=== PATIENT | male | born 1935 | race Caucasian/White ===

== ENCOUNTER 2019-12-29 15:43 | Emergency (ER) | payer OTHER, SELFPAY ==
--- NOTE | ~2019-12-29 | CT_ITS ---
EXAMINATION: CT abdomen pelvis w con DATE: 12/29/2019 17:28 INDICATION: Abdominal pain TECHNIQUE: Computed tomography (CT) of the abdomen and pelvis was performed with 100 cc Omnipaque 350 intravenous contrast. The dose-length product was 553.11 mGy-cm. Automated exposure control and iterative reconstruction technique were employed. COMPARISON: None. FINDINGS: There are mild peripheral reticular infiltrates in the lower lobes, possibly chronic fibros is. Moderate size hiatal hernia. Heart size is normal. No significant pleural or pericardial effusion . Gallbladder is contracted. The liver, spleen, adrenal glands and left kidney are unremarkable. There is a dilated right renal pelvis with abrupt termination at the UPJ, consistent with UPJ obstruction. There is mild urothelial enhancement of the right ureter, suspicious for ascending urinary tract infe ction. The bladder is severely distended with multiple diverticula. Prostate gland is enlarged. Left kidney is unremarkable. There is a complex soft tissue and gas collection involving the expected location of the pancreatic h ead which is insinuated anterior to the pancreatic and bile ducts. This structure effaces the adjacen t duodenum. One consideration is a complicated duodenal diverticulum versus necrotic pancreatic head mass. Nonobstructive bowel gas pattern. Colonic diverticulosis there is extensive pelvic arterial calcifica tion. Mild lumbar spondylosis. There is mixed lytic/sclerotic lesion of T11 which also involves the p osterior elements. No definite fracture. IMPRESSION: 1. Probable right UPJ obstruction with mild right urothelial enhancement, suspicious for ascending ur inary tract infection. 2: Enlarged prostate gland with significant bladder distention. Multiple bladder diverticula are iden tified. Findings suspicious for chronic bladder outlet obstruction. 3: Complex soft tissue and gas collection involving the expected location of the pancreatic head whic h is insinuated anterior to the pancreatic and bile ducts. Considerations include complicated duodena l diverticulum and necrotic pancreatic head malignancy. 4: Complex appearing T11 vertebra with mixed osteal lysis and sclerosis extending to the posterior el ements. Considerations include atypical hemangioma, Paget's disease and metastatic disease. Reviewed, dictated and finalized at location A. IMPRESSION: 1. Probable right UPJ obstruction with mild right urothelial enhancement, suspi cious for ascending urinary tract infection. 2: Enlarged prostate gland with significant bladder distention. Multiple bladde r diverticula are identified. Findings suspicious for chronic bladder outlet ob struction. 3: Complex soft tissue and gas collection involving the expected location of th e pancreatic head which is insinuated anterior to the pancreatic and bile ducts . Considerations include complicated duodenal diverticulum and necrotic pancrea tic head malignancy. 4: Complex appearing T11 vertebra with mixed osteal lysis and sclerosis extendi ng to the posterior elements. Considerations include atypical hemangioma, Paget 's disease and metastatic disease.
[2019-12-29 15:48] VITALS: BP 121/87; PULSE 82; RESP 20; TEMP 36.4; O2SAT 98
--- NOTE | 2019-12-29 16:37 | ED.ABDPAIN ---
HPI - Abdominal Pain General Chief Complaint: Abdominal Pain <Hugo Arriola PA-C - Last Filed: 12/29/19 19:53> Stated Complaint: abdominal pain/distention <Hugo Arriola PA-C - Last Filed: 12/29/19 19:53> Time Seen by Provider: 12/29/19 16:28 <Hugo Arriola PA-C - Last Filed: 12/29/19 19:53> Source: patient <Hugo Arriola PA-C - Last Filed: 12/29/19 19:53> Mode of arrival: ambulatory <Hugo Arriola PA-C - Last Filed: 12/29/19 19:53> Limitations: no limitations <Hugo Arriola PA-C - Last Filed: 12/29/19 19:53> History of Present Illness HPI narrative: Patient is a 84-year-old male who presents to emergency department for evaluation of generalized abdominal pain that radiates to the right shoulder noting that it has been present now for the last week and gradually worsened throughout the week denies similar occurrence in the past <Hugo Arriola PA-C - Last Filed: 12/29/19 19:53> Related Data Home Medications: Home Medications Medication Instructions Recorded Confirmed fenofibrate micronized 130 mg 130 mg PO DAILY 07/11/19 capsule omeprazole 20 mg capsule,delayed 20 mg PO DAILY 07/11/19 release <Hugo Arriola PA-C - Last Filed: 12/29/19 19:53> Allergies/Adverse Reactions: Allergies Allergy/AdvReac Type Severity Reaction Status Date / Time No Known Allergies Allergy Verified 12/29/19 16:33 <Hugo Arriola PA-C - Last Filed: 12/29/19 19:53> Review of Systems Review of Systems: All systems reviewed & are unremarkable except as noted in HPI and below <Hugo Arriola PA-C - Last Filed: 12/29/19 19:53> PMFSH Past Medical History Medical History: Medical History Vitamin B12 deficiency <Hugo Arriola PA-C - Last Filed: 12/29/19 19:53> Family History Family History: Family History Father Malignant neoplasm of prostate Carcinoma of colon Patient's father is Mother Family history of malignant neoplasm of breast in first degree relative Family history of malignant neoplasm Patient's mother is Sibling Patient's sister is in good health Patient's brother is in good health <Hugo Arriola PA-C - Last Filed: 12/29/19 19:53> Social History Social History: Social History Smoking status: Former smoker Smoking end date: 08/23/1963 Alcohol intake: current Gender identity (if verbalized by the patient): Male <Hugo Arriola PA-C - Last Filed: 12/29/19 19:53> Exam Narrative: Exam Narrative: GENERAL: Well-appearing, well-nourished, and in no acute distress. HEAD: Normocephalic, atraumatic. EYES: PERRLA and EOMI. ENT: Nares clear, no rhinorrhea or epistaxis. Mucous membranes moist. CHEST: Clear to auscultation. No respiratory distress. No wheezes rales or rhonchi HEART: Regular rate and rhythm. No murmur heard. Normal peripheral pulses. ABDOMEN: Soft, generalized tenderness with voluntary guarding, distended, normal active bowel sounds. EXTREMITIES: Normal range of motion. No edema. SKIN: Warm, dry, no rash. NEURO: No focal deficits. Alert and oriented x3. PSYCH: Normal mood and affect. <Hugo Arriola PA-C - Last Filed: 12/29/19 19:53> Course ANAESTHETIC TECHNICIAN/PA Physician Supervision Assumed care of patient from physician assistant manager bilingual at 2000 shift end, awaiting consultation with specialist at [facility]. Arrangements made for outpatient evaluation and care of patient's likely pancreatic mass. Patient will be referred to on-call urologist for his urinary retention. Patient has a primary care appointment with Dr. Mohamud on 01/03/2020. Advised to follow-up at that time and his primary care physician can assist with his outpatient evaluation at [place] and urology follow-u
[2019-12-29 16:52] LABS: Basophils Percent Auto 0.4 % (0.2-1.2); Eosinophils Absolute Auto 0.2 K/mm3 (0-0.3); Hematocrit 46.1 % (42.0-52.0); Hemoglobin 15.7 g/dL (14.0-18.0); Immature Granulocyte Absolute 0.01 K/mm3 (0.00-0.031); Immature Granulocyte Percent A 0.1 % (0-0.5); Lymphocytes Absolute Auto 2.15 K/mm3 (0.9-3.2); Lymphocytes Percent Auto 30.9 % (18.3-44.2); Mean Corpuscular HGB Conc 34.1 g/dl (32-36); Mean Corpuscular Hemoglobin 31.7 pg (26-34); Mean Corpuscular Volume 92.9 fl (80-100); Mean Platelet Volume 9.3 fl (7.4-10.4); Monocytes Absolute Auto 0.6 K/mm3 (0.1-0.6); Monocytes Percent Auto 8.2 % (2.6-8.5); Neutrophils Percent Auto 57.4 % (45.5-73.1); Platelet Count Result 313 k/mm3 (150-375); Red Blood Count 4.96 M/mm3 (4.6-6.20)
[2019-12-29] MEDS: FAMOTIDINE 20 MG/2 ML VIAL IV PUSH (16:53)
[2019-12-29] MEDS: SODIUM CHLORIDE 0.9% IV 1,000 ML 999 ML IV CONT (16:53)
[2019-12-29 17:02] LABS: Prothrombin Time 13.3 Seconds (11.1-14.7)
[2019-12-29 17:03] LABS: Lactic Acid Reflex 1.2 mmol/L (0.7-2.1); Partial Thromboplastin Time 31.8 SECONDS (22.3-36.8)
[2019-12-29 17:04] LABS: Add Urine Microscopic? YES; Appearance Urine Clear (Clear); Bilirubin Urine Negative (Negative); Blood Urine Negative (Negative); Color Urine Yellow (Yellow); Glucose Urine UA Negative (Negative); Ketones Urine Negative (Negative); Leukocyte Esterase Ur Negative LEU/UL (Negative); Nitrate Urine Negative (Negative); Protein Urine Negative (Negative); Urobilinogen Urine Negative mg/dL (<2.0); WBC Urine 0-3 /hpf
[2019-12-29 17:05] LABS: Alanine Aminotransferase 17 U/L (4-50); Albumin Level 4.4 g/dL (3.5-5.1); Alkaline Phosphatase 60 U/L (38-126); Aspartate Amino Transferase 30 U/L (17-59); Bilirubin,Total 0.4 mg/dL (0.2-1.3); Blood Urea Nitrogen 17 mg/dL (9-20); Calcium 9.9 mg/dL (8.4-10.2); Carbon Dioxide 26 mmol/L (22-30); Chloride 104 mmol/L (98-107); Estimated CRCL calculation 38 ml/min; Estimated Glomerular Filt Rate 53; Glucose 111 mg/dL (75-110); Lipase 180 U/L (23-300); Potassium 4.1 mmol/L (3.4-5.0); Sodium 137 mmol/L (137-145)
[2019-12-29 17:38] VITALS: BP 148/81; PULSE 71; RESP 18; O2SAT 97
[2019-12-29 20:09] VITALS: BP 138/92; PULSE 73; RESP 18; O2SAT 97
[2019-12-29 22:41] VITALS: BP 155/89; PULSE 65; RESP 18; O2SAT 97
[2019-12-29 22:54] VITALS: BP 146/88; PULSE 67; RESP 18; O2SAT 96
== END 2019-12-29 22:54 | disposition home or self-care (01) ==
PROVIDERS: Emergency Medicine Emergency Medical Services; Emergency Provider Emergency Medicine; PCP Internal Medicine
DX: K86.9 Disease of pancreas, unspecified (principal); R33.9 Retention of urine, unspecified; Z87.891 Personal history of nicotine dependence; E53.8 Deficiency of other specified B group vitamins
CPT/HCPCS: 36415; 51702; 74177; 80053; 81001; 83605; 83690; 85025; 85610; 85730; 96361; 96365; 96375; 99284; J0131; J7030; Q9967

== ENCOUNTER 2020-01-10 09:45 | Outpatient (CLI) | payer OTHER, SELFPAY ==
--- NOTE | ~2020-01-10 | US_ITS ---
EXAMINATION: US retroperitoneal comp DATE: 01/10/2020 10:24 INDICATION: Hydronephrosis TECHNIQUE: Multiple ultrasound grayscale images of the kidneys were obtained. COMPARISON: CT dated 12/29/2019 FINDINGS: The right kidney measures 10.4 x 6.2 x 5.1 cm. The left kidney measures 11.4 x 4.9 x 6.1 cm. The kidn eys demonstrate normal echogenicity. There is no hydronephrosis in either kidney. No stones identifi ed. The bladder is decompressed around a Shpepard catheter which limits evaluation although diffuse wall thickening is suggested. Prostatomegaly measuring 4.6 x 5.2 cm. IMPRESSION: 1. Normal kidneys without hydronephrosis. 2. Suggestion of bladder wall thickening however assessment is limited by decompressed state. This co uld be related to chronic outlet obstruction given the enlarged prostate and the presence of multiple bladder diverticula on prior CT. Reviewed, dictated and finalized at location A. IMPRESSION: 1. Normal kidneys without hydronephrosis. 2. Suggestion of bladder wall thickening however assessment is limited by decom pressed state. This could be related to chronic outlet obstruction given the en larged prostate and the presence of multiple bladder diverticula on prior CT.
== END 2020-01-10 09:46 | disposition home or self-care (01) ==
PROVIDERS: PCP Internal Medicine; Visit Provider Urology
DX: N13.30 Unspecified hydronephrosis (principal)
CPT/HCPCS: 76770

== ENCOUNTER 2020-04-01 13:10 | Outpatient (CLI) | payer OTHER, SELFPAY ==
--- NOTE | 2020-04-01 13:12 | ECG_ITS ---
Measurements Intervals [place] Rate: 75 P: 59 DE: 159 QRS: 27 QRSD: 142 T: 38 QT: 418 QTc: 469 Interpretive Statements SINUS RHYTHM FREQUENT VENTRICULAR PREMATURE COMPLEXES RIGHT BUNDLE BRANCH BLOCK BASELINE ARTIFACT- I, II, AVR, AVL, AVF ABNORMAL ECG Electronically Signed On 04-01-2020 13:37:55 CDT by Andrey Hightower D.O.
== END 2020-04-01 13:11 | disposition home or self-care (01) ==
PROVIDERS: PCP Internal Medicine; Visit Provider Urology
DX: Z01.818 Encounter for other preprocedural examination (principal); E78.5 Hyperlipidemia, unspecified; N40.0 Benign prostatic hyperplasia without lower urinary tract symptoms; R94.31 Abnormal electrocardiogram [ECG] [EKG]
CPT/HCPCS: 87086; 87088; 93005

== ENCOUNTER 2020-04-08 00:11 | Outpatient (CLI) | payer OTHER, SELFPAY ==
[2020-04-08 20:23] LABS: SARS-CoV-2 RNA PCR Negative
== END 2020-04-08 00:12 | disposition home or self-care (01) ==
LOC: ANHCOVIDDT 00:11
PROVIDERS: PCP Internal Medicine; Visit Provider Urology
DX: Z01.812 Encounter for preprocedural laboratory examination (principal); Z20.828 Contact with and (suspected) exposure to other viral communicable diseases
CPT/HCPCS: 87635; C9803; U0003

== ENCOUNTER 2020-04-10 01:39 | Day surgery (SDC) | payer OTHER, SELFPAY ==
[2020-03-28 09:59] VITALS: BMI 23.6
--- NOTE | 2020-04-10 08:27 | WPDANESEPPF ---
Anes - Initial Pre Proc Eval Procedure: Operation Date: 04/10/20 13:00 Proposed Procedures p Urolift - Zhen Arciniega MD Date/Time: 04/10/20 08:27 Surgeon: Zhen Arciniega MD Pre Op Diagnosis: BPH Patient Data Age: 84 Gender: M Height: 1.75 m Weight: 72.6 kg Allergies Allergy/AdvReac Type Severity Reaction Status Date / Time No Known Allergies Allergy Verified 03/28/20 09:34 Home Medications Medication Instructions Recorded Confirmed Type dutasteride 0.5 mg capsule 0.5 mg PO DAILY #90 cap 08/22/19 04/10/20 Rx fenofibrate micronized 130 mg 130 mg PO DAILY #90 cap 02/26/20 04/10/20 Rx capsule omeprazole 20 mg capsule,delayed 20 mg PO DAILY #90 cap 02/26/20 04/10/20 Rx release simvastatin 40 mg tablet 40 mg PO DAILY #90 tablet 03/19/20 04/10/20 Rx cholecalciferol (vitamin D3) 50 mcg PO DAILY 03/28/20 04/10/20 History cyanocobalamin (vitamin B-12) 2,500 mcg PO DAILY 03/28/20 04/10/20 History multivitamin,ad-ewee-okkgfrse 1 tablet PO DAILY 03/28/20 04/10/20 History [Complete Multivitamin] niacin 500 mg PO DAILY 03/28/20 04/10/20 History omega 1-utr-rba-fish oil [Fish Oil] 1 cap PO DAILY 03/28/20 04/10/20 History tamsulosin [Flomax] 0.4 mg PO HS 03/28/20 04/10/20 History vitamin E 400 unit PO DAILY 03/28/20 04/10/20 History vitamins A,C,W-chyo-pkgbgm 1 cap PO DAILY 03/28/20 04/10/20 History [PreserVision AREDS] ECG: Date of Service: 04/01/20 Procedure(s): CA 12 lead EKG Accession Number(s): [id number] cc: ~ Measurements Intervals [place] Rate: 75 P: 59 VA: 159 QRS: 27 QRSD: 142 T: 38 QT: 418 QTc: 469 Interpretive Statements SINUS RHYTHM FREQUENT VENTRICULAR PREMATURE COMPLEXES RIGHT BUNDLE BRANCH BLOCK BASELINE ARTIFACT- I, II, AVR, AVL, AVF ABNORMAL ECG Electronically Signed On 810-2020 13:37:55 CDT by Andrey Hightower D.O. Dictated By: Andrey Hightower DO 04/01/20 1349 Patient hx anesthesia problems: none Family hx anesthesia problems: none PMFSH Past Medical History Medical History (Updated 04/10/20 @ 08:29 by Dar Ramirez MD) Anxiety Arthritis BPH without urinary obstruction Gastro-esophageal reflux disease without esophagitis Hyperlipidemia, unspecified Pancreatic mass Urinary retention Vitamin B12 deficiency Social History Social History Smoking packs per day: 3 Smoking cigarettes per day: 60.0 Years smoked: 11 Smoking pack-years: 33.00 Smoking status: Former smoker Tobacco type: cigarettes Smoking end date: 08/23/1963 Alcohol intake: current Drinks per week: 1 Alcohol use details: BEER Living arrangements: with family Gender identity (if verbalized by the patient): Male Spiritual care concerns: No Anes - Eval Final PreProcedure Day of Procedure 04/10/20 08:27 Patient weight: normal Heart: regular rate and rhythm Lungs: clear to auscultation and normal air movement Airway: Mallampati scale class II Neurological: alert and oriented Last oral intake: >/= 8 hours ASA classification: II Emergent: no Anesthetic plan: proceed Anesthesia type and monitoring: general GIVS and LMA Informed Consent: The patient's anesthetic plan and its attendant risks and benefits were discussed with the patient/family/POA. Questions were solicited and answers provided to the satisfaction of the patient/family/POA.
[2020-04-10] MEDS: ACETAMINOPHEN 500 MG TABLET 1000 MG PO (11:23)
[2020-04-10] MEDS: LACTATED RINGERS 1,000 ML 30 ML IV CONT (11:29)
[2020-04-10 11:46] VITALS: BP 149/88; PULSE 72; TEMP 36.6; O2SAT 100
--- NOTE | 2020-04-10 13:07 | WPDHPUPDATE1 ---
History and Physical Update Update Date/Time: 04/10/20 13:07 History and Physical has been reviewed, including an updated exam of the patient. There are NO changes in the patient's condition. Risks, benefits, and alternatives have been discussed and questions answered. Patient agrees to proceed with procedure.
[2020-04-10] MEDS: ceFAZolin 2 GM/D5W 50 ML 2 GM/50 ML BAG IVPB (13:12)
[2020-04-10] MEDS: LIDOCAINE HCL 2% GEL UROJET 10 ML PKG MUCOUS MEM (13:39)
--- NOTE | 2020-04-10 13:53 | PM.PROC ---
Procedure Note - Detailed Date of procedure: 04/10/20 Pre-op diagnosis: BPH Post-op diagnosis: same Procedure performed: Urolift Description of procedure: Description of procedure: Informed consent was obtained, the patient was taken to the operating room, was given preoperative IV antibiotics. He was given a MAC anesthetic. He was placed in the dorsal lithotomy position. He was prepped and draped in usual sterile fashion. We inserted a lidocaine Uro-Jet. A 20-Korean cystoscope was inserted via the urethra into the bladder. Inspection revealed bilobar prostatic hyperplasia with moderate bladder trabeculation. We then replaced the cystoscope bridge with urolift delivery-based system. First treatment site was left side 2 cm distal to the bladder neck. The device was angled laterally approximately 20 degrees to compress the lateral lobe. The trigger was pulled, pulling a needle containing the implant into the prostate. The needle was then retracted allowing one end of the implant to be delivered in the capsular side of the prostate. The implant was then tensioned to assure capsular seating and removal of the slack monofilament. The device was then angled back towards midline advancing proximally until cystoscopic verification of the monofilament delivery being delivered. The ureteral end piece was then affixed to the monofilament there by tailoring the size of the implant. Excess filament was then severed. The delivery device was then readvanced into the bladder. We then placed an identical procedure on the right side. We then inspected with a visual obturator. We inserted a flexible cystoscope, with retroflexion we did not note any of the urolift tabs to be in the bladder. We then placed 2 additional implants just proximal to the verumontanum in an identical fashion. Inspection at this point revealed a continuous anterior channel present throughout the prostatic urethra with irrigation fluid turned off. There was good hemostasis. The implants sat appropriately. A Sheppard catheter was inserted. The patient was then awakened, taken to the recovery room in stable condition Implants: 4 Anesthesia: MAC Surgeon: Zhen Arciniega MD Estimated blood loss (mL): 25 Drains: Yes Packing: No Pathology: none sent Complications: No immediate complications Condition: stable Disposition: PACU
[2020-04-10 14:00] VITALS: BP 120/71; PULSE 60
[2020-04-10 14:30] VITALS: BP 125/80; PULSE 58; RESP 14
[2020-04-10 15:00] VITALS: BP 131/81; PULSE 58; RESP 14
--- NOTE | 2020-04-10 15:34 | SUR.PHASEII ---
INSTALLED PT LEG BAG FOR HOME AND PT IS MORE THAN COMFORTABLE WITH PLAN HOME.
== END 2020-04-10 15:25 | disposition home or self-care (01) ==
PROVIDERS: PCP Internal Medicine; Visit Provider Urology
PROC: 0T7D8DZ Dilation of Urethra with Intraluminal Device, Via Natural or Artificial Opening Endoscopic (ICD-10-PCS; CPT 52441; principal; 2020-04-10 13:00)
DX: N40.1 Benign prostatic hyperplasia with lower urinary tract symptoms (principal); R33.8 Other retention of urine; E78.5 Hyperlipidemia, unspecified; K21.9 Gastro-esophageal reflux disease without esophagitis; F41.9 Anxiety disorder, unspecified; E53.8 Deficiency of other specified B group vitamins; Z87.891 Personal history of nicotine dependence
CPT/HCPCS: C9740; A9270; J0690; J2405; J2704; J3010; J7120; L8699

== ENCOUNTER 2020-07-02 08:57 | Outpatient (CLI) | payer OTHER, SELFPAY ==
--- NOTE | ~2020-07-02 | MR_ITS ---
EXAMINATION: MR abdomen wo/w con DATE: 07/02/2020 10:23 INDICATION: Pancreatic mass. TECHNIQUE: Magnetic resonance imaging (MRI) of the abdomen was performed without and with 14 mL Multi Tata intravenous contrast. Sequences included coronal T2-weighted FS FSE, coronal and axial FS FIEST A, axial T2-weighted FSE, coronal LAVA-flex, axial STIR FSE, axial DWI, axial dual-echo T1-weighted F SPGR, and axial LAVA. Postcontrast sequences included coronal LAVA-flex and a time course of axial LA VA. COMPARISON: CT abdomen and pelvis 12/29/2019 FINDINGS: There is a large sliding hiatal hernia. There is a 3 mm cyst in the liver. The gallbladder, spleen, p ancreas, and adrenal glands are normal. There is a diverticulum of the second portion of the duodenum . There are cysts in the kidneys measuring up to 7 mm on the left. There are no dilated loops of eusebio l. The bladder is markedly distended with trabeculated wall. There are no pathologically enlarged lym ph nodes. There is no free intraperitoneal fluid. 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 IMPRESSION: 1. Normal pancreas. 2. Diverticulum of the second portion of the duodenum correlating with the CT abnormality. 3. Large sliding hiatal hernia. 4. 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 5. Markedly distended bladder with trabeculated wall. Reviewed, dictated and finalized at location B. OYMENT LEGAL ASSISTANT IMPRESSION: 1. Normal pancreas. 2. Diverticulum of the second portion of the duodenum correlating with the CT a bnormality. 3. Large sliding hiatal hernia. 4. 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 5. Markedly distended bladder with trabeculated wall.
[2020-07-02 09:39] LABS: Estimated Glomerular Filt Rate > 60
== END 2020-07-02 08:58 | disposition home or self-care (01) ==
LOC: ANHIMG 09:03
PROVIDERS: PCP Internal Medicine
DX: K86.89 Other specified diseases of pancreas (principal); K44.9 Diaphragmatic hernia without obstruction or gangrene; K57.10 Diverticulosis of small intestine without perforation or abscess without bleeding
CPT/HCPCS: 74183; A9577

== ENCOUNTER 2020-09-25 14:55 | Emergency (ER) | payer OTHER, SELFPAY ==
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
[2020-09-25 15:05] VITALS: BP 149/91; PULSE 97; RESP 16; TEMP 36.1; O2SAT 99
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
--- NOTE | 2020-09-25 16:45 | PC.NURSE ---
To CT via w/c.
== END 2020-09-25 17:31 | disposition home or self-care (01) ==
PROVIDERS: Emergency Provider Emergency Medicine; PCP Internal Medicine
DX: S39.012A Strain of muscle, fascia and tendon of lower back, initial encounter (principal); F41.9 Anxiety disorder, unspecified; M19.90 Unspecified osteoarthritis, unspecified site; K21.9 Gastro-esophageal reflux disease without esophagitis; E78.5 Hyperlipidemia, unspecified; V43.52XA Car driver injured in collision with other type car in traffic accident, initial encounter
CPT/HCPCS: 70450; 72131; 99284

== ENCOUNTER 2021-02-13 08:03 | Observation (INO) | payer OTHER, SELFPAY ==
[2021-02-13] VITALS (9 sets, daily range): BP systolic 120–140; BP diastolic 55–95; PULSE 76–109; RESP 14–18; TEMP 36.9–37.6; O2SAT 96–100; BMI 24.7
--- NOTE | ~2021-02-13 | US_ITS ---
EXAMINATION: US scrotum doppler DATE: 02/13/2021 09:41 INDICATION: Nontraumatic right testicular pain. Possible hydrocele. TECHNIQUE: Testicular sonogram utilizing grayscale and Doppler COMPARISON: None. FINDINGS: The right testis measures 4.2 x 3.0 x 3.2 cm. The left testis measures 3.5 x 2.7 x 2.3 cm. Symmetric normal grayscale appearance to both testes. Vascular flow with arterial waveforms identified at both testes but with asymmetric increased flow to the right testis suspicious for orchitis. There are prom inent bilateral anechoic epididymal cysts, the largest measuring up to 1.7 cm maximal diameter on the right and 1.4 cm in maximal diameter on the left. There is mild increased vascular flow on color Dop pler in the right epididymis relative to the left. There is a moderate-sized mildly complex right hyd rocele containing a few thin linear internal septations. Mild left varicocele. IMPRESSION: 1. Likely right-sided epididymoorchitis with increased vascular flow on color Doppler and with moder ate-sized likely mildly complex right hydrocele. Reviewed, dictated and finalized at location A. IMPRESSION: 1. Likely right-sided epididymoorchitis with increased vascular flow on color Doppler and with moderate-sized likely mildly complex right hydrocele.
--- NOTE | 2021-02-13 08:29 | ED.MALEGU ---
HPI - Male Genitourinary General Chief complaint: Urogenital-Male Stated complaint: swollen testicle Time Seen by Provider: 02/13/21 08:21 Source: patient Mode of arrival: ambulatory Limitations: no limitations History of Present Illness HPI Narrative: 85 years old white male presents with pain and swelling of the right testicle started 5 days ago, nontraumatic, denies any fever, chills, nausea, vomiting, abdominal pain or having similar symptoms in the past. History of GERD, benign prostatic hypertrophy. Related Data Home Medications Medication Instructions Recorded Confirmed Complete Multivitamin 1 tablet PO DAILY 03/28/20 11/21/20 PreserVision AREDS 1 cap PO DAILY 03/28/20 11/21/20 cholecalciferol (vitamin D3) 50 mcg PO DAILY 03/28/20 11/21/20 niacin 500 mg PO DAILY 03/28/20 11/21/20 omega 0-dmd-qrk-fish oil [Fish Oil] 1 cap PO DAILY 03/28/20 11/21/20 tamsulosin [Flomax] 0.4 mg PO HS 03/28/20 11/21/20 cyanocobalamin (vitamin B-12) 2,500 mcg PO DAILY 11/21/20 11/21/20 2,500 mcg tablet Allergies Allergy/AdvReac Type Severity Reaction Status Date / Time No Known Allergies Allergy Verified 02/13/21 08:10 Review of Systems Review of Systems: Narrative: CONSTITUTIONAL: Denies fever, chills, or sweats. EYES: Denies visual changes, redness, or discharge. ENT: Denies rhinorrhea, congestion, sore throat, or otalgia. CARDIOVASCULAR: Denies chest pain, palpitations, or edema. RESPIRATORY: Denies cough or dyspnea. GASTROINTESTINAL: Denies abdominal pain, nausea, vomiting, or diarrhea. GENITOURINARY: Denies dysuria or hematuria. SKIN: Denies rash or itching. MUSCULOSKELETAL: Denies back pain, joint pain, or myalgia. NEUROLOGIC: Denies headache, numbness, or weakness. PSYCHIATRIC: Denies anxiety or depression. [facility] Past Medical History Medical History Anxiety Arthritis Bilateral impacted cerumen Blood in stool BPH without urinary obstruction Ear lesion Gastro-esophageal reflux disease without esophagitis Hyperlipidemia, unspecified Pancreatic mass Snoring Urinary retention Vitamin B12 deficiency Family History Family History Father Malignant neoplasm of prostate Carcinoma of colon Patient's father is Mother Family history of malignant neoplasm of breast in first degree relative Family history of malignant neoplasm Patient's mother is Sibling Patient's sister is in good health Patient's brother is in good health Social History Social History Smoking packs per day: 3 Smoking cigarettes per day: 60.0 Years smoked: 11 Smoking pack-years: 33.00 Smoking status: Former smoker Tobacco type: cigarettes Second hand tobacco smoke exposure: Yes Smoking end date: 08/23/1963 Alcohol intake: current Drinks per week: 2 Gender identity (if verbalized by the patient): Male Spiritual care concerns: No Exam Narrative: Exam Narrative: General appearance: Well-developed, well-nourished Skin: Normal color Head: Normocephalic, nontraumatic Eyes: Clear conjunctiva ENT: Oropharynx normal, ears normal, nose normal Neck: Supple, nontender Chest and respiratory: Airway patent, no respiratory distress, no accessory muscle use Heart: Regular rate/rhythm Abdomen: Soft, nontender, no organomegaly, quiet bowel sounds, testicular exam showed slightly red right side of the scrotum, large diffusely tender of the right testicle. No lymphadenopathy, no discharge, no warmth Vascular: Normal peripheral pulses, normal capillary refill. 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
[2021-02-13 08:46] LABS: Basophils Percent Auto 0.1 % (0.2-1.2); Eosinophils Percent Auto 0.2 % (0-4.4); Hematocrit 43.8 % (42.0-52.0); Hemoglobin 14.9 g/dL (14.0-18.0); Immature Granulocyte Absolute 0.08 K/mm3 (0.00-0.031); Immature Granulocyte Percent A 0.5 % (0-0.5); Lymphocytes Absolute Auto 1.15 K/mm3 (0.9-3.2); Lymphocytes Percent Auto 7.8 % (18.3-44.2); Mean Corpuscular Hemoglobin 31.7 pg (26-34); Mean Corpuscular Volume 93.2 fl (80-100); Mean Platelet Volume 9.2 fl (7.4-10.4); Monocytes Percent Auto 7.1 % (2.6-8.5); Neutrophils Absolute Auto 12.4 K/mm3 (1.3-6.7); Neutrophils Percent Auto 84.3 % (45.5-73.1); Platelet Count Result 267 k/mm3 (150-375); Red Cell Distribution Width 13.2 % (11.5-14.5); White Blood Count 14.7 K/mm3 (4.5-10.0)
[2021-02-13 08:54] LABS: Alanine Aminotransferase 20 U/L (4-50); Albumin Level 4.4 g/dL (3.5-5.1); Alkaline Phosphatase 56 U/L (38-126); Anion Gap 11 mmol/L (8-16); Aspartate Amino Transferase 34 U/L (17-59); Bilirubin,Total 1.1 mg/dL (0.2-1.3); Blood Urea Nitrogen 15 mg/dL (9-20); Calcium 9.9 mg/dL (8.4-10.2); Carbon Dioxide 23 mmol/L (22-30); Chloride 105 mmol/L (98-107); Estimated CRCL calculation 37 ml/min; Estimated Glomerular Filt Rate 52; Glucose 131 mg/dL (75-110); Potassium 3.9 mmol/L (3.4-5.0); Sodium 139 mmol/L (137-145)
[2021-02-13 11:27] LABS: Add Urine Microscopic? YES; Appearance Urine Cloudy (Clear); Bacteria Urine Trace /hpf; Bilirubin Urine Negative (Negative); Blood Urine Negative (Negative); Color Urine Amber (Yellow); Glucose Urine UA Negative (Negative); Ketones Urine Negative (Negative); Leukocyte Esterase Ur 2+ LEU/UL (Negative); Mucus Urine Heavy /lpf; Nitrate Urine Negative (Negative); Protein Urine 1+ mg/dL (Negative); Specific Grav Ur 1.018 (1.001-1.035); Squamous Epithelial Cell Urine Rare /hpf (Few); WBC Urine >75 /hpf
[2021-02-13] MEDS: CIPROFLOXACIN 400 MG/D5W 200ML 200 ML 200 MG IVPB ×2 (12:12→20:00)
--- NOTE | 2021-02-13 12:38 | PC.NURSE ---
Called dietary and spoke to Magaly, ordered lunch tray for pt at this time.
--- NOTE | 2021-02-13 13:45 | PM.IMHP ---
H&P: HPI History of Present Illness Date/Time: 02/13/21 13:45 Chief Complaint: Pain and swelling in the right testicle. Narrative: This is an 85-year-old male with benign prostatic hyperplasia status post UroLift in March 2020, dyslipidemia, anxiety, and GERD who presented to the emergency department earlier today via private vehicle from home for evaluation of pain and swelling in the right testicle that started between 5 and 7 days ago. He has a difficult time describing the pain but is not been severe enough for him to take analgesics. It does not radiate and it seems to be worse with movement and pressure in the area. He has not had a fever to his knowledge but has had some chills the past couple of nights. He has never had similar symptoms in the past and denies urinary symptoms, specifically denying hesitancy, urgency, dysuria, hematuria, and penile discharge. Review of Systems Review of Systems: Narrative: Twelve systems were reviewed with pertinent positives and negatives as per HPI. No known fever. He denies recent cold and flu symptoms. No nausea, vomiting, or diarrhea. Except as documented, all other systems were reviewed and are negative. [facility] Past Medical History Medical History Anxiety Arthritis Benign prostatic hyperplasia History of urinary retention. Status post year UroLift in March 2020. Dyslipidemia Gastroesophageal reflux disease Vitamin B12 deficiency Surgical History Surgical History (Updated 02/13/21 @ 17:53 by Dahlia Ahn PA-C) History of colonoscopy (04/2011) Internal hemorrhoids and diverticulosis. Per Dr. Flynn. History of prostate surgery (03/2020) Status post UroLift per Dr. Arciniega. Status post LASIK surgery of both eyes Family History Family History Father Malignant neoplasm of prostate Carcinoma of colon Patient's father is Mother Family history of malignant neoplasm of breast in first degree relative Family history of malignant neoplasm Patient's mother is Sibling Patient's sister is in good health Patient's brother is in good health Social History Social History (Updated 02/13/21 @ 17:54 by Dahlia Ahn PA-C) Social History: Surrogate decision maker: Shelby Holguin, . Code status: Do not resuscitate. Smoking packs per day: 1 Smoking cigarettes per day: 20.0 Years smoked: 11 Smoking pack-years: 11.00 Smoking status: Former smoker Tobacco type: cigarettes Second hand tobacco smoke exposure: No Smoking end date: 08/23/1963 Alcohol intake: current Drinks per week: 1 Substance use: never Additional living arrangements comments: The patient lives in [place] with his . Additional occupation/education comments: Retired but still very active. Gender identity (if verbalized by the patient): Male Spiritual care concerns: No Meds Home Medications and Allergies Home Medications Medication Instructions Recorded Confirmed Type dutasteride 0.5 mg capsule 0.5 mg PO DAILY #90 cap 08/22/19 02/13/21 Rx Complete Multivitamin 1 tablet PO DAILY 03/28/20 02/13/21 History cholecalciferol (vitamin D3) 50 mcg PO DAILY 03/28/20 02/13/21 History niacin 500 mg PO DAILY 03/28/20 02/13/21 History omega 0-ohk-bxo-fish oil [Fish Oil] 1 cap PO DAILY 03/28/20 02/13/21 History tamsulosin [Flomax] 0.4 mg PO HS 03/28/20 02/13/21 History simvastatin 40 mg tablet See Rx Instructions .ROUTE 09/11/20 02/13/21 Rx .COMPLEX #90 tablet omeprazole 20 mg capsule,delayed 20 mg PO DAILY #90 cap 09/12/20 02/13/21 Rx release cyanocobalamin (vitamin B-12) 2,500 mcg PO DAILY 11/21/20 02/13/21 History 2,500 mcg tablet fenofibrate micronized 130 mg DAILY 02/13/21 02/13/21 History Allergies Allergy/AdvReac Type Severity Reaction Status Date / Time No Known Allergies Ramakrishna
--- NOTE | 2021-02-13 16:05 | WPDURCON ---
Assessment and Plan Assessment and plan (1) Epididymitis: Code(s): N45.1 - Epididymitis Status: Acute Assessment and Plan: US of scrotum shows Likely right-sided epididymoorchitis with increased vascular flow on color Doppler and with moderate-sized likely mildly complex right hydrocele. Admit to medicine and treat with IV antibiotics. Will continue to follow. Urology Consult Note HPI Date Seen: 02/13/21 Requesting Physician: João Donnelly MD Primary Care Provider: Venancio Mohamud DO Consult Narrative Narrative: Bradley Holguin is a 85 year old male who presented to the ER with right testicle pain and swelling that started one week ago. He denies fever, chills, nausea or vomiting. He also denies urinary symptoms such as: dysuria, frequency, urgency, hematuria or flank pain. He has never had this happen before. His WBC is 14.7 and creatinine is 1.30. US of scrotum shows Likely right-sided epididymoorchitis with increased vascular flow on color Doppler and with moderate-sized likely mildly complex right hydrocele Review of Systems Cardiovascular: Cardiovascular: Denies chest pain Respiratory: Respiratory: Reports no additional respiratory complaints Gastrointestinal: Gastrointestinal: Denies abdominal pain, Denies nausea and Denies vomiting Genitourinary: Genitourinary: Denies hematuria, Reports genital pain, Denies dysuria, Denies flank pain, Denies testicular pain, Denies urinary frequency and Denies urinary hesitancy PMFSH Past Medical History Medical History Anxiety Arthritis Benign prostatic hyperplasia History of urinary retention. Status post year UroLift in March 2020. Dyslipidemia Gastroesophageal reflux disease Vitamin B12 deficiency Surgical History Surgical History History of colonoscopy (04/2011) Internal hemorrhoids and diverticulosis. Per Dr. Flynn. History of prostate surgery (03/2020) Status post UroLift per Dr. Arciniega. Family History Family History Father Malignant neoplasm of prostate Carcinoma of colon Patient's father is Mother Family history of malignant neoplasm of breast in first degree relative Family history of malignant neoplasm Patient's mother is Sibling Patient's sister is in good health Patient's brother is in good health Social History Social History Social History: Surrogate decision maker: Shelby Holguin, . Code status: Full code. Smoking packs per day: 1 Smoking cigarettes per day: 20.0 Years smoked: 11 Smoking pack-years: 11.00 Smoking status: Former smoker Tobacco type: cigarettes Second hand tobacco smoke exposure: No Smoking end date: 08/23/1963 Alcohol intake: current Drinks per week: 1 Substance use: never Additional living arrangements comments: The patient lives in [place] with his . Gender identity (if verbalized by the patient): Male Spiritual care concerns: No Meds Home Medications and Allergies Home Medications Medication Instructions Recorded Confirmed Type dutasteride 0.5 mg capsule 0.5 mg PO DAILY #90 cap 08/22/19 02/13/21 Rx Complete Multivitamin 1 tablet PO DAILY 03/28/20 02/13/21 History cholecalciferol (vitamin D3) 50 mcg PO DAILY 03/28/20 02/13/21 History niacin 500 mg PO DAILY 03/28/20 02/13/21 History omega 1-frz-smr-fish oil [Fish Oil] 1 cap PO DAILY 03/28/20 02/13/21 History tamsulosin [Flomax] 0.4 mg PO HS 03/28/20 02/13/21 History simvastatin 40 mg tablet See Rx Instructions .ROUTE 09/11/20 02/13/21 Rx .COMPLEX #90 tablet omeprazole 20 mg capsule,delayed 20 mg PO DAILY #90 cap 09/12/20 02/13/21 Rx release cyanocobalamin (vitamin B-12) 2,500 mcg PO DAILY 11/21/20 02/13/21 History 2,50
[2021-02-13] MEDS: TAMSULOSIN HCL 0.4 MG CAPSULE PO (20:00)
[2021-02-13] MEDS: ACETAMINOPHEN 325 MG TABLET 650 MG PO (22:15)
[2021-02-14 00:15] VITALS: TEMP 36.8
[2021-02-14 06:34] VITALS: BP 117/68; PULSE 63; RESP 18; TEMP 36.1; O2SAT 97
[2021-02-14 06:48] LABS: Basophils Percent Auto 0.4 % (0.2-1.2); Eosinophils Absolute Auto 0.1 K/mm3 (0-0.3); Eosinophils Percent Auto 1.2 % (0-4.4); Hematocrit 41.6 % (42.0-52.0); Hemoglobin 13.9 g/dL (14.0-18.0); Immature Granulocyte Absolute 0.03 K/mm3 (0.00-0.031); Immature Granulocyte Percent A 0.4 % (0-0.5); Lymphocytes Absolute Auto 1.97 K/mm3 (0.9-3.2); Lymphocytes Percent Auto 26.2 % (18.3-44.2); Mean Corpuscular HGB Conc 33.4 g/dl (32-36); Mean Corpuscular Hemoglobin 31.6 pg (26-34); Mean Corpuscular Volume 94.5 fl (80-100); Mean Platelet Volume 9.4 fl (7.4-10.4); Monocytes Absolute Auto 0.7 K/mm3 (0.1-0.6); Monocytes Percent Auto 8.8 % (2.6-8.5); Neutrophils Absolute Auto 4.7 K/mm3 (1.3-6.7); Platelet Count Result 255 k/mm3 (150-375); Red Cell Distribution Width 13.2 % (11.5-14.5); White Blood Count 7.5 K/mm3 (4.5-10.0)
[2021-02-14 07:35] LABS: Anion Gap 8 mmol/L (8-16); Blood Urea Nitrogen 16 mg/dL (9-20); Calcium 9.7 mg/dL (8.4-10.2); Carbon Dioxide 27 mmol/L (22-30); Chloride 106 mmol/L (98-107); Estimated CRCL calculation 37 ml/min; Estimated Glomerular Filt Rate 52; Glucose 113 mg/dL (75-110); Magnesium 1.7 mg/dL (1.6-2.3); Potassium 4.1 mmol/L (3.4-5.0); Sodium 141 mmol/L (137-145)
[2021-02-14] MEDS: CIPROFLOXACIN 400 MG/D5W 200ML 200 ML 200 MG IVPB ×2 (09:35→20:06)
[2021-02-14] MEDS: CHOLECALCIFEROL 1,000 UNITS TABLET 2000 UNITS PO (09:35)
[2021-02-14] MEDS: ENOXAPARIN 40 MG/0.4 ML SYRINGE SUB-Q (09:36)
[2021-02-14] MEDS: FENOFIBRATE NANOCRYSTALLIZED 145 MG TABLET BY MOUTH (09:36)
[2021-02-14] MEDS: CYANOCOBALAMIN 500 MCG TABLET PO (09:36)
[2021-02-14] MEDS: CYANOCOBALAMIN 1,000 MCG TABLET 2000 MCG PO (09:36)
[2021-02-14] MEDS: DUTASTERIDE 0.5 MG CAPSULE PO (09:36)
[2021-02-14] MEDS: OMEGA 3 POLYUNSAT FATTY ACIDS 1 GM CAP PO (09:37)
[2021-02-14] MEDS: NIACIN SA 500 MG TABLET PO (09:37)
[2021-02-14] MEDS: THERAPEUTIC MULTIVITAMINS/MINERALS TAB (*BKC) 1 TABLET PO (09:37)
[2021-02-14] MEDS: SIMVASTATIN 20 MG TABLET 40 MG BY MOUTH (09:37)
[2021-02-14] MEDS: PANTOPRAZOLE 40 MG TABLET PO (09:37)
--- NOTE | 2021-02-14 13:42 | WPDUROPN2 ---
Progress Note: A&P Assessment and Plan (1) Epididymitis: Code(s): N45.1 - Epididymitis Status: Acute Assessment and Plan: Continue antibiotics, ok to discharge home at any time on Ciprofloxacin 500mg BID x 14 days. Urine culture pending. (2) Benign prostatic hyperplasia: Code(s): N40.0 - Benign prostatic hyperplasia without lower urinary tract symptoms Status: Acute Assessment and Plan: 1400cc of urine removed via norwood when patient had it placed. He is s/p Urolift last year with Dr. Arciniega. Patient will need to go home with a norwood and be seen next week for a voiding trial. Continue Dutasteride and Tamsulosin. (3) Urinary retention: Code(s): R33.9 - Retention of urine, unspecified Status: Acute Assessment and Plan: Possibly d/t infection? Subjective Subjective Date/Time Seen: 02/14/21 13:42 Right Epididymitis is Improved. Patient states his pain is much improved today and edema is improved also. He denies any difficulty urinating and is hoping to go home today. His WBC is 7.5 down from 14.7 and his urine culture is still pending, he is afebrile. He does however have a norwood catheter in place d/t 1400cc of urine on return during placement in the ER. HE was unable to urinate. Review of Systems Cardiovascular: Cardiovascular: Denies chest pain Respiratory: Respiratory: Denies no additional respiratory complaints Gastrointestinal: Gastrointestinal: Denies abdominal pain, Denies nausea and Denies vomiting Genitourinary: Genitourinary: Denies hematuria, Reports genital pain, Reports scrotal swelling, Reports testicular pain, Denies urinary frequency, Denies urinary hesitancy and Denies urinary urgency Exam Resp: Effort & Inspection: normal respiratory effort Cardio: Rate: regular rate GI: GI Palp: Yes Soft to palpation and No Tenderness to palpation present (GI) : General: Yes no CVA tenderness Testes: testicular swelling on the right and testicular tenderness on the right Other: right testicle is still reddened but not warm to touch Urinary Catheter: Urinary Catheter: patent and draining and urine clear Extrem: General: no edema Objective Data Vital Signs Vital Signs: Vital Signs - 24 hr 02/13/21 14:07 02/13/21 14:50 02/13/21 16:32 Temperature 98.5 F Pulse Rate 91 86 76 Respiratory Rate 16 17 14 Blood Pressure 130/72 127/81 124/73 Pulse Oximetry 97 96 100 02/13/21 19:09 02/13/21 19:52 02/14/21 00:15 Temperature 99.7 F H 98.2 F Pulse Rate 84 Respiratory Rate 18 Blood Pressure 125/55 L Pulse Oximetry 97 98 02/14/21 06:34 Temperature 97 F L Pulse Rate 63 Respiratory Rate 18 Blood Pressure 117/68 Pulse Oximetry 97 Intake/Output Intake/Output: Intake & Output 02/11/21 02/12/21 02/13/21 02/14/21 23:59 23:59 23:59 23:59 Intake Total 640 2370 Output Total 1400 2625 Balance -760 -255 Meds/Results Medications: Active Medications Generic Name Dose Route Start Last Admin Trade Name Freq PRN Reason Stop Dose Admin Acetaminophen 650 mg 02/13/21 17:59 02/13/21 22:15 Acetaminophen 325 Mg Tablet PO 650 mg Q6H PRN Administration Mild Pain (1-3) or Fever Cyanocobalamin 500 mcg 02/14/21 09:00 02/14/21 09:36 Cyanocobalamin 500 Mcg Tablet PO 500 mcg DAILY JESSICA Administration Cyanocobalamin 2,000 mcg 02/14/21 09:00 02/14/21 09:36 Cyanocobalamin 1,000 Mcg Tablet PO 2,000 mcg QAM JESSICA Administration Dutasteride 0.5 mg 02/14/21 09:00 02/14/21 09:36 Dutasteride 0.5 Mg Capsule PO 0.5 mg DAILY JESSICA Administration Enoxaparin Sodium 40 mg 02/14/21 09:00 02/14/21 09:36 Enoxaparin 40 Mg/0.4 Ml Syringe SUB-Q 40 mg DAILY JESSICA Administration Fenofibrate 145 mg 02/14/21 09:00 02/14/21 09:36 Fenofibrate Nanocrystallized 145 Mg Tablet BY MOUTH 03/16/21 09:01 145 mg DAILY JESSICA Administration Fish Oil 1 gm 02/14/21 09:00 02/14/21 09:37 [place] 3 [place]
[2021-02-14 14:00] VITALS: BP 118/78; PULSE 76; RESP 16; TEMP 36.4; O2SAT 97
--- NOTE | 2021-02-14 15:25 | PM.IMPN ---
Progress Note: A&P Assessment and Plan (1) Acute epididymo-orchitis: Code(s): N45.3 - Epididymo-orchitis Status: Acute Assessment and Plan: Continue cipro -Await urine cx -u/s showing right sided epididymoorchitis with increased vascular flow on color Doppler and with moderate-sized likely mildly complex right hydrocele. -Urine catheter in place. Pt has a hx of retention -Urology as seen the pt and agrees with tx plan and will follow up in the office -likely d/c tomorrow once cx prelim is back and pts pain and infection has improved (2) Right hydrocele: Code(s): N43.3 - Hydrocele, unspecified Status: Acute Assessment and Plan: Moderate-sized likely mildly complex right hydrocele noted on ultrasound today -Hopefully this will improve with tx of above (3) Abnormal urinalysis: Code(s): R82.90 - Unspecified abnormal findings in urine Status: Acute Assessment and Plan: Continue ciprofloxacin pending urine culture. (4) Benign prostatic hyperplasia: Code(s): N40.0 - Benign prostatic hyperplasia without lower urinary tract symptoms Status: Acute Assessment and Plan: Now with catheter and plan to go home with a leg bag since she has had this in the past -Continue dutasteride and tamsulosin. (5) Gastroesophageal reflux disease: Code(s): K21.9 - Gastro-esophageal reflux disease without esophagitis Status: Acute Assessment and Plan: No acute issues -Continue omeprazole. (6) Dyslipidemia: Code(s): E78.5 - Hyperlipidemia, unspecified Status: Acute Assessment and Plan: Continue simvastatin, [place] 3, and fenofibrate. Time Spent With Patient Time with patient: 25 - 35 minutes Subjective Date/time seen: 02/14/21 15:25 Interval history: Pt is a 85-year-old male with a history of urinary retention who presented emergency room for scrotal swelling found to have epididymitis. Patient states the swelling is still there but the pain has improved immensely. He is not having any pain when urinating but he now has a catheter. Pt denies nausea, vomiting, fevers, chills, constipation, diarrhea, chest pain, sob, or abdominal pain. RN states he has been walking without issue and no signs of weakness Review of Systems Review of Systems: All systems reviewed & are unremarkable except as noted in HPI and below Exam Narrative: Exam Narrative: General: Well developed well nourished patient in NAD HEENT: normocephalic Neck: supple Neuro: Alert and oriented x4 CV:RRR Resp:CTA Abd: Soft, non distended. No pain to palpation. Positive bowel sounds Extremities: No swelling, erythema, or pain to palpation. : right testicle swelling with pain to palpation Objective Data Vital Signs Vital Signs: Vital Signs - 24 hr 02/13/21 16:32 02/13/21 19:09 02/13/21 19:52 Temperature 98.5 F 99.7 F H Pulse Rate 76 84 Respiratory Rate 14 18 Blood Pressure 124/73 125/55 L Pulse Oximetry 100 97 98 02/14/21 00:15 02/14/21 06:34 02/14/21 14:00 Temperature 98.2 F 97 F L 97.5 F L Pulse Rate 63 76 Respiratory Rate 18 16 Blood Pressure 117/68 118/78 Pulse Oximetry 97 97 Intake/Output Intake/Output: Intake & Output 02/11/21 02/12/21 02/13/21 02/14/21 23:59 23:59 23:59 23:59 Intake Total 640 2370 Output Total 1400 2625 Balance -760 -255 Meds/Results Medications: Active Medications Generic Name Dose Route Start Last Admin Trade Name Barq PRN Reason Stop Dose Admin Acetaminophen 650 mg 02/13/21 17:59 02/13/21 22:15 Acetaminophen 325 Mg Tablet PO 650 mg Q6H PRN Administration Mild Pain (1-3) or Fever Cyanocobalamin 500 mcg 02/14/21 09:00 02/14/21 09:36 Cyanocobalamin 500 Mcg Tablet PO 500 mcg DAILY JESSICA Administration Cyanocobalamin 2,000 mcg 02/14/21 09:00 02/14/21 09:36 Cyanocobalamin 1,000 Mcg Tablet PO 2,000 mcg QAM JESSICA
[2021-02-14] MEDS: TAMSULOSIN HCL 0.4 MG CAPSULE PO (20:06)
[2021-02-14 20:11] VITALS: BP 122/71; PULSE 78; RESP 16; TEMP 36.6; O2SAT 98
[2021-02-15 06:14] VITALS: BP 121/78; PULSE 80; RESP 14; TEMP 36.6; O2SAT 98
--- NOTE | 2021-02-15 08:53 | PM.DS ---
DS: Admitting Diagnosis Admitting Diagnosis Admitting Diagnosis: Acute epididymo-orchitis DS: Discharge Diagnosis Discharge Diagnosis (1) Acute epididymo-orchitis: Code(s): N45.3 - Epididymo-orchitis Status: Acute Assessment and Plan: Patient received Cipro while hospitalized and was transition to renally dosed Levaquin at discharge - urine culture positive for Klebsiella oxytocia a that is sensitive to Cipro and Levaquin -u/s showing right sided epididymoorchitis with increased vascular flow on color Doppler and with moderate-sized likely mildly complex right hydrocele. -Urine catheter in place. Pt has a hx of retention. plan for outpatient urine voiding trial -Urology as seen the pt and agrees with tx plan and will follow up in the office (2) Right hydrocele: Code(s): N43.3 - Hydrocele, unspecified Status: Acute Assessment and Plan: Moderate-sized likely mildly complex right hydrocele noted on ultrasound today - improving with treatment - follow-up with urology (3) Abnormal urinalysis: Code(s): R82.90 - Unspecified abnormal findings in urine Status: Acute Assessment and Plan: + UTI - see above (4) Benign prostatic hyperplasia: Code(s): N40.0 - Benign prostatic hyperplasia without lower urinary tract symptoms Status: Acute Assessment and Plan: Now with catheter and plan to go home with a leg bag since she has had this in the past -Continue dutasteride and tamsulosin. (5) Gastroesophageal reflux disease: Code(s): K21.9 - Gastro-esophageal reflux disease without esophagitis Status: Acute Assessment and Plan: No acute issues -Continue omeprazole. (6) Dyslipidemia: Code(s): E78.5 - Hyperlipidemia, unspecified Status: Acute Assessment and Plan: Continue simvastatin, [place] 3, and fenofibrate. (7) Urinary tract infection: Qualifiers: Hematuria presence: with hematuria Urinary tract infection type: site unspecified Qualified Code(s): N39.0 - Urinary tract infection, site not specified; R31.9 - Hematuria, unspecified Code(s): N39.0 - Urinary tract infection, site not specified Status: Acute Assessment and Plan: as above DS: Summary Hospital Course Hospital Course: patient is a 85-year-old male with a history of urinary retention without current catheter who presented emergency room for pain and swelling of the right testicle which started 5 days prior with no systemic symptoms. bowel in the ER were temperature 37.6? C, pulse 109, respiratory rate 16, blood pressure 140/95, pulse ox 96 on room air. initial white blood cell count 14.7.. Creatinine 1.3. patient had evidence of urinary retention and a catheter was placed. UA was suspicious for UTI. Scrotal ultrasound showed likely right-sided epididymoorchitis with mildly complex right hydrocele. patient was admitted to the hospitalist service was started on IV Cipro and was observed. patient saw urology who recommended continued treatment and follow-up for a voiding trial. His urine culture grew Klebsiella oxytocia. The day of discharge she was feeling well and ready to go. He was educated about the worrisome signs and symptoms to come back to emergency room for was discharged stable condition. Status at Discharge Overall status at discharge: patient is progressing back to baseline Time Spent with Patient Time attestation: Total time spent providing and/or coordinating discharge services:34 min Time spent: Greater than 30 minutes Exam Narrative: Exam Narrative: General: Well developed well nourished patient in NAD HEENT: normocephalic Neck: supple Neuro: Alert and oriented x4 CV:RRR Resp:CTA Abd: Soft, non distended. No pain to palpation. Positive bowel sounds Extremities: No swelling, erythema, or pain to palpation. : right testicle swelling with pain to palpation
[2021-02-15] MEDS: CHOLECALCIFEROL 1,000 UNITS TABLET 2000 UNITS PO (09:18)
[2021-02-15] MEDS: PANTOPRAZOLE 40 MG TABLET PO (09:18)
[2021-02-15] MEDS: THERAPEUTIC MULTIVITAMINS/MINERALS TAB (*BKC) 1 TABLET PO (09:18)
[2021-02-15] MEDS: CYANOCOBALAMIN 1,000 MCG TABLET 2000 MCG PO (09:18)
[2021-02-15] MEDS: CIPROFLOXACIN 400 MG/D5W 200ML 200 ML 200 MG IVPB (09:18)
[2021-02-15] MEDS: OMEGA 3 POLYUNSAT FATTY ACIDS 1 GM CAP PO (09:18)
[2021-02-15] MEDS: NIACIN SA 500 MG TABLET PO (09:19)
[2021-02-15] MEDS: SIMVASTATIN 20 MG TABLET 40 MG BY MOUTH (09:19)
[2021-02-15] MEDS: CYANOCOBALAMIN 500 MCG TABLET PO (09:19)
[2021-02-15] MEDS: DUTASTERIDE 0.5 MG CAPSULE PO (09:19)
[2021-02-15] MEDS: FENOFIBRATE NANOCRYSTALLIZED 145 MG TABLET BY MOUTH (09:19)
[2021-02-15] MEDS: ENOXAPARIN 40 MG/0.4 ML SYRINGE SUB-Q (09:19)
== END 2021-02-15 10:20 | disposition home or self-care (01) ==
LOC: ANHED 11:05 → ANH3MED 14:06
PROVIDERS: Physician Assistant; Admitting Provider Internal Medicine; Emergency Provider Emergency Medicine; PCP Internal Medicine; Visit Provider Emergency Medicine
DX: N45.3 Epididymo-orchitis (principal); N43.3 Hydrocele, unspecified; N39.0 Urinary tract infection, site not specified; B96.1 Klebsiella pneumoniae [K. pneumoniae] as the cause of diseases classified elsewhere; N40.0 Benign prostatic hyperplasia without lower urinary tract symptoms; K21.9 Gastro-esophageal reflux disease without esophagitis; E78.5 Hyperlipidemia, unspecified; R33.9 Retention of urine, unspecified; F41.9 Anxiety disorder, unspecified; M19.90 Unspecified osteoarthritis, unspecified site; K86.9 Disease of pancreas, unspecified; E53.8 Deficiency of other specified B group vitamins; Z80.42 Family history of malignant neoplasm of prostate; Z79.83 Long term (current) use of bisphosphonates; Z80.3 Family history of malignant neoplasm of breast; Z80.0 Family history of malignant neoplasm of digestive organs; Z87.891 Personal history of nicotine dependence; Z96.0 Presence of urogenital implants
CPT/HCPCS: 36415; 76870; 80048; 80053; 81001; 83735; 85025; 87077; 87086; 87186; 93976; 96365; 96366; 96372; 96376; 99285; A9270; G0378; J0744; J1650

== ENCOUNTER 2022-02-19 13:38 | Emergency (ER) | payer OTHER, SELFPAY ==
[2022-02-19 13:59] VITALS: BP 119/86; PULSE 46; RESP 22; TEMP 36.6; O2SAT 99
--- NOTE | 2022-02-19 14:24 | ED.ABDPAIN ---
HPI - Abdominal Pain General Chief Complaint: Chest Pain Stated Complaint: heart quispe Time Seen by Provider: 02/19/22 14:24 History of Present Illness HPI narrative: Bradley Holguin is an 86 yo male with a PMH of GERD, cholesterol, BPH, who goes to [facility] complaining of heartburn. Sensation in his chest started about 530 last night he has taken Rolaids with no improvement.pulse rate is 46; Prior 2 visits to his physician's office his heart rate has been in the 80s -ekg done Related Data Home Medications Medication Instructions Recorded Confirmed cholecalciferol (vitamin D3) 50 50 mcg PO DAILY 03/28/20 01/20/22 mcg (2,000 unit) tablet multivitamin,kc-qcyo-arvjsxsf 1 tablet PO DAILY 03/28/20 01/20/22 (Complete Multivitamin tablet) niacin 500 mg tablet 500 mg PO DAILY 03/28/20 01/20/22 omega 6-hex-dcm-fish oil 1,000 mg 1 cap PO DAILY 03/28/20 01/20/22 (120 mg-180 mg) capsule (Fish Oil) tamsulosin 0.4 mg capsule (Flomax) 0.4 mg PO HS 03/28/20 01/20/22 Allergies Allergy/AdvReac Type Severity Reaction Status Date / Time No Known Allergies Allergy Verified 02/19/22 14:57 Review of Systems Review of Systems: CONSTITUTIONAL: Denies fever, chills, sweats. EYES: Denies visual changes, redness, discharge. ENT: Denies rhinorrhea, congestion, sore throat, otalgia. CARDIOVASCULAR: Denies chest pain, palpitations, edema. RESPIRATORY: Denies dyspnea, wheezing, cough GASTROINTESTINAL: Denies abdominal pain, nausea, vomiting, diarrhea. GENITOURINARY: Denies dysuria, hematuria, abnormal discharge SKIN: Denies rash or itching. NEUROLOGIC: Denies numbness, or focal weakness. PSYCHIATRIC: Denies anxiety or depression. Heartburn that started at 530 last night-he took Rolaids PMFSH Past Medical History Medical History Anxiety Arthritis Benign prostatic hyperplasia History of urinary retention. Status post year UroLift in March 2020. Dyslipidemia Gastroesophageal reflux disease Vitamin B12 deficiency Surgical History Surgical History History of colonoscopy (04/2011) Internal hemorrhoids and diverticulosis. Per Dr. Flynn. History of prostate surgery (03/2020) Status post UroLift per Dr. Arciniega. Status post LASIK surgery of both eyes Family History Family History Father Malignant neoplasm of prostate Carcinoma of colon Patient's father is Mother Family history of malignant neoplasm of breast in first degree relative Family history of malignant neoplasm Patient's mother is Sibling Patient's sister is in good health Patient's brother is in good health Social History Social History Social History: Surrogate decision maker: Shelby Holguin, . Code status: Do not resuscitate. Smoking packs per day: 1 Smoking cigarettes per day: 20.0 Years smoked: 11 Smoking pack-years: 11.00 Smoking status: Former smoker Tobacco type: cigarettes Second hand tobacco smoke exposure: No Smoking end date: 08/23/1963 Alcohol intake: current Drinks per week: 1 Alcohol use details: BEER Substance use: never Substance use type: does not use Additional living arrangements comments: The patient lives in [place] with his . Additional occupation/education comments: Retired but still very active. Gender identity (if verbalized by the patient): Male Spiritual care concerns: No Comments At time of signature, I agree with nursing past medical, surgical, social and family history. There is no relevant family history pertinent to the presenting complaint. Exam Narrative: GENERAL: This is an elderly well-nourished, well-developed patient, in mild distress. Interactive and alert and oriented x4 HEAD: normocephalic, atraumatic
[2022-02-19 14:55] VITALS: PULSE 94; RESP 21; O2SAT 99
--- NOTE | 2022-02-19 15:13 | PC.NURSE ---
1441- Aspirin 324mg given to patient verified by Tracy Sheth
== END 2022-02-19 14:55 | disposition short-term general hospital (02) ==
PROVIDERS: Emergency Provider Nurse Practitioner; PCP Internal Medicine
DX: R94.31 Abnormal electrocardiogram [ECG] [EKG] (principal); Z87.891 Personal history of nicotine dependence; M19.90 Unspecified osteoarthritis, unspecified site; E78.5 Hyperlipidemia, unspecified; K21.9 Gastro-esophageal reflux disease without esophagitis
CPT/HCPCS: 93005; 99215; A9270; G0463

== ENCOUNTER 2022-02-19 15:21 | Inpatient (IN) | payer OTHER, SELFPAY ==
[2022-02-19] VITALS (15 sets, daily range): BP systolic 102–127; BP diastolic 70–83; PULSE 84–95; RESP 12–25; TEMP 36.6–37.3; O2SAT 94–99; BMI 22.6
--- NOTE | ~2022-02-19 | US_ITS ---
US abdomen limited INDICATION: Elevated liver function tests PROCEDURE: Realtime right upper abdominal ultrasound. COMPARISON: No prior studies for comparison. FINDINGS: The pancreas is normal without focal mass or pancreatic ductal dilation. Liver echotexture is normal without focal mass or intrahepatic biliary dilatation. There is normal directional flow i n the portal vein. The gallbladder is normal without stones, gallbladder wall thickening or pericholecystic fluid. Comm on bile duct measures 3.6 mm. No sonographic Bell's sign. IMPRESSION: 1: Normal limited abdominal ultrasound. Reviewed, dictated and finalized at location A.
--- NOTE | ~2022-02-19 | XR_ITS ---
EXAMINATION: XR chest 1V portable INDICATION: Chest pain, STEMI TECHNIQUE: Portable AP chest at 1738 hours COMPARISON: 12/07/2010 FINDINGS: The lungs are free of acute opacities. No pleural effusion or pneumothorax. The cardiomedia stinal silhouette is normal. IMPRESSION: 1. No acute cardiopulmonary abnormality. Reviewed, dictated and finalized at location F.
--- NOTE | 2022-02-19 15:42 | ED.CHESTPAIN ---
HPI - Chest Pain General Chief Complaint: Chest Pain Stated Complaint: CP Time Seen by Provider: 02/19/22 15:26 Source: patient History of Present Illness HPI narrative: Patient presents with chest pain and EKG changes. Patient jose he has had epigastric pain and chest pain since about 5:00 yesterday was seen at an urgent care this morning was found to have an abnormal EKG EMS was called and transported to the ER for further evaluation. EKG did show ST changes STEMI was called by EMS. [employer] was activated. Patient jose pain the left side of his chest achy, constant, no clear aggravating or alleviating factors associated with shortness of breath. Did improve with some aspirin. Related Data Home Medications Medication Instructions Recorded Confirmed cholecalciferol (vitamin D3) 50 50 mcg PO DAILY 03/28/20 02/19/22 mcg (2,000 unit) tablet multivitamin,ko-ercp-yauugxfp 1 tablet PO DAILY 03/28/20 02/19/22 (Complete Multivitamin tablet) niacin 500 mg tablet 500 mg PO DAILY 03/28/20 02/19/22 omega 9-jmd-sxq-fish oil 1,000 mg 1 cap PO DAILY 03/28/20 02/19/22 (120 mg-180 mg) capsule (Fish Oil) tamsulosin 0.4 mg capsule (Flomax) 0.4 mg PO HS 03/28/20 02/19/22 simvastatin 40 mg tablet 40 mg PO DAILY 02/19/22 02/19/22 Allergies Allergy/AdvReac Type Severity Reaction Status Date / Time No Known Allergies Allergy Verified 02/19/22 15:36 Review of Systems Review of Systems: CONSTITUTIONAL: Denies fever, chills, or sweats. EYES: Denies visual changes, redness, or discharge. ENT: Denies rhinorrhea, congestion, sore throat, or otalgia. CARDIOVASCULAR: Denies palpitations, or edema. RESPIRATORY: Reports shortness of breath GASTROINTESTINAL: Denies abdominal pain, nausea, vomiting, or diarrhea. GENITOURINARY: Denies dysuria or hematuria. SKIN: Denies rash or itching. MUSCULOSKELETAL: Denies back pain, joint pain, or myalgia. NEUROLOGIC: Denies headache, numbness, dizziness, or weakness. PSYCHIATRIC: Denies anxiety or depression. All systems reviewed & are unremarkable except as noted in HPI and below PMFSH Past Medical History Medical History Anxiety Arthritis Benign prostatic hyperplasia History of urinary retention. Status post year UroLift in March 2020. Dyslipidemia Gastroesophageal reflux disease Vitamin B12 deficiency Surgical History Surgical History History of colonoscopy (04/2011) Internal hemorrhoids and diverticulosis. Per Dr. Flynn. History of prostate surgery (03/2020) Status post UroLift per Dr. Arcniiega. Status post LASIK surgery of both eyes Family History Family History Father Malignant neoplasm of prostate Carcinoma of colon Patient's father is Mother Family history of malignant neoplasm of breast in first degree relative Family history of malignant neoplasm Patient's mother is Sibling Patient's sister is in good health Patient's brother is in good health Social History Social History Social History: Surrogate decision maker: Shelby Holguin, . Code status: Do not resuscitate. Smoking packs per day: 1 Smoking cigarettes per day: 20.0 Years smoked: 11 Smoking pack-years: 11.00 Smoking status: Former smoker Tobacco type: cigarettes Second hand tobacco smoke exposure: No Smoking end date: 08/23/1963 Alcohol intake: unknown Drinks per week: 1 Alcohol use details: BEER Substance use: never Substance use type: does not use Additional living arrangements comments: The patient lives in [place] with his . Additional occupation/education comments: Retired but still very active. Gender identity (if verbalized by the patient): Male Spiritual care concerns: No Exam Narrative: Harjinder
[2022-02-19 15:51] LABS: Basophils Percent Auto 0.2 % (0.2-1.2); Eosinophils Percent Auto 0.1 % (0-4.4); Hematocrit 42.6 % (42.0-52.0); Hemoglobin 14.6 g/dL (14.0-18.0); Immature Granulocyte Absolute 0.08 K/mm3 (0.00-0.031); Immature Granulocyte Percent A 0.4 % (0-0.5); Lymphocytes Absolute Auto 1.49 K/mm3 (0.9-3.2); Lymphocytes Percent Auto 7.8 % (18.3-44.2); Mean Corpuscular HGB Conc 34.3 g/dl (32-36); Mean Corpuscular Hemoglobin 31.7 pg (26-34); Mean Corpuscular Volume 92.6 fl (80-100); Mean Platelet Volume 9.3 fl (7.4-10.4); Monocytes Absolute Auto 1.1 K/mm3 (0.1-0.6); Monocytes Percent Auto 5.8 % (2.6-8.5); Neutrophils Absolute Auto 16.3 K/mm3 (1.3-6.7); Neutrophils Percent Auto 85.7 % (45.5-73.1); Platelet Count Result 407 k/mm3 (150-375)
[2022-02-19 16:00] LABS: Alanine Aminotransferase 103 U/L (6-50); Albumin Level 4.4 g/dL (3.5-5.1); Alkaline Phosphatase 69 U/L (38-126); Anion Gap 9 mmol/L (8-16); Aspartate Amino Transferase 740 U/L (17-59); Bilirubin,Total 0.9 mg/dL (0.2-1.3); Blood Urea Nitrogen 17 mg/dL (9-20); Calcium 10.2 mg/dL (8.4-10.2); Carbon Dioxide 24 mmol/L (22-30); Chloride 104 mmol/L (98-107); Cholesterol 185 mg/dL (0-200); Estimated CRCL calculation 50 ml/min; Estimated Glomerular Filt Rate > 60; Glucose 129 mg/dL (65-110); HDL Direct 38 mg/dL; Potassium 3.8 mmol/L (3.4-5.0); Sodium 137 mmol/L (137-145); Triglycerides 150 mg/dL (<150)
[2022-02-19 16:01] LABS: INR 1.2; Prothrombin Time 14.6 Seconds (11.1-14.7)
[2022-02-19 16:02] LABS: Partial Thromboplastin Time 33.3 SECONDS (22.3-36.8)
[2022-02-19 16:11] LABS: LDL Cholesterol Direct 108 mg/dL
[2022-02-19 16:27] LABS: Troponin I > 80.000 ng/mL (0.000-0.034)
--- NOTE | 2022-02-19 16:52 | ECG_ITS ---
Measurements Intervals [place] Rate: 87 P: 70 WA: 156 QRS: 266 QRSD: 141 T: 59 QT: 397 QTc: 479 Interpretive Statements SINUS RHYTHM WITH OCCASIONAL SUPRAVENTRICULAR PREMATURE COMPLEXES RIGHT AXIS DEVIATION [QRS AXIS > 100] RIGHT BUNDLE BRANCH BLOCK [120+ ms QRS DURATION, UPRIGHT V1, 40+ ms S IN I/aVL/V4/V5/V6] ANTEROLATERAL MYOCARDIAL INFARCTION ACUTE OR RECENT Electronically Signed On 02-19-2022 18:12:34 CDT by La Wolfe M.D. COMPARED TO ECG 02/19/2022 14:30:35 NO SIGNIFICANT CHANGES MTDD
--- NOTE | 2022-02-19 16:57 | WPDCARDPROC ---
Cardiac Cath Procedure Note Date of procedure:: 02/19/22 Performing physician:: Virgil Dumont MD Indication:: anterior wall HI /late presentation Brief clinical history:: this is an 86-year-old man with a history of dyslipidemia and no previous history of coronary disease he presented to an urgent care center earlier this afternoon with symptoms of chest pain. ECG was felt to show evidence of anterior infarction he was transported emergently to the ER. The patient's chest pain unfortunately began at about 530 yesterday evening. Been having pain for about 20-22 hours prior to arrival here. Electrocardiogram shows sinus rhythm with right bundle branch block which is chronic but also anterior wall infarction which is new with lateral ST segment elevation and deep Q-waves across the precordium already. Despite this late presentation emergency angiography and PCI have been recommended. Procedure Procedure performed:: Emergency coronary angiogram emergency PCI(GARETH) to the proximal LAD Sedation/Medication given:: no additional sedation given case start time 3:52 p.m. case end time 4:45 p.m. Access site:: right femoral artery Estimated blood loss:: 25 cc Procedure note:: patient was brought to the cardiac catheterization lab in the emergency setting described above the right femoral triangle was prepared and draped in the normal fashion. Anesthesia was given in the right groin with 1% lidocaine. Using the modified Seldinger technique the common femoral artery was punctured and a 6 Vincentian vascular sheath was placed. Following this I used a 5 Vincentian JR4 catheter to engage and inject the right coronary artery in orthogonal projections. After this I used a 6 Vincentian CLS 3.5 guiding catheter to engage and inject the left coronary artery in multiple projections. The cineangiograms were reviewed and PCI of the LAD was recommended and carried out as detailed below. Prior to PCI patient received 180 mg of oral Brilinta. He had received 325 mg of aspirin in the emergency room. He was systemically anticoagulated with a bolus and infusion of Angiomax for this PCI. Following conclusion of the intervention the sheath was sutured into position he was taken back to the ICU for post HI PCI recovery. The procedure was uncomplicated and uneventful. 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 Findings:: Hemodynamics: central aortic pressure is 138/78. Left ventricle was not entered during this procedure the left main coronary artery is relatively short but nicely patent the left anterior descending is a medium caliber artery which is 100% occluded about 15 mm after its ostium. There is no antegrade flow in the LAD the occlusion is typical in appearance of abrupt thrombotic occlusion. Circumflex is a moderate caliber artery giving rise to 2 marginal branches the circumflex system has modest diffuse luminal irregularities with atherosclerosis but no angiographically significant disease. The right coronary artery is moderate to large caliber and dominant to the posterior circulation the right coronary artery also has mild diffuse luminal irregularities but no angiographically significant lesions are seen. Intervention: The LAD was initially wired using a 0.014 BMW guidewire. I was not able to track the BMW into the LAD lumen the wire was tracking into the position of a more proximal diagonal. I left this wire in position and then used a 0.014 regional airline pilot 150 wire which did track into the left anterior descending down to the apex. I then withdrew the BMW wire. We made serial balloon inflations from the proximal occlusion more distal to that with a 3.0 x 20 mm balloon. Following this there was re-establishment of sluggish flow down to the apex the distal portion of the LAD was very small and diffusely disease. I gave 200 mcg of intracoronary nitroglycerin which did improve the antegrade filling down to the apex. Following t
--- NOTE | 2022-02-19 17:06 | PM.IMHP ---
H&P: HPI History of Present Illness Date/Time: 02/19/22 17:06 Chief Complaint: chest pain Narrative: this is a 86-year-old man I am seeing at the request of the ED staff because anterior wall STEMI was declared in the emergency room. The patient is unknown to me prior to this presentation. Apparently this gentleman presented to an urgent care center a short time ago reporting burning retrosternal chest pain he described as indigestion. His electrocardiogram was diagnostic of anterior infarction therefore taken to the emergency for further evaluation and treatment. STEMI was declared on route. Unfortunately the patient states that this retrosternal burning pain began at about 5:30 p.m. yesterday. He chose not present for medical attention until this afternoon. Pain was severe all last night kept him up all night it is much less severe as he is being prepped for angiography. Electrocardiogram shows sinus rhythm with chronic right bundle branch block and anterior infarction which was not seen on previous ECG with Q-waves across the precordium. Upon arrival in the labor specialist presenting laboratory data is not yet available. The patient has a history of dyslipidemia denies any history of hypertension or diabetes. He does not smoke. Review of Systems Review of Systems: ROS unobtainable: Yes unobtainable due to medical condition PMFSH Past Medical History Medical History Anxiety Arthritis Benign prostatic hyperplasia History of urinary retention. Status post year UroLift in March 2020. Dyslipidemia Gastroesophageal reflux disease Vitamin B12 deficiency Surgical History Surgical History History of colonoscopy (04/2011) Internal hemorrhoids and diverticulosis. Per Dr. Flynn. History of prostate surgery (03/2020) Status post UroLift per Dr. Arciniega. Status post LASIK surgery of both eyes Family History Family History Father Malignant neoplasm of prostate Carcinoma of colon Patient's father is Mother Family history of malignant neoplasm of breast in first degree relative Family history of malignant neoplasm Patient's mother is Sibling Patient's sister is in good health Patient's brother is in good health Social History Social History Social History: Surrogate decision maker: Shelby Holguin, . Code status: Do not resuscitate. Smoking packs per day: 1 Smoking cigarettes per day: 20.0 Years smoked: 11 Smoking pack-years: 11.00 Smoking status: Former smoker Tobacco type: cigarettes Second hand tobacco smoke exposure: No Smoking end date: 08/23/1963 Alcohol intake: current Drinks per week: 1 Alcohol use details: BEER Substance use: never Substance use type: does not use Additional living arrangements comments: The patient lives in [place] with his . Additional occupation/education comments: Retired but still very active. Gender identity (if verbalized by the patient): Male Spiritual care concerns: No Meds Home Medications and Allergies Home Medications Medication Instructions Recorded Confirmed Type dutasteride 0.5 mg capsule 0.5 mg PO DAILY #90 caps 08/22/19 01/20/22 Rx (Avodart) cholecalciferol (vitamin D3) 50 50 mcg PO DAILY 03/28/20 01/20/22 History mcg (2,000 unit) tablet multivitamin,sk-wxyv-zxqdjpmi 1 tablet PO DAILY 03/28/20 01/20/22 History (Complete Multivitamin tablet) niacin 500 mg tablet 500 mg PO DAILY 03/28/20 01/20/22 History omega 9-wip-ugb-fish oil 1,000 mg 1 cap PO DAILY 03/28/20 01/20/22 History (120 mg-180 mg) capsule (Fish Oil) tamsulosin 0.4 mg capsule (Flomax) 0.4 mg PO HS 03/28/20 01/20/22 History Saccharomyces boulardii 250 mg 250 mg PO BID 10 days #20 caps
--- NOTE | 2022-02-19 18:01 | PC.NURSE ---
1701 This patient, Bradley Holguin, was admitted to Intensive Care Unit-3. Patient/family oriented to hospital policies and general routines including ID bracelet, bed and alarms, visiting hours, pain management, procedures, bathroom and other care routines, personal items, smoking policy, room service/diet, and visiting hours. Information on how to activate the Rapid Response Team has been discussed. Patient/Family are encouraged to report perceived risks to care and to ask questions if they do not understand what they are told or what they should do.
[2022-02-19] MEDS: SODIUM CHLORIDE 0.9% IV 1,000 ML 125 ML IV CONT (18:16)
[2022-02-19 18:29] LABS: Cholesterol 171 mg/dL (0-200); HDL Direct 34 mg/dL; Triglycerides 142 mg/dL (<150)
[2022-02-19 18:39] LABS: LDL Cholesterol Direct 97 mg/dL
[2022-02-19 18:47] LABS: Troponin I > 80.000 ng/mL (0.000-0.034)
[2022-02-19 21:49] LABS: Troponin I > 80.000 ng/mL (0.000-0.034)
[2022-02-19] MEDS: carvediloL 3.125 MG TABLET PO (22:28)
[2022-02-19] MEDS: SACUBITRIL/VALSARTAN 24-26 MG TABLET 1 TAB PO (22:32)
[2022-02-20] VITALS (22 sets, daily range): BP systolic 88–116; BP diastolic 54–79; PULSE 82–143; RESP 14–28; TEMP 36.6–37.2; O2SAT 93–100
--- NOTE | 2022-02-20 | ECHO_ITS ---
Patient Info Name: Bradley Holguin Age: 86 years : 1935 Gender: Male Ht: 69 in Wt: 161 lbs BSA: 1.89 m2 HR: 85 bpm BP: 98 / 62 mmHg Heart Rhythm: Sinus Rhythm Exam Date: 02/20/2022 9:25 AM Exam Location: [facility] Patient Status: Inpatient Admit Date: 02/19/2022 Staff Ordering Physician: Virgil Dumont MD Protective Signal Superintendent: Brett Bell, JIGNA, RT Attending Provider: Virgil Dumont MD Exam Type: CA echo doppler color flow Study Info Complete two-dimensional, color flow and Doppler transthoracic echocardiogram is performed. Strain analysis performed. Summary 1. Complete two-dimensional, color flow and Doppler transthoracic echocardiogram is performed. 2. The apex is dyskinetic. 3. The anteroseptal segment is akinetic. 4. The base of the anterior wall contracts the remainder of the anterior wall is akinetic. 5. Left ventricular systolic function is severely reduced, estimated at 30-35%. 6. Left ventricular chamber dimension is moderately enlarged. 7. Left atrial chamber dimension is moderately enlarged. 8. There is mild aortic valve sclerosis. 9. There is trace mitral valve regurgitation. Left Ventricle Left ventricular chamber dimension is moderately enlarged. Left ventricular systolic function is severely reduced, estimated at 30-35%. The left ventricular diastolic function is grade I diastolic dysfunction. The base of the anterior wall contracts the remainder of the anterior wall is akinetic. The apex is dyskinetic. The anteroseptal segment is akinetic. Right Ventricle Right ventricular chamber dimension is normal. Left Atria Left atrial chamber dimension is moderately enlarged. Right Atria Right atrial chamber dimension is normal. Aortic Valve The aortic valve is trileaflet. There is mild aortic valve sclerosis. Pulmonic Valve The pulmonic valve is not well visualized. Mitral Valve The mitral valve has normal leaflets. There is trace mitral valve regurgitation. The mitral valve annulus is moderately calcified. Tricuspid Valve The tricuspid valve leaflets are normal. There is mild tricuspid valve regurgitation. Pericardium/Pleural The pericardium appears normal. Aorta The aortic root size at the sinus of Valsalva is normal. Left Ventricular Outflow Tract Name Value Normal LVOT 2D LVOT Diameter 2.0 cm LVOT Doppler LVOT Peak Gradient 3 mmHg LVOT Mean Gradient 2 mmHg LVOT VTI 16 cm LVOT VTI/AV VTI Ratio 0.6 LVOT Stroke Volume 49 ml LVOT CO 5.9 l/min LVOT CI 3.1 l/min/m2 Mitral Valve Name Value Normal MV Doppler MV Decel Daniels 399 cm/s2 MV PHT
[2022-02-20 04:59] LABS: Basophils Percent Auto 0.1 % (0.2-1.2); Hematocrit 40.4 % (42.0-52.0); Hemoglobin 13.5 g/dL (14.0-18.0); Immature Granulocyte Percent A 0.6 % (0-0.5); Lymphocytes Absolute Auto 0.71 K/mm3 (0.9-3.2); Lymphocytes Percent Auto 4.4 % (18.3-44.2); Mean Corpuscular HGB Conc 33.4 g/dl (32-36); Mean Corpuscular Hemoglobin 31.6 pg (26-34); Mean Corpuscular Volume 94.6 fl (80-100); Mean Platelet Volume 9.3 fl (7.4-10.4); Monocytes Absolute Auto 1.2 K/mm3 (0.1-0.6); Monocytes Percent Auto 7.3 % (2.6-8.5); Neutrophils Absolute Auto 14.2 K/mm3 (1.3-6.7); Neutrophils Percent Auto 87.6 % (45.5-73.1); Platelet Count Result 318 k/mm3 (150-375); Red Blood Count 4.27 M/mm3 (4.6-6.20); Red Cell Distribution Width 14.2 % (11.5-14.5); White Blood Count 16.2 K/mm3 (4.5-10.0)
[2022-02-20 05:08] LABS: Alanine Aminotransferase 88 U/L (6-50); Albumin Level 3.5 g/dL (3.5-5.1); Alkaline Phosphatase 58 U/L (38-126); Anion Gap 6 mmol/L (8-16); Aspartate Amino Transferase 581 U/L (17-59); Bilirubin,Total 1.2 mg/dL (0.2-1.3); Blood Urea Nitrogen 18 mg/dL (9-20); Calcium 9.1 mg/dL (8.4-10.2); Carbon Dioxide 22 mmol/L (22-30); Chloride 107 mmol/L (98-107); Estimated CRCL calculation 46 ml/min; Estimated Glomerular Filt Rate > 60; Glucose 137 mg/dL (65-110); Magnesium 1.6 mg/dL (1.6-2.3); Potassium 3.7 mmol/L (3.4-5.0); Sodium 135 mmol/L (137-145)
--- NOTE | 2022-02-20 05:11 | ECG_ITS ---
Measurements Intervals [place] Rate: 138 P: [place]: 0 QRS: -88 QRSD: 149 T: 89 QT: 285 QTc: 433 Interpretive Statements ATRIAL FLUTTER/TACHYCARDIA WITH RAPID VENTRICULAR RESPONSE RIGHT BUNDLE BRANCH BLOCK LEFT ANTERIOR FASCICULAR BLOCK LOW VOLTAGE- LIMB LEADS ANTEROSEPTAL INFARCT, AGE INDETERMINATE ANTEROLATERAL INFARCT, PROBABLY RECENT ABNORMAL ECG Electronically Signed On 02-20-2022 11:58:47 CDT by Andrey Hightower D.O.
[2022-02-20 08:12] LABS: Hepatitis B Surface Antigen Negative (Negative)
[2022-02-20 08:18] LABS: HAV RESULT Negative (Negative); Hepatitis B Core IgM Result Negative (Negative)
[2022-02-20] MEDS: ASPIRIN 81 MG CHEWABLE TABLET PO (08:22)
[2022-02-20] MEDS: carvediloL 3.125 MG TABLET PO ×2 (08:24→20:19)
[2022-02-20] MEDS: ROSUVASTATIN 10 MG TABLET 20 MG PO (08:24)
[2022-02-20] MEDS: TICAGRELOR 90 MG TABLET PO ×2 (08:25→20:18)
[2022-02-20] MEDS: SACUBITRIL/VALSARTAN 24-26 MG TABLET 1 TAB PO ×2 (08:25→20:19)
[2022-02-20 08:30] LABS: Hepatitis C Virus Antibody Negative (Negative)
--- NOTE | 2022-02-20 08:56 | PM.PNCARD ---
Progress Note: A&P Assessment and Plan (1) ST elevation (STEMI) myocardial infarction: Qualifiers: Involved coronary artery: unspecified coronary artery Qualified Code(s): I21.3 - ST elevation (STEMI) myocardial infarction of unspecified site Code(s): I21.3 - ST elevation (STEMI) myocardial infarction of unspecified site Status: Acute Plan 86-year-old man with coronary artery disease presenting for the 1st time yesterday with acute anterior wall infarction. Unfortunately very late presentation and I relatively certain the patient will not have any myocardial salvage since the presentation was very late and by ECG and troponin criteria this was a completed event at the time of presentation. Hemodynamically he is relatively stable he still has occasional ventricular ectopic activity which of course is not surprising no complex arrhythmias. He does have a pericardial rub this morning compatible with this transmural infarction. Given his advanced age and the extensive nature of this infarction his prognosis is guarded at this time. Systolic blood pressure is in the high 90s which is ideal for this situation. Virgil Dumont MD [facility] Subjective Date/time seen: date of service:02/20/22 08:56 Interval history: 86-year-old gentleman with: Acute anterior wall myocardial infarction admitted yesterday and brought to the director of cath lab where proximal occlusion of the LAD was identified and treated successfully using 2 drug-eluting stents. Unfortunately the patient presented about 22 hours after symptom onset and had a completed event at the time of presentation. Troponin was greater than 80 and has remained such and ECG suggests completed event. Echocardiogram will be ordered for today. Patient is asymptomatic this morning feels well he is hoping to be discharged by Wednesday because he has a important family event to attend. Exam Const: General: comfortable and no acute distress Other: Elderly white male comfortable flat in bed no distress HENMT: Mouth: Yes moist mucous membranes Eyes: Sclera: sclerae normal Pupils: Equal, round and reactive pupils present Neck: Neck: supple and no JVD Resp: Effort & Inspection: normal respiratory effort Other: breath sounds are clear this morning Cardio: Rate: regular rate Rhythm: regular rhythm Other: 2 component pericardial rub is audible this morning GI: GI Palp: Yes Soft to palpation Auscultation: normal bowel sounds Skin: General skin exam: normal color Neuro: Other: normal cognition Extrem: Other: no edema, adequate distal perfusion Objective Data Vital Signs Vital Signs: Vital Signs - 24 hr 02/19/22 15:24 02/19/22 15:35 02/19/22 17:39 Temperature 36.6 C Pulse Rate 95 87 86 Respiratory Rate 13 Blood Pressure 111/76 Pulse Oximetry 97 Oxygen Delivery Room Air 02/19/22 17:39 02/19/22 18:00 02/19/22 18:00 Temperature 37.3 C Pulse Rate 86 88 88 Respiratory Rate 15 25 H Blood Pressure 127/83 120/83 Pulse Oximetry 98 99 Oxygen Delivery 02/19/22 20:00 02/19/22 23:30 02/20/22 00:00 Temperature 36.9 C 36.9 C 37.2 C Pulse Rate 84 89 86 Respiratory Rate 22 H 16 18 Blood Pressure 106/74 102/72 103/75 Pulse Oximetry 96 94 95 Oxygen Delivery 02/19/22 22:28 02/19/22 20:55 02/19/22 21:00 Temperature 36.8 C 36.8 C Pulse Rate 87 86 86 Respiratory Rate 16 18 Blood Pressure 117/74 115/76 Pulse Oximetry 95 97 Oxygen Delivery 02/19/22 21:15 02/19/22 21:30 02/19/22 21:45 Temperature 36.8 C 36.9 C 36.8 C Pulse Rate 87 84 85 Respiratory Rate 21 H 12 19 Blood Pressure 112/79 113/70 109/74 Pulse Oximetry 96 97 97 Oxygen Delivery 02/19/22 22:00 02/19/22 22:30 02/19/22 23:00 Temperature 36.8 C 36.8 C 36.8 C Pulse Rate 87 87 90 Respiratory Rate 14 19 19 Blood Pressure 113/80 107/81 114/81 Pulse Oximetry 97 96 96 Oxygen Delivery 02/20/22 01:00 02/20/22 02:00 02/20/22 03:
--- NOTE | 2022-02-20 09:15 | WPDCNINT ---
Assessment and Plan Assessment and plan (1) ST elevation (STEMI) myocardial infarction: Qualifiers: Involved coronary artery: unspecified coronary artery Qualified Code(s): I21.3 - ST elevation (STEMI) myocardial infarction of unspecified site Code(s): I21.3 - ST elevation (STEMI) myocardial infarction of unspecified site Status: Acute Assessment and Plan: Patient presented with substernal chest pain with burning sensation, found to have anterior acute ST-elevation myocardial infarction on EKG -patient was taken to the catheterization the catheterization lab status post GARETH x2 to proximal LAD -cardiology following the patient -continue aspirin, carvedilol, rosuvastatin, ticagrelor, Entresto (2) Elevated LFTs: Code(s): R79.89 - Other specified abnormal findings of blood chemistry Status: Acute Assessment and Plan: Elevated LFTs could be related to myocardial infarction -will check hepatitis panel and right upper quadrant ultrasound Additional Plan Nutrition: Heart healthy diet Code status: Full code Critical care time spent: 42 minutes This dictation may have been done utilizing a voice recognition system. Attempts have been made to correct errors. However, there may be uncorrected grammatical, spelling, and recognition errors present. Due to a high probability of clinically significant, life threatening deterioration, the patient required my highest level of preparedness to intervene emergently and I personally spent this critical care time directly and personally managing the patient. This critical care time included obtaining a history; examining the patient; pulse oximetry; ordering and review of studies; arranging urgent treatment with development of a management plan; evaluation of patient's response to treatment; frequent reassessment; and discussions with other providers. It was exclusive of separately billable procedures and treating other patients and teaching time. Please see Assessment and Plan section and the rest of the note for further information on patient assessment and treatment Dietetic Intern Consult Note Consult date: 02/20/22 Reason for consult: STEMI s/p PTCA/PCI with GARETH x2 to proximal LAD HPI: Bradley Holguin is a 86 year old male with significant past medical history of anxiety, arthritis, BPH, dyslipidemia, GERD, vitamin B12 deficiency presented the ED on 02/19/2022 with complains of chest pain and EKG changes for acute anterior ST-elevation RI. patient has been complaining of chest pain that started on 02/18/2022, described as burning retrosternal pain which he thought was related to indigestion. Chest pain continued to be more severe and kept him awake all night patient finally presented the ED on 02/19/2022. Patient was taken to the mill laborer he has a emergent PTCA/PCI with GARETH x2 to the proximal LAD. Patient was transferred to the ICU for further management. Patient seen and examined this morning, continues to complain of some heartburn but no chest pain, denies any shortness of breath, nausea, vomiting, abdominal pain. States he feels better. Severe no arrhythmias noted overnight on the monitor. Patient is hemodynamically stable, on room air with good O2 sats, adequate urine output, afebrile Review of Systems Review of Systems: All systems reviewed & are unremarkable except as noted in HPI and below PMFSH Past Medical History Medical History Anxiety Arthritis Benign prostatic hyperplasia History of urinary retention. Status post year UroLift in March 2020. Dyslipidemia Gastroesophageal reflux disease Vitamin B12 deficiency Surgical History Surgical History History of colonoscopy (04/2011) Internal hemorrhoids and diverticulosis. Per Dr. Flynn. History of prostate surgery (03/2020) Status post UroLift per Dr. Arciniega. Status post DAVID
--- NOTE | 2022-02-20 14:44 | PC.NURSE ---
[facility] flyer was given to patient.
[2022-02-20] MEDS: AMIODARONE HCL 200 MG TABLET PO ×2 (15:21→20:18)
--- NOTE | 2022-02-20 17:06 | PC.NURSE ---
This patient, Bradley Holguin, was transferred to [facility] on 02/20/22 at 1706. Personal belongings sent with patient. Report given to Jere. Appropriate documentation sent with patient.
[2022-02-20] MEDS: AMIODARONE 150 MG/D5W 100 ML 150 MG/100 ML BAG 600 MG IV CONT (23:17)
[2022-02-20] MEDS: AMIODARONE 360 MG/D5W 200 ML 360 MG/200 ML BAG 33.33 MG IV CONT (23:26)
[2022-02-21] VITALS (16 sets, daily range): BP systolic 90–109; BP diastolic 64–76; PULSE 92–135; RESP 16–20; TEMP 36.6–37.4; O2SAT 96–99
[2022-02-21] MEDS: ACETAMINOPHEN 325 MG TABLET 650 MG PO (04:45)
[2022-02-21] MEDS: AMIODARONE 360 MG/D5W 200 ML 360 MG/200 ML BAG 16.67 MG IV CONT ×2 (05:01→17:01)
[2022-02-21] MEDS: SACUBITRIL/VALSARTAN 24-26 MG TABLET 1 TAB PO ×2 (08:59→20:28)
[2022-02-21] MEDS: ASPIRIN 81 MG CHEWABLE TABLET PO (08:59)
[2022-02-21] MEDS: ROSUVASTATIN 10 MG TABLET 20 MG PO (08:59)
[2022-02-21] MEDS: TICAGRELOR 90 MG TABLET PO (08:59)
--- NOTE | 2022-02-21 11:39 | PM.PNCARD ---
Progress Note: A&P Assessment and Plan (1) ST elevation (STEMI) myocardial infarction: Qualifiers: Involved coronary artery: unspecified coronary artery Qualified Code(s): I21.3 - ST elevation (STEMI) myocardial infarction of unspecified site Code(s): I21.3 - ST elevation (STEMI) myocardial infarction of unspecified site Status: Acute Plan Assessment: Late pattern ant wall OR, S/p PCI to LAD with GARETH AF with RVR started on amiodarone infusion last night LV systolic dysfunction EF 30% Plan: D/C amiodarone infusion tonight and styart amiodarone 400 m daily in AM DAPT with ASA and Ticagrelor Statin Simvastatin 40 mg daily Entresto 24-26 mg BID Increase Coreg to 6.25 mg BID Start Apixaban 5 mg BID Change Ticagrelor to plavix 75 mg daily (load with 300 mg in AM) Subjective Date/time seen: 02/21/22 11:39 AF with RVR overnight No chest pain or SOB Tele: Af 110 to 120 bpm Wanted to go home Review of Systems Review of Systems: all negative except for stated in subjective findings Exam Narrative: General: Elderly patient in no acute distress HEENT: Pupils equal and reactive, sclerae is clear Neck: Supple, Respiratory: Clear to auscultation bilaterally Cardiac: S1-S2 is normal, regular rate and rhythm Abdomen: Soft, nontender, nondistended, normoactive bowel sounds Extremities: Right groin site with no evidence of ecchymosis or hematoma, palpable pedal pulses Neuro: Patient is awake, alert, oriented, nonfocal Skin: Warm and dry Psych: Normal affect Objective Data Vital Signs Vital Signs: Vital Signs - 24 hr 02/20/22 12:00 02/20/22 12:00 02/20/22 12:00 Temperature 36.9 C Pulse Rate 110 H 89 89 Respiratory Rate 21 H 23 H Blood Pressure 99/58 L Pulse Oximetry 93 95 Oxygen Delivery Room Air 02/20/22 14:00 02/20/22 14:00 02/20/22 15:21 Temperature Pulse Rate 95 95 137 H Respiratory Rate 23 H Blood Pressure 115/65 Pulse Oximetry 96 Oxygen Delivery 02/20/22 16:00 02/20/22 16:00 02/20/22 16:00 Temperature 36.6 C Pulse Rate 98 101 H 101 H Respiratory Rate 18 15 Blood Pressure 106/78 Pulse Oximetry 93 96 Oxygen Delivery Room Air 02/20/22 17:59 02/20/22 18:00 02/20/22 19:16 Temperature 36.6 C 36.6 C Pulse Rate 141 H 133 H 129 H Respiratory Rate 28 H 16 Blood Pressure 91/64 L 108/60 Pulse Oximetry 98 97 Oxygen Delivery 02/20/22 20:18 02/20/22 20:19 02/20/22 23:17 Temperature Pulse Rate 143 H 140 H 139 H Respiratory Rate Blood Pressure 90/56 L Pulse Oximetry Oxygen Delivery 02/20/22 23:26 02/21/22 00:00 02/20/22 20:00 Temperature 37.4 C Pulse Rate 128 H 97 131 H Respiratory Rate 18 Blood Pressure 88/54 L 90/64 L Pulse Oximetry 97 Oxygen Delivery 02/20/22 20:00 02/20/22 22:00 02/21/22 00:00 Temperature Pulse Rate 136 H 128 H 123 H Respiratory Rate 20 Blood Pressure Pulse Oximetry 97 Oxygen Delivery Room Air 02/21/22 00:00 02/21/22 02:00 02/21/22 04:00 Temperature Pulse Rate 123 H 116 H 135 H Respiratory Rate 20 Blood Pressure Pulse Oximetry 96 Oxygen Delivery Room Air 02/21/22 04:00 02/21/22 04:00 02/21/22 05:01 Temperature 36.6 C Pulse Rate 118 H 131 H 122 H Respiratory Rate 18 20 Blood Pressure 99/69 L 99/69 L Pulse Oximetry 97 97 Oxygen Delivery Room Air 02/21/22 06:00 02/21/22 08:00 02/21/22 08:00 Temperature 36.6 C Pulse Rate 118 H 132 H Respiratory Rate 20 Blood Pressure 109/76 Pulse Oximetry 98 Oxygen Delivery Room Air 02/21/22 08:00 02/21/22 10:00 Temperature Pulse Rate 105 H 111 H Respiratory Rate Blood Pressure Pulse Oximetry Oxygen Delivery Intake/Output Intake/Output: Intake & Output 02/18/22 02/19/22 02/20/22 02/21/22 23:59 23:59 23:59 23:59 Intake Total 2150 0 Output Total 975 400 Balance 1175 -400 Meds/Results Medications: Active Medications
[2022-02-21] MEDS: carvediloL 3.125 MG TABLET PO (20:28)
[2022-02-21] MEDS: APIXABAN 5 MG TABLET PO (20:29)
[2022-02-22] VITALS (19 sets, daily range): BP systolic 89–111; BP diastolic 45–84; PULSE 69–126; RESP 16–22; TEMP 36.6–37.6; O2SAT 94–98
[2022-02-22] MEDS: carvediloL 3.125 MG TABLET PO ×2 (08:48→21:23)
[2022-02-22] MEDS: SACUBITRIL/VALSARTAN 24-26 MG TABLET 1 TAB PO (08:48)
[2022-02-22] MEDS: ROSUVASTATIN 10 MG TABLET 20 MG PO (08:48)
[2022-02-22] MEDS: APIXABAN 5 MG TABLET PO ×2 (08:48→21:23)
[2022-02-22] MEDS: ASPIRIN 81 MG CHEWABLE TABLET PO (08:53)
[2022-02-22] MEDS: AMIODARONE HCL 200 MG TABLET PO ×2 (09:04→21:23)
--- NOTE | 2022-02-22 12:22 | PM.PNCARD ---
Progress Note: A&P Assessment and Plan (1) ST elevation (STEMI) myocardial infarction: Qualifiers: Involved coronary artery: unspecified coronary artery Qualified Code(s): I21.3 - ST elevation (STEMI) myocardial infarction of unspecified site Code(s): I21.3 - ST elevation (STEMI) myocardial infarction of unspecified site Status: Acute Plan Assessment: Late pattern ant wall [place], S/p PCI to LAD with GARETH AF with RVR started on amiodarone infusion last night LV systolic dysfunction EF 30% Plan: Start amiodarone 400 m daily DAPT with ASA and plavix Statin Entresto 24-26 mg BID Coreg to 3.125 mg BID Apixaban 5 mg BID Plavix 300 mg today then 75 mfg daily Patient can be discharged from cardiac standpoint Subjective Date/time seen: 02/22/22 12:22 no acute events wants to go home tele AF rate 100 bpm Review of Systems Review of Systems: All systems reviewed & are unremarkable except as noted in HPI and below Exam Narrative: General: Elderly patient in no acute distress HEENT: Pupils equal and reactive, sclerae is clear Neck: Supple, Respiratory: Clear to auscultation bilaterally Cardiac: S1-S2 is normal, regular rate and rhythm Abdomen: Soft, nontender, nondistended, normoactive bowel sounds Extremities: Right groin site with no evidence of ecchymosis or hematoma, palpable pedal pulses Neuro: Patient is awake, alert, oriented, nonfocal Skin: Warm and dry Psych: Normal affect Objective Data Vital Signs Vital Signs: Vital Signs - 24 hr 02/21/22 14:00 02/21/22 16:00 02/21/22 17:01 Temperature 36.8 C Pulse Rate 112 H 115 H 115 H Respiratory Rate 20 Blood Pressure 94/65 L Pulse Oximetry 99 Oxygen Delivery 02/21/22 17:01 02/21/22 16:00 02/21/22 16:00 Temperature Pulse Rate 115 H 114 H Respiratory Rate Blood Pressure Pulse Oximetry Oxygen Delivery Room Air 02/21/22 18:00 02/21/22 20:28 02/21/22 20:00 Temperature 37.0 C Pulse Rate 92 116 H 108 H Respiratory Rate 16 Blood Pressure 96/68 L Pulse Oximetry 99 Oxygen Delivery 02/21/22 20:00 02/21/22 22:00 02/21/22 20:00 Temperature Pulse Rate 125 H 116 H Respiratory Rate Blood Pressure Pulse Oximetry Oxygen Delivery Room Air 02/21/22 23:28 02/22/22 00:00 02/22/22 00:00 Temperature 36.8 C Pulse Rate 102 H 102 H 122 H Respiratory Rate 18 Blood Pressure 91/69 L 91/69 L Pulse Oximetry 98 Oxygen Delivery 02/22/22 00:00 02/22/22 02:00 02/22/22 04:00 Temperature 37.6 C Pulse Rate 116 H 93 Respiratory Rate 20 Blood Pressure 103/56 L Pulse Oximetry 96 Oxygen Delivery Room Air 02/22/22 04:00 02/22/22 04:00 02/22/22 06:00 Temperature Pulse Rate 126 H 100 Respiratory Rate Blood Pressure Pulse Oximetry Oxygen Delivery Room Air 02/22/22 08:00 02/22/22 08:48 02/22/22 08:49 Temperature 37.3 C Pulse Rate 69 115 H Respiratory Rate 16 Blood Pressure 93/68 L 111/84 Pulse Oximetry 97 Oxygen Delivery 02/22/22 09:04 02/22/22 08:00 02/22/22 10:00 Temperature Pulse Rate 115 H 108 H 96 Respiratory Rate Blood Pressure Pulse Oximetry Oxygen Delivery Intake/Output Intake/Output: Intake & Output 02/19/22 02/20/22 02/21/22 02/22/22 23:59 23:59 23:59 23:59 Intake Total 2150 670 Output Total 975 1000 850 Balance 9290 -515 -805 Meds/Results Medications: Active Medications Generic Name Dose Route Start Last Admin Trade Name Freq PRN Reason Stop Dose Admin Acetaminophen 650 mg 02/21/22 01:19 02/21/22 04:45 Acetaminophen 325 Mg Tablet PO 650 mg Q4H PRN Administration Fever Amiodarone HCl 200 mg 02/20/22 21:00 02/22/22 09:04 Amiodarone Hcl 200 Mg Tablet PO 200 mg Q12HR JESSICA Administration Apixaban 5 mg 02/21/22 21:00 02/22/22 08:48 Apixaban 5 Mg Tablet PO 5 mg Q12HR JESSICA Administration Aspirin 81 mg
[2022-02-22] MEDS: CLOPIDOGREL BISULFATE 300 MG TABLET PO (14:29)
--- NOTE | 2022-02-22 19:56 | ECG_ITS ---
Measurements Intervals [place] Rate: 77 P: 57 MO: 162 QRS: 260 QRSD: 143 T: 120 QT: 434 QTc: 492 Interpretive Statements SINUS RHYTHM ATRIAL AND VENTRICULAR PREMATURE COMPLEXES RIGHT AXIS DEVIATION RIGHT BUNDLE BRANCH BLOCK ANTEROSEPTAL INFARCT, AGE INDETERMINATE ANTEROLATERAL ST ELEVATION INFARCTION- ACUTE OR RECENT ABNORMAL ECG Electronically Signed On 02-22-2022 21:15:30 CDT by Andrey Hightower D.O.
[2022-02-23] VITALS (13 sets, daily range): BP systolic 75–100; BP diastolic 44–65; PULSE 74–83; RESP 16–24; TEMP 36.4–37; O2SAT 93–98
[2022-02-23] MEDS: ROSUVASTATIN 10 MG TABLET 20 MG PO (08:50)
[2022-02-23] MEDS: CLOPIDOGREL BISULFATE 75 MG TABLET PO (08:50)
[2022-02-23] MEDS: SACUBITRIL/VALSARTAN 24-26 MG TABLET 1 TAB PO ×2 (08:50→21:10)
[2022-02-23] MEDS: APIXABAN 5 MG TABLET PO ×2 (08:50→21:10)
[2022-02-23] MEDS: carvediloL 3.125 MG TABLET PO (08:50)
[2022-02-23] MEDS: AMIODARONE HCL 200 MG TABLET PO ×2 (10:36→21:10)
[2022-02-23] MEDS: ASPIRIN 81 MG CHEWABLE TABLET PO (10:36)
--- NOTE | 2022-02-23 15:47 | PC.NURSE ---
Notified Dr. Roe that patient's blood pressure was 75/44, patient is asymptomatic. Doctor is okay with blood pressure running low, do not call unless the blood pressure is less than 70 systolic or if the patient is asymptomatic with a low pressure.
--- NOTE | 2022-02-23 16:04 | PM.PNCARD ---
Progress Note: A&P Assessment and Plan (1) ST elevation (STEMI) myocardial infarction: Qualifiers: Involved coronary artery: unspecified coronary artery Qualified Code(s): I21.3 - ST elevation (STEMI) myocardial infarction of unspecified site Code(s): I21.3 - ST elevation (STEMI) myocardial infarction of unspecified site Status: Acute Plan Assessment: Late pattern ant wall [place], S/p PCI to LAD with GARETH Paroxysmal AF with RVR now in SR LV systolic dysfunction EF 30% Plan: Start amiodarone 400 m daily DAPT with ASA and Plavix Statin Entresto 24-26 mg BID Coreg to 3.125 mg BID Apixaban 5 mg BID Plavix 75 mg daily Subjective Date/time seen: 02/23/22 16:04 no acute events BP is lower but asymptomatic Review of Systems Review of Systems: All systems reviewed & are unremarkable except as noted in HPI and below Exam Narrative: General: Elderly patient in no acute distress HEENT: Pupils equal and reactive, sclerae is clear Neck: Supple, Respiratory: Clear to auscultation bilaterally Cardiac: S1-S2 is normal, regular rate and rhythm Abdomen: Soft, nontender, nondistended, normoactive bowel sounds Extremities: Right groin site with no evidence of ecchymosis or hematoma, palpable pedal pulses Neuro: Patient is awake, alert, oriented, nonfocal Skin: Warm and dry Psych: Normal affect Objective Data Vital Signs Vital Signs: Vital Signs - 24 hr 02/22/22 18:00 02/22/22 19:52 02/22/22 20:00 Temperature 36.6 C Pulse Rate 91 89 Respiratory Rate 22 H Blood Pressure 100/45 L Pulse Oximetry 94 Oxygen Delivery Room Air 02/22/22 21:14 02/22/22 21:23 02/22/22 21:23 Temperature Pulse Rate 82 82 Respiratory Rate Blood Pressure 99/64 L Pulse Oximetry Oxygen Delivery 02/22/22 20:00 02/22/22 21:58 02/22/22 23:45 Temperature 36.6 C Pulse Rate 88 89 82 Respiratory Rate 20 Blood Pressure 89/57 L Pulse Oximetry 97 Oxygen Delivery 02/22/22 23:50 02/23/22 00:00 02/23/22 02:00 Temperature Pulse Rate 76 83 Respiratory Rate Blood Pressure Pulse Oximetry Oxygen Delivery Room Air 02/23/22 03:31 02/23/22 04:00 02/23/22 04:00 Temperature 36.4 C Pulse Rate 78 81 Respiratory Rate 18 Blood Pressure 92/54 L Pulse Oximetry 95 Oxygen Delivery Room Air 02/23/22 06:00 02/23/22 08:00 02/23/22 08:00 Temperature 36.9 C Pulse Rate 79 76 Respiratory Rate 24 H Blood Pressure 97/65 L Pulse Oximetry 96 Oxygen Delivery Room Air 02/23/22 08:00 02/23/22 10:00 02/23/22 11:57 Temperature 36.4 C Pulse Rate 78 81 76 Respiratory Rate 16 Blood Pressure 75/44 L Pulse Oximetry 95 Oxygen Delivery 02/23/22 12:00 02/23/22 12:00 Temperature Pulse Rate 74 Respiratory Rate Blood Pressure Pulse Oximetry Oxygen Delivery Room Air Intake/Output Intake/Output: Intake & Output 02/20/22 02/21/22 02/22/22 02/23/22 23:59 23:59 23:59 23:59 Intake Total 2150 569 369 6256 Output Total 975 1000 850 900 Balance 0020 -723 -052 [facility] Meds/Results Medications: Active Medications Generic Name Dose Route Start Last Admin Trade Name Freq PRN Reason Stop Dose Admin Acetaminophen 650 mg 02/21/22 01:19 02/21/22 04:45 Acetaminophen 325 Mg Tablet PO 650 mg Q4H PRN Administration Fever Amiodarone HCl 200 mg 02/20/22 21:00 02/23/22 10:36 Amiodarone Hcl 200 Mg Tablet PO 200 mg Q12HR JESSICA Administration Apixaban 5 mg 02/21/22 21:00 02/23/22 08:50 Apixaban 5 Mg Tablet PO 5 mg Q12HR JESSICA Administration Aspirin 81 mg 02/20/22 08:00 02/23/22 10:36 Aspirin 81 Mg Chewable Tablet PO 81 mg DAILY@0800 JESSICA Administration Carvedilol 6.25 mg 02/21/22 21:00 Carvedilol 6.25 Mg Tablet PO Q12HR JESSICA Carvedilol 3.125 mg 02/21/22 21:00 02/23/22 08:50 Carvedilol 3.125 Mg Tablet PO 3.125 mg Q12HR JESSICA Administration Cl
[2022-02-24] VITALS (8 sets, daily range): BP systolic 96–112; BP diastolic 57–61; PULSE 68–88; RESP 16–17; TEMP 36.5–36.6; O2SAT 92–94
[2022-02-24] MEDS: SACUBITRIL/VALSARTAN 24-26 MG TABLET 1 TAB PO (09:30)
[2022-02-24] MEDS: ROSUVASTATIN 10 MG TABLET 20 MG PO (09:30)
[2022-02-24] MEDS: carvediloL 3.125 MG TABLET PO (09:31)
[2022-02-24] MEDS: CLOPIDOGREL BISULFATE 75 MG TABLET PO (09:31)
[2022-02-24] MEDS: AMIODARONE HCL 200 MG TABLET PO (09:32)
[2022-02-24] MEDS: APIXABAN 5 MG TABLET PO (09:32)
[2022-02-24 10:54] LABS: Hematocrit 35.4 % (42.0-52.0); Hemoglobin 11.9 g/dL (14.0-18.0); Mean Corpuscular HGB Conc 33.6 g/dl (32-36); Mean Corpuscular Hemoglobin 31.2 pg (26-34); Mean Corpuscular Volume 92.9 fl (80-100); Mean Platelet Volume 8.9 fl (7.4-10.4); Platelet Count Result 379 k/mm3 (150-375); Red Blood Count 3.81 M/mm3 (4.6-6.20); Red Cell Distribution Width 13.4 % (11.5-14.5)
--- NOTE | 2022-02-24 10:54 | PM.DS ---
DS: Admitting Diagnosis Discharge Date 02/24/2022 Admitting Diagnosis chest pain DS: Discharge Diagnosis Discharge Diagnosis (1) ST elevation (STEMI) myocardial infarction: Qualifiers: Involved coronary artery: unspecified coronary artery Qualified Code(s): I21.3 - ST elevation (STEMI) myocardial infarction of unspecified site Code(s): I21.3 - ST elevation (STEMI) myocardial infarction of unspecified site Status: Acute Assessment and Plan: S/p PCI on 02/19/2022. Stable in this regard. No recurrence of chest pain. Continue DAPT with ASA, Plavix Continue statin Cardiac rehab referral (2) Cardiomyopathy: Code(s): I42.9 - Cardiomyopathy, unspecified Status: Acute Assessment and Plan: Late presentation STEMI, ischemic cardiomyopathy EF 30-35% Medical therapy with Entresto, coreg. Further optimization of GDMT as outpatient LifeVest recommended and ordered No evidence of CHF (3) Atrial fibrillation: Code(s): I48.91 - Unspecified atrial fibrillation Status: Acute Assessment and Plan: AF RVR post PCI. Placed on amiodarone and apixaban. Continue p.o. amiodarone Continue apixaban Will be on triple therapy with ASA, plavix, and apixaban for 1 month then will d/c ASA Consider outpatient vehicle monitor technician to assess AF recurrence/burden and need for ongoing a/c and antiarrhythmic therapy. DS: Summary Hospital Course Reason for hospitalization: chest pain, STEMI Hospital Course: Presented to the ED from urgent care with complaint of epigastric and chest pain that had been persisting for ~18 hours at the time of presentation. His EKG was compatible with an anterior wall IA. therefore, he was taken to the cardiac label printing machinist for coronary angiogram. He was found to have 100% occlusion of the proximal LAD. This was treated with placement of 2 drug-eluting stents in the LAD. Echocardiogram obtained post intervention revealed severely reduced left ventricular systolic function with an EF of 30-35%. He was placed on dual anti-platelet therapy, statin, as well as guideline recommended medical treatment for his cardiomyopathy. Time Spent with Patient Time attestation: Total time spent providing and/or coordinating discharge services: 63 minutes Exam Const: General: comfortable, no acute distress, alert and awake Orientation/consciousness: patient oriented x3 HENMT: Head: normal to inspection Eyes: General: appearance normal, both eyes and all related structures Pupils: Equal, round and reactive pupils present Neck: Neck: normal visual inspection, supple and no JVD Carotids: normal carotid upstroke Resp: Effort & Inspection: normal respiratory effort Auscultation: clear to auscultation bilaterally Cardio: Rate: regular rate Rhythm: regular rhythm Heart sounds: S1 normal heart sound present, S2 normal heart sound present and no murmurs GI: Auscultation: normal bowel sounds Skin: General skin exam: normal color Other: Right groin arterial insertion site free from bleeding, hematoma, or bruit. Neuro: General: patient oriented x3 Cranial nerves: Yes Equal, round and reactive pupils present Extrem: General: normal to inspection Psych: Appearance: grossly normal Mental Status: mental status grossly normal DS: Data Data Completed and Pending Labs on day of discharge: Labs from last 24 hours 02/24/22 02/24/22 10:48 10:48 WBC Pending RBC Pending Hgb Pending Hct Pending MCV Pending MCH Pending MCHC Pending RDW Pending Plt Count Pending MPV Pending Sodium Pending Potassium Pending Chloride Pending Carbon Dioxide Pending Anion Gap Pending BUN Pending Creatinine Pending Estim Creat Clear Calc Pending Estimated GFR Pending Glucose Pending Calcium Pending Discharge Plan Discharge Attending physician on discharge: Virgil Dumont Discharging Clinician: Noy Cooper
[2022-02-24 11:04] LABS: Anion Gap 1 mmol/L (8-16); Blood Urea Nitrogen 28 mg/dL (9-20); Calcium 8.4 mg/dL (8.4-10.2); Carbon Dioxide 30 mmol/L (22-30); Chloride 101 mmol/L (98-107); Estimated CRCL calculation 42 ml/min; Estimated Glomerular Filt Rate > 60; Glucose 120 mg/dL (65-110); Potassium 4.1 mmol/L (3.4-5.0); Sodium 132 mmol/L (137-145)
[2022-02-24] MEDS: ASPIRIN 81 MG CHEWABLE TABLET PO (11:39)
--- NOTE | 2022-02-24 17:44 | PC.NURSE ---
discharge note states patient on amiodarone and different dose of coreg. unable to reach Noy Cooper. Dr. Odell transportation clerk. Reviewed medications and discharge summary with Dr. Odell and orders received for amiodarone 200 mg q12h and coreg 3.125 q 12 hr. Attempted to notify patient's Tami at [phone] to let patient know of changes but unable to reach at this time and patient mailbox is not set up to take messages. Will try to call again soon.
--- NOTE | 2022-02-24 19:18 | PC.NURSE ---
notified of medication changes. She verbalizes understanding of 1/2 dose of coreg bid and to get amiodarone and take twice a day.
== END 2022-02-24 16:55 | disposition home or self-care (01) | DRG 247 ==
LOC: ANHED 15:41 → ANHSURGERY 15:42 → ANHICU 21:44 → ANH3MEDSUR 02-24 07:36 → ANHED 02-25 11:14 → ANHSURGERY 02-25 11:14 → ANH3MEDSUR 02-25 11:15 → ANHICU 02-25 11:15 → ANHIMU 02-25 11:15
PROVIDERS: Internal Medicine; Admitting Provider Specialist; Emergency Provider Emergency Medicine; PCP Internal Medicine; Visit Provider Nurse Practitioner
PROC: 027035Z Dilation of Coronary Artery, One Artery with Two Drug-eluting Intraluminal Devices, Percutaneous Approach (ICD-10-PCS; CPT 93454; principal; 2022-02-19 15:30)
PROC: 027035Z Dilation of Coronary Artery, One Artery with Two Drug-eluting Intraluminal Devices, Percutaneous Approach (ICD-10-PCS; 2022-02-19 15:30)
DX: I21.02 ST elevation (STEMI) myocardial infarction involving left anterior descending coronary artery (principal); I48.0 Paroxysmal atrial fibrillation; I25.5 Ischemic cardiomyopathy; I45.10 Unspecified right bundle-branch block; I48.91 Unspecified atrial fibrillation; E78.5 Hyperlipidemia, unspecified; M19.90 Unspecified osteoarthritis, unspecified site; F41.9 Anxiety disorder, unspecified; N40.0 Benign prostatic hyperplasia without lower urinary tract symptoms; K21.9 Gastro-esophageal reflux disease without esophagitis; E53.8 Deficiency of other specified B group vitamins; Z87.891 Personal history of nicotine dependence
CPT/HCPCS: 36415; 71045; 76705; 80048; 80053; 80061; 80074; 83735; 84484; 85025; 85027; 85610; 85730; 86850; 86900; 86901; 93005; 93306; 93454; 99215; 99291; A9270; C1725; C1769; C1874; C1887; C1894; C9606; G0463; J0282; J7030

== ENCOUNTER 2022-06-01 08:30 | Outpatient (RCR) | payer OTHER, SELFPAY | END 2022-06-01 11:30 | disposition home or self-care (01) | LOC: ANHCPREHAB 08:30 | PROVIDERS: PCP Internal Medicine; Visit Provider Nurse Practitioner Adult Health | DX: Z95.5 Presence of coronary angioplasty implant and graft (principal) | CPT/HCPCS: 93798 ==

== ENCOUNTER 2022-07-23 08:36 | Outpatient (CLI) | payer OTHER, SELFPAY ==
[2022-07-23 09:11] LABS: Alanine Aminotransferase 39 U/L (6-50); Albumin Level 4.4 g/dL (3.5-5.1); Alkaline Phosphatase 63 U/L (38-126); Anion Gap 9 mmol/L (8-16); Aspartate Amino Transferase 54 U/L (17-59); Blood Urea Nitrogen 15 mg/dL (9-20); Calcium 9.5 mg/dL (8.4-10.2); Carbon Dioxide 25 mmol/L (22-30); Chloride 104 mmol/L (98-107); Cholesterol 198 mg/dL (0-200); Estimated Glomerular Filt Rate 52; Glucose 111 mg/dL (65-110); HDL Direct 35 mg/dL; Potassium 3.8 mmol/L (3.4-5.0); Sodium 138 mmol/L (137-145); Triglycerides 171 mg/dL (<150)
[2022-07-23 09:22] LABS: LDL Cholesterol Direct 118 mg/dL
[2022-07-23 09:37] LABS: Vitamin D 25 Hydroxy 70.9 ng/mL
== END 2022-07-23 08:37 | disposition home or self-care (01) ==
LOC: ANHLAB 08:39
PROVIDERS: PCP Internal Medicine; Visit Provider Internal Medicine
DX: E55.9 Vitamin D deficiency, unspecified (principal); E53.8 Deficiency of other specified B group vitamins; E78.5 Hyperlipidemia, unspecified
CPT/HCPCS: 36415; 80053; 80061; 82306; 82607

== ENCOUNTER 2022-10-04 12:58 | Observation (INO) | payer OTHER, SELFPAY ==
[2022-10-04] VITALS (13 sets, daily range): BP systolic 82–124; BP diastolic 55–73; PULSE 58–74; RESP 14–20; TEMP 36.1–36.6; O2SAT 96–99; BMI 23.4
--- NOTE | ~2022-10-04 | XR_ITS ---
XR chest 1V portable DATE: 10/04/2022 13:22 INDICATION: Chest pain TECHNIQUE: Portable upright AP chest on October 04, 2022 at 1319 hours COMPARISON: 02/19/2022 portable AP chest FINDINGS: Bilateral hyperinflation. No pulmonary infiltrate or consolidation, pleural effusion or pul monary vascular congestion or pneumothorax is detected. Heart size is within normal limits. No hilar or mediastinal enlargement. Moderately prominent hiatal hernia. Osteopenia. IMPRESSION: No active pulmonary disease Reviewed, dictated and finalized at location A. ALTERATIONS TAILOR IMPRESSION: No active pulmonary disease
--- NOTE | 2022-10-04 13:01 | ECG_ITS ---
Measurements Intervals [place] Rate: 72 P: 72 [place]: 176 QRS: 260 QRSD: 143 T: 101 QT: 447 QTc: 491 Interpretive Statements SINUS RHYTHM MARKED RIGHT AXIS DEVIATION [QRS AXIS > 100] RIGHT BUNDLE BRANCH BLOCK [120+ ms QRS DURATION, UPRIGHT V1, 40+ ms S IN I/aVL/V4/V5/V6] ANTEROSEPTAL MYOCARDIAL INFARCTION , OF INDETERMINATE AGE [40+ ms Q WAVE IN V1-V4] NONSPECIFIC T-WAVE COMPARED TO ECG 02/22/2022 19:05:38 CHANGES CONSISTENT WITH AN ACUTE ANTERIOR MYOCARDIAL INFARCTION HAVE RESOLVED. Electronically Signed On 10-04-2022 18:41:23 [employer]GETABLE SCULLION by La Wolef M.D.
[2022-10-04] MEDS: ASPIRIN 81 MG CHEWABLE TABLET 324 MG PO (13:09)
--- NOTE | 2022-10-04 13:10 | ED.CHESTPAIN ---
HPI - Chest Pain General Chief Complaint: Chest Pain Stated Complaint: CHEST PAIN Time Seen by Provider: 10/04/22 13:00 History of Present Illness HPI narrative: This is an 87-year-old male with past medical history of STEMI 7 months ago, who returned to the emergency department complaining of sharp, left-sided, non-radiating chest pain rated 7/10. He states this is similar to the pain felt with his previous IN. It is aggravated by physical exertion and alleviated with rest. He denies recent trauma, nausea, vomiting, diaphoresis or difficulty breathing. Related Data Home Medications Medication Instructions Recorded Confirmed cholecalciferol (vitamin D3) 50 50 mcg PO DAILY 03/28/20 09/07/22 mcg (2,000 unit) tablet multivitamin,[id number]-[id number]-[id number] 1 tablet PO DAILY 03/28/20 09/07/22 (Complete Multivitamin tablet) tamsulosin 0.4 mg capsule (Flomax) 0.4 mg PO HS 03/28/20 09/07/22 amiodarone 200 mg tablet 200 mg PO DAILY 05/21/22 09/07/22 Allergies Allergy/AdvReac Type Severity Reaction Status Date / Time No Known Allergies Allergy Verified 09/07/22 10:47 Review of Systems Review of Systems: CONSTITUTIONAL: Denies fever, chills, or sweats. EYES: Denies visual changes, redness, or discharge. CARDIOVASCULAR: Left-sided chest pain denies palpitations, or edema. RESPIRATORY: Denies cough or dyspnea. GASTROINTESTINAL: Denies abdominal pain, nausea, vomiting, or diarrhea. GENITOURINARY: Denies dysuria or hematuria. SKIN: Denies rash or itching. MUSCULOSKELETAL: Denies back pain, joint pain, or myalgia. NEUROLOGIC: Denies headache, numbness, dizziness, or weakness. PSYCHIATRIC: Denies anxiety or depression. [facility] Past Medical History Medical History Anxiety Arthritis Atrial fibrillation Benign prostatic hyperplasia History of urinary retention. Status post year UroLift in March 2020. Cardiomyopathy Dyslipidemia Gastroesophageal reflux disease ST elevation (STEMI) myocardial infarction Vitamin B12 deficiency Vitamin D deficiency, unspecified Surgical History Surgical History History of colonoscopy (04/2011) Internal hemorrhoids and diverticulosis. Per Dr. Flynn. History of prostate surgery (03/2020) Status post UroLift per Dr. Arciniega. Status post LASIK surgery of both eyes Family History Family History Father Malignant neoplasm of prostate Carcinoma of colon Patient's father is Mother Family history of malignant neoplasm of breast in first degree relative Family history of malignant neoplasm Patient's mother is Sibling Patient's sister is in good health Patient's brother is in good health Social History Social History Social History: Surrogate decision maker: Shelby Holguin, . Code status: Do not resuscitate. Smoking packs per day: 3 Smoking cigarettes per day: 60.0 Years smoked: 11 Smoking pack-years: 33.00 Smoking status: Former smoker Tobacco type: cigarettes Second hand tobacco smoke exposure: No Smoking end date: 08/23/1963 Alcohol intake: current Drinks per week: 1 Alcohol use details: BEER Substance use: never Substance use type: does not use Lack of Transportation: No Lack of Food: Never True Current Housing: I Have Housing Concerned About Future Housing: No Difficulty Paying Gas/Electric Bills: No Difficulty Paying for Meds: No Currently Unemployed: No Education: High School Diploma/GED Difficulty w/ Childcare or Family Care: No Living arrangements: with family Additional living arrangements comments: The patient lives in [place] with his . Additional occupation/education comments: Retired but still very active. Gender identity (if verbalized by the patient
[2022-10-04 13:19] LABS: Basophils Percent Auto 0.2 % (0.2-1.2); Eosinophils Absolute Auto 0.1 K/mm3 (0-0.3); Eosinophils Percent Auto 0.7 % (0-4.4); Hematocrit 39.7 % (42.0-52.0); Hemoglobin 13.5 g/dL (14.0-18.0); Immature Granulocyte Absolute 0.03 K/mm3 (0.00-0.031); Immature Granulocyte Percent A 0.3 % (0-0.5); Lymphocytes Absolute Auto 1.94 K/mm3 (0.9-3.2); Lymphocytes Percent Auto 22.3 % (18.3-44.2); Mean Corpuscular Hemoglobin 32.9 pg (26-34); Mean Corpuscular Volume 96.8 fl (80-100); Mean Platelet Volume 8.9 fl (7.4-10.4); Monocytes Absolute Auto 0.6 K/mm3 (0.1-0.6); Monocytes Percent Auto 6.7 % (2.6-8.5); Neutrophils Absolute Auto 6.1 K/mm3 (1.3-6.7); Neutrophils Percent Auto 69.8 % (45.5-73.1); Platelet Count Result 292 k/mm3 (150-375); Red Cell Distribution Width 13.2 % (11.5-14.5); White Blood Count 8.7 K/mm3 (4.5-10.0)
[2022-10-04 13:21] LABS: Alanine Aminotransferase 25 U/L (6-50); Albumin Level 4.1 g/dL (3.5-5.1); Alkaline Phosphatase 56 U/L (38-126); Anion Gap 8 mmol/L (8-16); Aspartate Amino Transferase 42 U/L (17-59); Bilirubin,Total 0.7 mg/dL (0.2-1.3); Blood Urea Nitrogen 15 mg/dL (9-20); Calcium 9.1 mg/dL (8.4-10.2); Carbon Dioxide 24 mmol/L (22-30); Chloride 106 mmol/L (98-107); Estimated CRCL calculation 39 ml/min; Estimated Glomerular Filt Rate 57; Glucose 131 mg/dL (65-110); Lipase 76 U/L (23-300); Potassium 3.7 mmol/L (3.4-5.0); Sodium 138 mmol/L (137-145)
[2022-10-04 13:29] LABS: INR 1.7; Prothrombin Time 19.4 Seconds (11.1-14.7)
[2022-10-04 13:30] LABS: Partial Thromboplastin Time 38.5 SECONDS (22.3-36.8)
[2022-10-04 13:35] LABS: Troponin I 0.025 ng/mL (0.000-0.034)
--- NOTE | 2022-10-04 14:19 | ECG_ITS ---
Measurements Intervals [place] Rate: 63 P: 40 [place]: 175 QRS: 210 QRSD: 164 T: 118 QT: 493 QTc: 507 Interpretive Statements SINUS RHYTHM MARKED RIGHT AXIS DEVIATION [QRS AXIS > 100] RIGHT BUNDLE BRANCH BLOCK [120+ ms QRS DURATION, UPRIGHT V1, 40+ ms S IN I/aVL/V4/V5/V6] PREVIOUS ANTERIOR WALL GA ABNORMAL ECG COMPARED TO ECG 10/04/2022 13:05:06 NO SIGNIFICANT CHANGES Electronically Signed On 10-05-2022 12:02:17 SANDBLAST OR SHOTBLAST EQUIPMENT TENDER by Virgil Dumont M.D.
[2022-10-04] MEDS: SODIUM CHLORIDE 0.9% IV 1,000 ML 999 ML IV CONT (14:26)
--- NOTE | 2022-10-04 14:45 | PM.IMHP ---
H&P: HPI History of Present Illness Date/Time: 10/04/22 14:45 Chief Complaint: Chest pain. Narrative: This is an 87-year-old male with coronary artery disease, ischemic cardiomyopathy, paroxysmal atrial fibrillation, and benign prostatic hyperplasia who presented to the emergency department from home for evaluation of chest pain. He had a late presentation anterior wall STEMI in January 2022 which was treated with PCI/stent x2 to a 100% occluded proximal LAD. He was started on dual antiplatelet therapy, statin, and guideline recommended medical treatment for ischemic cardiomyopathy (EF was 30 to 35%). He developed post PCI atrial fibrillation and he has been maintained on amiodarone and apixaban since that time. According to the patient he has not had any issues with chest pain or exertional shortness of breath since that time. Today he was busy doing chores around the house (installing new smoke detectors and replacing the flush valve in a toilet) when he developed sudden onset of nonradiating, sharp, left-sided chest pain which he rates 7/10. It is worse with physical exertion and was alleviated with rest. The pain is somewhat similar to that he had prior to his TN last year but not as severe. He denies shortness of breath, nausea, vomiting, sweats, syncope, near syncope, sensations of racing heart, palpitations, pleuritic pain, lower extremity edema, and calf pain. EKG on arrival today showed a sinus rhythm with right axis deviation right bundle-branch block with Q-waves in the anterior septal leads. His initial troponin was 0.025 and the remainder of his labs are stable upon review of his EMR. Given his cardiac history he is being admitted overnight to rule out acute coronary syndrome. Currently he has no chest pain or concerns aside from the fact that he wants to be discharged as soon as possible in the morning because he has plans tomorrow afternoon. Review of Systems Review of Systems: Twelve systems were reviewed and are negative except for as per HPI. [facility] Past Medical History Medical History (Updated 10/04/22 @ 19:11 by Dahlia Ahn PA-C) Anxiety Arthritis Benign prostatic hyperplasia History of urinary retention. Status post year UroLift in March 2020. Chronic anticoagulation Dyslipidemia Gastroesophageal reflux disease Ischemic cardiomyopathy EF 30 to 35% in January 2022. Paroxysmal atrial fibrillation ST elevation myocardial infarction (STEMI) of anterior wall (01/2022) Vitamin B12 deficiency Vitamin D deficiency, unspecified Surgical History Surgical History (Updated 10/04/22 @ 19:11 by Dahlia Ahn PA-C) History of cardiac catheterization (01/2022) History of colonoscopy (04/2011) Internal hemorrhoids and diverticulosis. Per Dr. Flynn. History of coronary artery stent placement (01/2022) History of prostate surgery (03/2020) Status post UroLift per Dr. Arciniega. Status post LASIK surgery of both eyes Family History Family History Father Malignant neoplasm of prostate Carcinoma of colon Patient's father is Mother Family history of malignant neoplasm of breast in first degree relative Family history of malignant neoplasm Patient's mother is Sibling Patient's sister is in good health Patient's brother is in good health Social History Social History (Updated 10/04/22 @ 19:12 by Dahlia Ahn PA-C) Social History: Surrogate decision maker: Shelby Holguin, . Code status: Do not resuscitate. Smoking packs per day: 3 Smoking cigarettes per day: 60.0 Years smoked: 11 Smoking pack-years: 33.00 Smoking status: Former smoker Tobacco type: cigarettes Second hand tobacco smoke exposure: No Smoking end date: 08/23/1963 Alcohol intake: current Drinks per week: 1 Substance use: never Substance use type: does not use Lack of Transportation: No Lack of Food: Never
[2022-10-04 15:01] LABS: SARS-CoV-2 RNA PCR Negative
[2022-10-04 17:12] LABS: Troponin I 0.025 ng/mL (0.000-0.034)
--- NOTE | 2022-10-04 18:08 | PC.NURSE ---
This patient, Bradley Holguin, was admitted to IMU Room 205-02. Patient/family oriented to hospital policies and general routines including ID bracelet, bed and alarms, visiting hours, pain management, procedures, bathroom and other care routines, personal items, smoking policy, room service/diet, and visiting hours. Information on how to activate the Rapid Response Team has been discussed. Patient/Family are encouraged to report perceived risks to care and to ask questions if they do not understand what they are told or what they should do.
[2022-10-04 19:32] LABS: Troponin I 0.025 ng/mL (0.000-0.034)
[2022-10-04] MEDS: carvediloL 6.25 MG TABLET PO (20:23)
[2022-10-04] MEDS: SACUBITRIL/VALSARTAN 24-26 MG TABLET 1 TAB PO (20:23)
[2022-10-04] MEDS: APIXABAN 5 MG TABLET PO (20:23)
[2022-10-04] MEDS: TAMSULOSIN HCL 0.4 MG CAPSULE PO (20:23)
[2022-10-05] VITALS (10 sets, daily range): BP systolic 93–109; BP diastolic 51–64; PULSE 58–79; RESP 16–20; TEMP 36.4–36.7; O2SAT 96–98
[2022-10-05 04:10] LABS: Basophils Percent Auto 0.3 % (0.2-1.2); Eosinophils Absolute Auto 0.1 K/mm3 (0-0.3); Eosinophils Percent Auto 1.7 % (0-4.4); Immature Granulocyte Absolute 0.02 K/mm3 (0.00-0.031); Immature Granulocyte Percent A 0.3 % (0-0.5); Lymphocytes Absolute Auto 1.68 K/mm3 (0.9-3.2); Mean Corpuscular HGB Conc 34.3 g/dl (32-36); Mean Corpuscular Hemoglobin 33.5 pg (26-34); Mean Corpuscular Volume 97.8 fl (80-100); Mean Platelet Volume 9.2 fl (7.4-10.4); Monocytes Absolute Auto 0.4 K/mm3 (0.1-0.6); Monocytes Percent Auto 7.2 % (2.6-8.5); Neutrophils Absolute Auto 3.8 K/mm3 (1.3-6.7); Neutrophils Percent Auto 62.5 % (45.5-73.1); Platelet Count Result 208 k/mm3 (150-375); Red Blood Count 3.58 M/mm3 (4.6-6.20); Red Cell Distribution Width 13.3 % (11.5-14.5)
[2022-10-05 04:33] LABS: Anion Gap 5 mmol/L (8-16); Blood Urea Nitrogen 12 mg/dL (9-20); Calcium 8.3 mg/dL (8.4-10.2); Carbon Dioxide 24 mmol/L (22-30); Chloride 109 mmol/L (98-107); Estimated CRCL calculation 46 ml/min; Estimated Glomerular Filt Rate > 60; Glucose 88 mg/dL (65-110); Magnesium 1.5 mg/dL (1.6-2.3); Potassium 3.2 mmol/L (3.4-5.0); Sodium 138 mmol/L (137-145)
--- NOTE | 2022-10-05 09:02 | PM.CNCAR ---
Assessment and Plan Assessment and plan (1) Ischemic cardiomyopathy: Code(s): I25.5 - Ischemic cardiomyopathy Status: Acute (2) Chest pain: Code(s): R07.9 - Chest pain, unspecified Status: Acute Plan This is an 87-year-old man as described in my note above well known to have ischemic heart disease he has an ischemic cardiomyopathy following anterior wall infarction in 2021 because of late presentation. He is doing very well clinically he is well compensated. He was admitted to the hospital yesterday with chest pain that appears to be noncardiac chest pain there is no evidence of acute coronary syndrome. He is on a very good medical regimen as described in the notes and in my opinion he should be allowed to be discharged today I do not expect to conduct any ischemia evaluation given the noncardiac nature of the symptoms and he has appropriate follow-up scheduled with me in the office. Because of his advanced age she has selected DNR status which is appropriate. He is unfortunately also grieving the of 2 of his children within the last 6 months with certainly could be playing a role in the current symptoms. Virgli Dumont MD [facility] History of Present Illness History of Present Illness Consult date/time: 10/05/22 09:02 Reason For Visit: Chest Pain Narrative: This is an 87-year-old man I am seeing at the request of the hospitalist this morning because of chest pain. This gentleman is known to me with a history of coronary artery disease having presented in the summer of 2021 with acute anterior wall myocardial infarction. He presented to [facility] at that time with some chest pain and was brought to the cardiac catheterization lab where he underwent angiographically successful revascularization of his occluded LAD using 2 drug-eluting stents with a good result. He had no other coronary disease angiographically at that time and he clinically has done well although he did require significant medication for LV dysfunction as his presentation was late any is known to have a lower ejection fraction following the event he sees me in the office periodically and has had no ischemic symptoms nor any symptoms of decompensated heart failure. 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 He 1st he thought he had some gas in his stomach but when it persisted he decided to come in and be evaluated. He was seen in the emergency room and admitted to the IMU where he has not had any recurrence of the symptoms. His troponin levels following admission were negative x3 sets his laboratory data otherwise is unconcerning and he is feeling well this morning and denies any complaints. He did been become rather emotional and tearful when he shared with me that earlier this month his son of a malignancy and his daughter of a malignancy in the raul of last year. The patient is on guideline directed medical therapy for his ischemic cardiomyopathy he is also being maintained on a low dose of amiodarone and systemic anticoagulation because of atrial fibrillation which complicated his original presentation. Review of Systems Constitutional: Constitutional: Reports no additional constitutional complaints Eyes: Eyes: Reports no additional eye complaints ENT: Reports system reviewed and no additional complaints, except as documented Cardiovascular: Cardiovascular: Reports as per HPI Respiratory: Respiratory: Reports no additional respiratory complaints Gastrointestinal: Gastrointestinal: Reports no additional gastrointestinal complaints Musculoskeletal: Musculoskeletal: Reports back pain Integumentary/Breasts: Skin/Breast: Reports system reviewed and no additional complaints, except as docu Neurologic: Reports system reviewed and no additional complaints, except as documented Endocrine: Endocrine:
[2022-10-05] MEDS: POTASSIUM CHLORIDE 20 MEQ PACKET (FOR LIQUID) 40 MEQ PO (09:32)
[2022-10-05] MEDS: CHOLECALCIFEROL 1,000 UNITS TABLET 2000 UNITS PO (09:32)
[2022-10-05] MEDS: AMIODARONE HCL 200 MG TABLET PO (09:32)
[2022-10-05] MEDS: ASPIRIN 81 MG CHEWABLE TABLET PO (09:32)
[2022-10-05] MEDS: PANTOPRAZOLE 40 MG TABLET PO (09:33)
[2022-10-05] MEDS: THERAPEUTIC MULTIVITAMINS/MINERALS TAB (*BKC) 1 TABLET PO (09:33)
[2022-10-05] MEDS: SACUBITRIL/VALSARTAN 24-26 MG TABLET 1 TAB PO (09:33)
[2022-10-05] MEDS: APIXABAN 5 MG TABLET PO (09:33)
[2022-10-05] MEDS: DUTASTERIDE 0.5 MG CAPSULE PO (09:33)
[2022-10-05] MEDS: carvediloL 6.25 MG TABLET PO (09:33)
[2022-10-05] MEDS: CLOPIDOGREL BISULFATE 75 MG TABLET PO (09:33)
[2022-10-05] MEDS: MAGNESIUM SULF 2 GM/WATER 50ML 2 GM/50 ML BAG IVPB (09:34)
[2022-10-05] MEDS: ROSUVASTATIN 10 MG TABLET PO (09:34)
[2022-10-05] MEDS: SACCHAROMYCES BOULARDII 250 MG CAPSULE PO (09:34)
[2022-10-05] MEDS: FENOFIBRATE NANOCRYSTALLIZED 145 MG TABLET PO (09:39)
--- NOTE | 2022-10-05 11:34 | PM.DS ---
DS: Admitting Diagnosis Discharge Date 10/05/22 Admitting Diagnosis chest pain DS: Discharge Diagnosis Discharge Diagnosis (1) Chest pain: Code(s): R07.9 - Chest pain, unspecified Status: Acute (2) Coronary artery disease: Code(s): I25.10 - Atherosclerotic heart disease of [place] coronary artery without angina pectoris Status: Acute (3) Ischemic cardiomyopathy: Code(s): I25.5 - Ischemic cardiomyopathy Status: Acute (4) Paroxysmal atrial fibrillation: Code(s): I48.0 - Paroxysmal atrial fibrillation Status: Acute (5) Chronic anticoagulation: Code(s): Z79.01 - jail (current) use of anticoagulants Status: Acute Plan The patient presented to the emergency department for evaluation of sudden onset of sharp, nonradiating pain in the left anterior chest, worse with exertion and improved with rest. Labs, imaging, EKG, and all reports were personally reviewed. EKG does not show any acute ST segment changes in his initial troponin was detectable but still well within normal limits. He is without chest pain at this time. Given his history he is being admitted overnight to rule out acute coronary syndrome. He has no reproducible tenderness to palpation of the chest wall or in his abdomen making musculoskeletal in GI etiologies less likely. Pulmonary embolism is also less likely as he is not tachycardic or short of breath and he is on apixaban of which he states compliance. Trend troponins. Continue statin, beta-[place], and antiplatelet therapy. Cardiology has been consulted and their input is greatly appreciated. His blood pressure is at the lower end of normal but that looks chronic and is likely related to the medications he is taking for his ischemic cardiomyopathy. He appears euvolemic on exam and has no symptoms of low blood pressure. He is currently in a sinus rhythm. Continue apixaban for stroke prophylaxis. The rest of his home medications will be reviewed and resumed as appropriate. 10/05/22 Cardiology consulted and troponin trended. Cardiology discharge patient from services I did not believe the patient's chest pain was cardiac related. Troponin within normal limits. Patient's potassium and magnesium found to be slightly low and these were replenish . Labs are rechecked and were within normal ranges. Patient cleared to discharge to follow-up with primary care. DS: Summary Hospital Course Reason for hospitalization: Chest pain Hospital Course: A 87-year-old male with history of coronary artery disease, ischemic cardiomyopathy, paroxysmal atrial fibrillation and BPH presents to the ED for evaluation of chest pain. Patient has a history of anterior wall STEMI in January of 2022 and at this time he had PCI/stent x2. patient started on dual anti-platelet therapy and statin. Patient has not had any cardiac issues since his [place] until he developed chest pain on 10/04/2022. Patient did not experience any lower extremity edema, calf pain, heart palpitations, feeling of a racing heart, near-syncope, syncope, nausea, vomiting sweating, and shortness of breath. patient was admitted to rule out acute coronary syndrome. Cardiology consulted. Patient's troponin were trended and all within normal limits. Cardiology saw patient and did not believe patient's chest pain was cardiac related and he was released from their services. Patient found to have some electrolyte abnormalities and a replenished as needed. Labs were checked and were within normal limits. Patient being discharged home. See above for more detailed information about patient's hospital stay. Time Spent with Patient Time attestation: Total time spent providing and/or coordinating discharge services: Exam Narrative: GENERAL: Comfortable, no acute distress HENMT: moist mucous membranes EYES: EOM intact b/l NECK: no lymphadenopathy RESPIRATORY: clear to auscultation CARDIO: RRR GI: soft, nontender, bowel sound
[2022-10-05 14:03] LABS: Magnesium 1.9 mg/dL (1.6-2.3); Potassium 3.7 mmol/L (3.4-5.0)
== END 2022-10-05 15:05 | disposition home or self-care (01) ==
LOC: ANHED 15:44 → ANHIMU 16:59
PROVIDERS: Internal Medicine Critical Care Medicine; Admitting Provider Student in an Organized Health Care Education/Training Program; Emergency Provider Preventive Medicine Aerospace Medicine; PCP Internal Medicine; Visit Provider Chiropractor
DX: R07.9 Chest pain, unspecified (principal); I25.10 Atherosclerotic heart disease of native coronary artery without angina pectoris; Z95.5 Presence of coronary angioplasty implant and graft; I25.5 Ischemic cardiomyopathy; I48.0 Paroxysmal atrial fibrillation; I25.2 Old myocardial infarction; F41.9 Anxiety disorder, unspecified; M19.90 Unspecified osteoarthritis, unspecified site; Z20.822 Contact with and (suspected) exposure to COVID-19; R73.9 Hyperglycemia, unspecified; N40.0 Benign prostatic hyperplasia without lower urinary tract symptoms; E78.5 Hyperlipidemia, unspecified; R94.31 Abnormal electrocardiogram [ECG] [EKG]; Z66 Do not resuscitate; K21.9 Gastro-esophageal reflux disease without esophagitis; E53.8 Deficiency of other specified B group vitamins; E55.9 Vitamin D deficiency, unspecified; Z79.01 Long term (current) use of anticoagulants; Z79.02 Long term (current) use of antithrombotics/antiplatelets; Z87.891 Personal history of nicotine dependence; Z79.899 Other long term (current) drug therapy
CPT/HCPCS: 36415; 71045; 80048; 80053; 83690; 83735; 84132; 84484; 85025; 85610; 85730; 93005; 96361; 96374; 99285; A9270; G0378; J3475; J7030; U0003; U0005

== ENCOUNTER 2023-02-03 08:00 | Outpatient (CLI) | payer OTHER, SELFPAY ==
[2023-02-04 09:41] LABS: Alanine Aminotransferase 28 U/L (6-50); Albumin Level 3.9 g/dL (3.5-5.1); Alkaline Phosphatase 44 U/L (38-126); Anion Gap 3 mmol/L (8-16); Aspartate Amino Transferase 40 U/L (17-59); Bilirubin,Total 0.6 mg/dL (0.2-1.3); Blood Urea Nitrogen 20 mg/dL (9-20); Calcium 8.9 mg/dL (8.4-10.2); Carbon Dioxide 30 mmol/L (22-30); Chloride 105 mmol/L (98-107); Cholesterol 125 mg/dL (0-200); Estimated Glomerular Filt Rate 44; Glucose 107 mg/dL (65-110); HDL Direct 30 mg/dL; LDL Cholesterol Direct 75 mg/dL; Potassium 4.2 mmol/L (3.4-5.0); Sodium 138 mmol/L (137-145); Triglycerides 139 mg/dL (<150); Vitamin D 25 Hydroxy 70.3 ng/mL
== END 2023-02-03 08:01 | disposition home or self-care (01) ==
LOC: ANHLAB 19:07
PROVIDERS: PCP Family Medicine; Visit Provider Nurse Practitioner Family
DX: E78.5 Hyperlipidemia, unspecified (principal); E55.9 Vitamin D deficiency, unspecified
CPT/HCPCS: 36415; 80053; 80061; 82306

== ENCOUNTER 2023-04-17 09:47 | Emergency (ER) | payer OTHER, SELFPAY ==
--- NOTE | ~2023-04-17 | CT_ITS ---
EXAMINATION: CT brain wo con DATE: 04/17/2023 11:51 INDICATION: Anticoagulated patient post fall . Radiculopathy. TECHNIQUE: Computed tomography (CT) of the head was performed without intravenous contrast. Sagittal and coronal reconstructions were performed. The mA was adjusted according to patient size. Iterative reconstruction technique was employed. The dose-length product was 605.33 mGy-cm. COMPARISON: head CT dated 09/25/20 FINDINGS: No acute intracranial hemorrhage, acute infarction or abnormal extra axial fluid collection. Small ol d lacunar infarct at the left lentiform nucleus. There is mild scattered white matter hypoattenuation consistent with chronic small vessel ischemic disease. Symmetric prominence of the sulci and ventric les consistent with mild to moderate age-appropriate diffuse cerebral volume loss. Ventricles are nor mal and symmetric. No mass/mass effect. Intracranial calcified cerebral atherosclerosis is noted. Christina nges of bilateral intraocular lens replacement. The orbits, paranasal sinuses and mastoid air cells a re normal. IMPRESSION: 1. Small old lacunar infarct at the left lentiform nucleus. No acute intracranial process. 2. Age-related changes including mild to moderate diffuse volume loss and mild scattered white matter hypoattenuation consistent with chronic small vessel ischemic disease. Reviewed, dictated and finalized at location A. IMPRESSION: 1. Small old lacunar infarct at the left lentiform nucleus. No acute intracrani al process. 2. Age-related changes including mild to moderate diffuse volume loss and mild scattered white matter hypoattenuation consistent with chronic small vessel isc hemic disease.
--- NOTE | ~2023-04-17 | XR_ITS ---
EXAMINATION: XR shoulder RT min 2V DATE: 04/17/2023 11:44 INDICATION: Anterior right shoulder pain TECHNIQUE: AP internally and externally rotated, AP oblique externally rotated and transscapular Y vi ews of the right shoulder were obtained. COMPARISON: None FINDINGS: Normal alignment. No fracture.Mild glenohumeral and moderate acromioclavicular osteoarthritis. Visua lized portions of the lungs are clear. Soft tissues are unremarkable. IMPRESSION: Mild right glenohumeral and moderate acromioclavicular osteoarthritis. Reviewed, dictated and finalized at location A.
--- NOTE | ~2023-04-17 | CT_ITS ---
EXAMINATION: CT cervical spine wo con DATE: 04/17/2023 11:51 INDICATION: Neck pain and radiculopathy post fall TECHNIQUE: Computed tomography (CT) of the cervical spine was performed without intravenous contrast. Automated exposure control and iterative reconstruction technique were employed. The dose-length pro duct was 284.13 mGy-cm. COMPARISON: None FINDINGS: 2 mm retrolisthesis C3 on C4. Alignment is otherwise normal. Vertebral body heights are normal. No fr acture. Moderate atlantoaxial osteoarthritis with some calcified pannus surrounding the dens. Severe disc height loss with sclerotic endplate changes at C3-C4. Moderate disc height loss at C4-C5 but wit h fusion across the bilateral uncovertebral joints and across portions of the disc space. Additional moderate osteoarthritis at C5-C6. Mild disc height loss at C2-C3 and C7-T1. Atherosclerotic and calci fications at the bilateral carotid bulbs. Cervical soft tissues are otherwise unremarkable. 405 mm ri ght apical nodule. The following disc levels are specifically discussed: C2-C3: Disc is mildly bulging. There is mild bilateral uncovertebral joint osteoarthritis. There is m ild to moderate right and severe left facet joint osteoarthritis. There is mild left neural foraminal stenosis. There is mild central canal stenosis. C3-C4: Posterior disc osteophyte complex. There is severe bilateral, right greater than left uncovert ebral joint osteoarthritis. There is mild bilateral facet joint osteoarthritis. There is moderate rig ht and mild to moderate left neural foraminal stenosis. There is mild to moderate right-sided predomi nant central canal stenosis. C4-C5: Small posterior disc osteophyte complex. There is fusion across the bilateral uncovertebral karan ints. There is mild left facet joint osteoarthritis. There is mild left and moderate right neural for aminal stenosis. There is mild central canal stenosis. C5-C6: Posterior disc osteophyte complex is present. There is moderate to severe left and severe righ t uncovertebral joint osteoarthritis. There is altered left and moderate right facet joint osteoarthr itis. There is mild left and moderate right neural foraminal stenosis. There is mild to moderate cent ral canal stenosis. C6-C7: Disc is bulging. There is mild bilateral uncovertebral joint osteoarthritis. There is moderate bilateral facet joint osteoarthritis. There is moderate bilateral neural foraminal stenosis. There i s mild central canal stenosis. C7-T1: Disc is mildly bulging. There is minimal bilateral uncovertebral joint osteoarthritis. There i s mild to moderate bilateral facet joint osteoarthritis. There is mild left neural foraminal stenosis . There is no central canal stenosis. IMPRESSION: 1. Severe cervical spondylosis. No acute osseous abnormality. Reviewed, dictated and finalized at location A.
[2023-04-17 09:53] VITALS: BP 101/66; PULSE 60; RESP 16; TEMP 36.6; O2SAT 100
[2023-04-17 10:52] VITALS: BP 99/61; PULSE 58; RESP 18; O2SAT 100
--- NOTE | 2023-04-17 11:27 | ECG_ITS ---
Measurements Intervals [place] Rate: 56 P: 38 SD: 174 QRS: -79 QRSD: 145 T: 89 QT: 496 QTc: 483 Interpretive Statements SINUS BRADYCARDIA RIGHT BUNDLE BRANCH BLOCK [120+ ms QRS DURATION, UPRIGHT V1, 40+ ms S IN I/aVL/V4/V5/V6] LEFT ANTERIOR FASCICULAR BLOCK [QRS AXIS <= -45, QR IN I, RS IN II] SEPTAL MYOCARDIAL INFARCTION , OF INDETERMINATE AGE [40+ ms Q WAVE IN V1/V2] MODERATE T-WAVE ABNORMALITY, CONSIDER LATERAL ISCHEMIA [-0.1+ mV T WAVE IN I/aVL/V5/V6] COMPARED TO ECG 10/04/2022 14:19:41 SINUS BRADYCARDIA NOW PRESENT Electronically Signed On 04-18-2023 11:11:09 CDT by Gaye Martinez MD
--- NOTE | 2023-04-17 11:27 | ED.EXTPRO ---
HPI - Extremity Problem General Chief complaint: Extremity Problem,Nontraumatic Stated complaint: shoulder pain, stiff neck Time Seen by Provider: 04/17/23 10:28 History of Present Illness HPI Narrative: 87-year-old male with history of ischemic cardiomyopathy, paroxysmal atrial fibrillation, CAD, s/p stent placement reports for evaluation for neck pain and right shoulder pain x4 days. Patient states he woke up 4 days ago with neck pain and right shoulder pain with numbness and tingling down his right arm to his elbow. He does report a couple of recent falls including one 1 to 2 weeks ago where he was carrying a heavy box of [employer] down the stairs backwards, thought he was at the last step but still had 1 more step to go, began walking and fell off the last step. States he landed on his back and when asked if he hit his head he states probably . He denies LOC. He also reports a fall couple weeks ago where he was working on a [employer], tripped and fell on the ground on his back. Again, he states he probably hit his head but denies LOC. He denies any other pain to his extremities, back pain, chest pain or shortness of breath, headache, difficulty walking or talking, abdominal pain, nausea or vomiting, fevers. He normally ambulates without assistance from a walker or cane. Related Data Home Medications Medication Instructions Recorded Confirmed cholecalciferol (vitamin D3) 50 50 mcg PO DAILY 03/28/20 02/02/23 mcg (2,000 unit) tablet multivitamin,nw-wgjr-kgmamanl 1 tablet PO DAILY 03/28/20 02/02/23 (Complete Multivitamin tablet) tamsulosin 0.4 mg capsule (Flomax) 0.4 mg PO HS 03/28/20 02/02/23 amiodarone 200 mg tablet 200 mg PO DAILY 05/21/22 02/02/23 Allergies Allergy/AdvReac Type Severity Reaction Status Date / Time No Known Allergies Allergy Verified 04/17/23 09:59 Review of Systems Review of Systems: CONSTITUTIONAL: Denies fever, chills EYES: Denies visual changes, redness, or discharge. ENT: Denies rhinorrhea, congestion, sore throat, or otalgia. CARDIOVASCULAR: Denies chest pain, palpitations, or edema. RESPIRATORY: Denies cough or dyspnea. GASTROINTESTINAL: Denies abdominal pain, nausea, vomiting, or diarrhea. GENITOURINARY: Denies dysuria or hematuria. SKIN: Denies rash or itching. MUSCULOSKELETAL: See HPI NEUROLOGIC: Denies headache, numbness, dizziness, or weakness. PSYCHIATRIC: Denies anxiety or depression. [facility] Past Medical History Medical History Anxiety Arthritis Benign prostatic hyperplasia History of urinary retention. Status post year UroLift in March 2020. Chronic anticoagulation Dyslipidemia Gastroesophageal reflux disease Ischemic cardiomyopathy EF 30 to 35% in January 2022. Paroxysmal atrial fibrillation ST elevation myocardial infarction (STEMI) of anterior wall (01/2022) Vitamin B12 deficiency Vitamin D deficiency, unspecified Surgical History Surgical History History of cardiac catheterization (01/2022) History of colonoscopy (04/2011) Internal hemorrhoids and diverticulosis. Per Dr. Flynn. History of coronary artery stent placement (01/2022) History of prostate surgery (03/2020) Status post UroLift per Dr. Arciniega. Status post LASIK surgery of both eyes Family History Family History Father Malignant neoplasm of prostate Carcinoma of colon Patient's father is Mother Family history of malignant neoplasm of breast in first degree relative Family history of malignant neoplasm Patient's mother is Sibling Patient's sister is in good health Patient's brother is in good health Social History Social History Social History: Surrogate decision maker: Shelby Holguin, . Code status: Do not resuscitate.
[2023-04-17] MEDS: ACETAMINOPHEN 500 MG TABLET 1000 MG PO (11:55)
[2023-04-17] MEDS: LIDOCAINE 5% PATCH 1 PATCH TRANSDERM (11:56)
[2023-04-17 12:01] VITALS: BP 116/70; PULSE 50; O2SAT 100
[2023-04-17 12:45] VITALS: O2SAT 99
[2023-04-17 12:46] VITALS: BP 102/66; O2SAT 100
[2023-04-17 13:21] VITALS: BP 106/62; PULSE 52; RESP 14; O2SAT 99
== END 2023-04-17 13:22 | disposition home or self-care (01) ==
PROVIDERS: Emergency Provider Physician Assistant; PCP Family Medicine
DX: M54.12 Radiculopathy, cervical region (principal); M25.511 Pain in right shoulder; I48.0 Paroxysmal atrial fibrillation; I25.10 Atherosclerotic heart disease of native coronary artery without angina pectoris; E78.5 Hyperlipidemia, unspecified; I25.2 Old myocardial infarction; Z87.891 Personal history of nicotine dependence
CPT/HCPCS: 70450; 72125; 73030; 93005; 99284; A9270

== ENCOUNTER 2023-07-30 23:42 | Emergency (ER) | payer OTHER, SELFPAY ==
--- NOTE | ~2023-07-30 | XR_ITS ---
EXAMINATION: XR chest 2V DATE: 07/31/2023 00:28 INDICATION: Chest pain TECHNIQUE: PA and lateral views of the chest are obtained. COMPARISON: 10/04/2022 FINDINGS: The lungs are free of acute opacities. No pleural effusion or pneumothorax. The cardiomedia stinal silhouette is normal. There is moderate thoracic spondylosis. A moderate-sized sliding hiatal hernia is noted. IMPRESSION: 1. No acute cardiopulmonary abnormality. Reviewed, dictated and finalized at location F. MASTERS MANAGER
--- NOTE | 2023-07-30 23:46 | ECG_ITS ---
Measurements Intervals [place] Rate: 60 P: 60 OR: 172 QRS: 269 QRSD: 145 T: 76 QT: 468 QTc: 469 Interpretive Statements SINUS RHYTHM RIGHT BUNDLE BRANCH BLOCK ANTEROSEPTAL MYOCARDIAL INFARCTION , OF INDETERMINATE AGE Electronically Signed On 08-01-2023 10:17:39 [employer] MORTISING MACHINE OPERATOR by Tacos Hedrick M.D.
[2023-07-30 23:52] VITALS: BP 129/73; PULSE 58; RESP 20; TEMP 36.3; O2SAT 99
[2023-07-31] VITALS (21 sets, daily range): BP systolic 97–112; BP diastolic 58–76; PULSE 51–70; RESP 11–21; TEMP 36.7; O2SAT 97–100
[2023-07-31 00:09] LABS: Basophils Percent Auto 0.4 % (0.2-1.2); Eosinophils Absolute Auto 0.1 K/mm3 (0-0.3); Hematocrit 43.8 % (42.0-52.0); Hemoglobin 14.3 g/dL (14.0-18.0); Immature Granulocyte Absolute 0.01 K/mm3 (0.00-0.031); Immature Granulocyte Percent A 0.2 % (0-0.5); Lymphocytes Percent Auto 26.1 % (18.3-44.2); Mean Corpuscular HGB Conc 32.6 g/dl (32-36); Mean Corpuscular Hemoglobin 31.2 pg (26-34); Mean Corpuscular Volume 95.4 fl (80-100); Mean Platelet Volume 8.9 fl (7.4-10.4); Monocytes Absolute Auto 0.4 K/mm3 (0.1-0.6); Monocytes Percent Auto 8.5 % (2.6-8.5); Neutrophils Absolute Auto 2.9 K/mm3 (1.3-6.7); Neutrophils Percent Auto 62.8 % (45.5-73.1); Platelet Count Result 262 k/mm3 (150-375); Red Blood Count 4.59 M/mm3 (4.6-6.20); Red Cell Distribution Width 15.6 % (11.5-14.5); White Blood Count 4.6 K/mm3 (4.5-10.0)
[2023-07-31 00:21] LABS: INR 1.8; Prothrombin Time 22.2 Seconds (11.1-14.7)
[2023-07-31 00:22] LABS: Partial Thromboplastin Time 41.9 SECONDS (22.3-36.8)
[2023-07-31 00:56] LABS: Alanine Aminotransferase 29 U/L (6-50); Albumin Level 4.2 g/dL (3.5-5.1); Alkaline Phosphatase 65 U/L (38-126); Anion Gap 9 mmol/L (8-16); Aspartate Amino Transferase 45 U/L (17-59); Bilirubin,Total 0.7 mg/dL (0.2-1.3); Blood Urea Nitrogen 23 mg/dL (9-20); Calcium 9.5 mg/dL (8.4-10.2); Carbon Dioxide 24 mmol/L (22-30); Chloride 110 mmol/L (98-107); Estimated CRCL calculation 35 ml/min; Estimated Glomerular Filt Rate 52; Glucose 99 mg/dL (65-110); Lipase 123 U/L (23-300); Potassium 3.7 mmol/L (3.4-5.0); Sodium 143 mmol/L (137-145)
[2023-07-31 01:07] LABS: Troponin I 0.019 ng/mL (0.000-0.034)
--- NOTE | 2023-07-31 02:38 | ECG_ITS ---
Measurements Intervals [place] Rate: 51 P: 18 DC: 177 QRS: -72 QRSD: 165 T: 78 QT: 534 QTc: 496 Interpretive Statements SINUS BRADYCARDIA LEFTWARD ACCESS RIGHT BUNDLE BRANCH BLOCK SEPTAL MYOCARDIAL INFARCTION , OF INDETERMINATE AGE Electronically Signed On 08-01-2023 10:18:07 BOARD MEMBER by Tacos Hedrick M.D.
[2023-07-31 03:36] LABS: Troponin I 0.013 ng/mL (0.000-0.034)
--- NOTE | 2023-07-31 05:49 | ED.GENADULT ---
HPI - General Adult General Chief complaint: Chest Pain Stated complaint: chest pain Time Seen by Provider: 07/31/23 04:08 History of Present Illness HPI narrative: This is an 88-year-old male presenting ED with chief complaint of chest pain. The patient was moving a mini Fridge by himself when he started developing sharp pain across his chest. It is nonradiating, 2/10 in intensity and improving. It is worse with movement and palpation. Patient denies fever chills shortness of breath nausea vomiting diaphoresis or lower extremity edema. Related Data Home Medications Medication Instructions Recorded Confirmed cholecalciferol (vitamin D3) 50 50 mcg PO DAILY 03/28/20 04/21/23 mcg (2,000 unit) tablet multivitamin,[id number] 1 tablet PO DAILY 03/28/20 04/21/23 (Complete Multivitamin tablet) tamsulosin 0.4 mg capsule (Flomax) 0.4 mg PO HS 03/28/20 04/21/23 amiodarone 200 mg tablet 200 mg PO DAILY 05/21/22 04/21/23 Allergies Allergy/AdvReac Type Severity Reaction Status Date / Time No Known Allergies Allergy Verified 04/21/23 12:43 [facility] Past Medical History Medical History Anxiety Arthritis Benign prostatic hyperplasia History of urinary retention. Status post year UroLift in March 2020. Chronic anticoagulation Dyslipidemia Gastroesophageal reflux disease Ischemic cardiomyopathy EF 30 to 35% in January 2022. Paroxysmal atrial fibrillation ST elevation myocardial infarction (STEMI) of anterior wall (01/2022) Vitamin B12 deficiency Vitamin D deficiency, unspecified Surgical History Surgical History History of cardiac catheterization (01/2022) History of colonoscopy (04/2011) Internal hemorrhoids and diverticulosis. Per Dr. Flynn. History of coronary artery stent placement (01/2022) History of prostate surgery (03/2020) Status post UroLift per Dr. Arciniega. Status post LASIK surgery of both eyes Family History Family History Father Malignant neoplasm of prostate Carcinoma of colon Patient's father is Mother Family history of malignant neoplasm of breast in first degree relative Family history of malignant neoplasm Patient's mother is Sibling Patient's sister is in good health Patient's brother is in good health Social History Social History Social History: Surrogate decision maker: Shelby Holguin, . Code status: Do not resuscitate. Smoking packs per day: 3 Smoking cigarettes per day: 60.0 Years smoked: 11 Smoking pack-years: 33.00 Smoking status: Former smoker Tobacco type: cigarettes Second hand tobacco smoke exposure: No Smoking end date: 08/23/1963 Alcohol intake: former Drinks per week: 1 Alcohol use details: wine Substance use: never Substance use type: does not use Lack of Transportation: No Lack of Food: Never True Current Housing: I Have Housing Concerned About Future Housing: No Difficulty Paying Gas/Electric Bills: No Difficulty Paying for Meds: YES Currently Unemployed: No Education: Trade/Vocational Certificate Difficulty w/ Childcare or Family Care: No Living arrangements: with family Additional living arrangements comments: The patient lives in [place] with his . They have 3 children, one daughter last year of cancer and son at the beginning of September 2022 of cancer. Additional occupation/education comments: Retired but still very active. Spiritual care concerns: No Exam Narrative: APPEARANCE: No apparent distress. Patient is pleasant and joking during the interview Head: atraumatic. EYES: EOMI, NOSE: Atraumatic NECK: Trachea midline RESPIRATORY: No increased rate of breathing, clear to auscultation CARDIOVASCULAR: R
== END 2023-07-31 06:27 | disposition home or self-care (01) ==
PROVIDERS: Emergency Provider Emergency Medicine; PCP Nurse Practitioner Family
DX: R07.89 Other chest pain (principal); I48.0 Paroxysmal atrial fibrillation; I25.2 Old myocardial infarction; N40.0 Benign prostatic hyperplasia without lower urinary tract symptoms; E78.5 Hyperlipidemia, unspecified; E53.8 Deficiency of other specified B group vitamins; E55.9 Vitamin D deficiency, unspecified; M19.90 Unspecified osteoarthritis, unspecified site; K21.9 Gastro-esophageal reflux disease without esophagitis; Z66 Do not resuscitate; Z95.5 Presence of coronary angioplasty implant and graft; Z87.891 Personal history of nicotine dependence; I45.10 Unspecified right bundle-branch block; R00.1 Bradycardia, unspecified; X50.0XXA Overexertion from strenuous movement or load, initial encounter; Z79.01 Long term (current) use of anticoagulants
CPT/HCPCS: 36415; 71046; 80053; 83690; 84484; 85025; 85610; 85730; 93005; 99284

== ENCOUNTER 2024-02-04 08:53 | Outpatient (CLI) | payer OTHER, SELFPAY ==
--- NOTE | ~2024-02-04 | XR_ITS ---
[id number] 02/04/2024 09:17 Indication: Right knee pain Procedure: 2 views right knee Comparison: No prior studies for comparison. Findings: There is moderate osteoarthritis of the right knee. There is chondrocalcinosis. Osteopenia. No acute fracture or traumatic malalignment. No joint effusion. There is atherosclerosis. 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 Reviewed, dictated and finalized at location B. 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
--- NOTE | ~2024-02-04 | XR_ITS ---
EXAMINATION: XR femur RT min 2V DATE: 02/04/2024 09:17 INDICATION: Right knee pain post fall one week prior TECHNIQUE: AP and lateral views of the right femur were obtained on overlapping proximal and distal i mages COMPARISON: None. FINDINGS: Bone alignment is normal. Chondrocalcinosis at the right knee with tricompartmental osteoarthritis in cluding moderate joint space narrowing the medial compartment and mild joint space narrowing in the l ateral and patellofemoral compartment which could be underestimated on nonweightbearing imaging. No r ight knee joint effusion. Mild osteoarthritis at the right hip. Small amount of enthesopathic ossific ation along the greater trochanter. Phleboliths and surgical clips in the visualized pelvis. Extensiv e vascular calcifications throughout the right thigh and about the right knee. IMPRESSION: 1. No acute osseous abnormalities. 2. 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 Reviewed, dictated and finalized at location A. IMPRESSION: 1. No acute osseous abnormalities. 2. 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
== END 2024-02-04 08:54 | disposition home or self-care (01) ==
LOC: ANHIMG 08:57
PROVIDERS: PCP Nurse Practitioner Family; Visit Provider Nurse Practitioner Family
DX: M16.11 Unilateral primary osteoarthritis, right hip (principal); M17.11 Unilateral primary osteoarthritis, right knee; M11.261 Other chondrocalcinosis, right knee; Z91.81 History of falling; W19.XXXA Unspecified fall, initial encounter
CPT/HCPCS: 73552; 73560

== ENCOUNTER 2024-02-05 08:14 | Outpatient (CLI) | payer OTHER, SELFPAY ==
[2024-02-05 09:41] LABS: Basophils Percent Auto 0.4 % (0.2-1.2); Eosinophils Absolute Auto 0.1 K/mm3 (0-0.3); Eosinophils Percent Auto 2.1 % (0-4.4); Hematocrit 40.9 % (42.0-52.0); Hemoglobin 13.3 g/dL (14.0-18.0); Immature Granulocyte Absolute 0.02 K/mm3 (0.00-0.031); Immature Granulocyte Percent A 0.4 % (0-0.5); Lymphocytes Absolute Auto 1.18 K/mm3 (0.9-3.2); Lymphocytes Percent Auto 22.5 % (18.3-44.2); Mean Corpuscular HGB Conc 32.5 g/dl (32-36); Mean Corpuscular Hemoglobin 31.4 pg (26-34); Mean Corpuscular Volume 96.5 fl (80-100); Mean Platelet Volume 9.4 fl (7.4-10.4); Monocytes Absolute Auto 0.4 K/mm3 (0.1-0.6); Monocytes Percent Auto 7.4 % (2.6-8.5); Neutrophils Absolute Auto 3.5 K/mm3 (1.3-6.7); Neutrophils Percent Auto 67.2 % (45.5-73.1); Platelet Count Result 289 k/mm3 (150-375); Red Blood Count 4.24 M/mm3 (4.6-6.20); White Blood Count 5.2 K/mm3 (4.5-10.0)
[2024-02-05 09:55] LABS: Alanine Aminotransferase 26 U/L (6-50); Albumin Level 3.8 g/dL (3.5-5.1); Alkaline Phosphatase 44 U/L (38-126); Anion Gap 7 mmol/L (4-12); Aspartate Amino Transferase 43 U/L (17-59); Bilirubin,Total 0.9 mg/dL (0.2-1.3); Blood Urea Nitrogen 17 mg/dL (9-20); Calcium 9.2 mg/dL (8.4-10.2); Carbon Dioxide 28 mmol/L (22-30); Chloride 107 mmol/L (98-107); Cholesterol 126 mg/dL (0-200); Estimated Glomerular Filt Rate 57; Glucose 98 mg/dL (65-110); HDL Direct 26 mg/dL; Potassium 3.6 mmol/L (3.4-5.0); Sodium 142 mmol/L (137-145); Triglycerides 161 mg/dL (<150)
[2024-02-05 10:08] LABS: LDL Cholesterol Direct 86 mg/dL
[2024-02-05 10:10] LABS: Vitamin D 25 Hydroxy 71.1 ng/mL
== END 2024-02-05 08:15 | disposition home or self-care (01) ==
LOC: ANHLAB 08:17
PROVIDERS: PCP Nurse Practitioner Family; Visit Provider Nurse Practitioner Family
DX: R33.9 Retention of urine, unspecified (principal); Z13.0 Encounter for screening for diseases of the blood and blood-forming organs and certain disorders involving the immune mechanism; E78.5 Hyperlipidemia, unspecified; I25.10 Atherosclerotic heart disease of native coronary artery without angina pectoris; E55.9 Vitamin D deficiency, unspecified
CPT/HCPCS: 36415; 80053; 80061; 82306; 85025

== ENCOUNTER 2024-07-18 16:42 | Emergency (ER) | payer OTHER, SELFPAY ==
--- NOTE | ~2024-07-18 | US_ITS ---
EXAMINATION: US scrotum doppler DATE: 07/18/2024 18:03 INDICATION: Swollen right testicle x1 week. TECHNIQUE: Grayscale and Doppler ultrasound images of the testes were obtained. COMPARISON: None. FINDINGS: The right testis measures 3.4 x 2.1 x 3.0 cm. The left testis measures 4.1 x 1.9 x 2.6 cm. No testicular mass. Hypervascular right epididymis and testicle. The right epididymal head contains m ultiple simple cysts, with increased vascular flow. 1.0 cm nonsimple hypoechoic focus in the epididym al tail, with peripheral hypervascularity. The left epididymal head contains multiple cysts , with no rmal vascular flow. Right varicocele. Debris-containing moderate right hydrocele. IMPRESSION: Right epididymal and testicle hypervascularity as can be seen with epididymoorchitis. 1.0 cm, nonsimple hypoechoic focus in the epididymal tail, consider abscess in the differential. Complex moderate right hydrocele. Right varicocele. Reviewed, dictated and finalized at location [facility] IMPRESSION: Right epididymal and testicle hypervascularity as can be seen with epididymoorc hitis. 1.0 cm, nonsimple hypoechoic focus in the epididymal tail, consider abscess in the differential. Complex moderate right hydrocele. Right varicocele.
[2024-07-18 16:44] VITALS: BP 121/66; PULSE 63; RESP 16; TEMP 36.4; O2SAT 94
--- NOTE | 2024-07-18 16:59 | ED.MALEGU ---
HPI - Male Genitourinary General Chief complaint: Urogenital-Male <Clara LMontse Linton GRAIN MIXER - Last Filed: 07/18/24 17:01> Stated complaint: R testicle size of an orange <Clarapaty Linton APRN - Last Filed: 07/18/24 17:01> Time Seen by Provider: 07/18/24 16:45 <Clara Linton GRAIN MIXER - Last Filed: 07/18/24 17:01> Focused HPI: Patient is an 89-year-old male who presents to the ER with a swollen testicle. He reports he 1st noticed the swelling approximately 1 week ago. Patient denies any urinary symptoms, Although he does endorse occasional burning with urination. Patient reports he has a history of an elevated PSA. He denies any abdominal pain or recent fevers. Pt reports my testicle is the size of a tennis ball. GENERAL: Well-appearing, well-nourished, and in no acute distress. HEAD: Normocephalic, atraumatic. CHEST: Clear to auscultation. ?No respiratory distress. HEART: Regular rate and rhythm.? NEURO: ?Alert and oriented x3. Patient screened in triage and initial orders placed.? ?Additional care and disposition to be based upon?diagnostic testing and treatment. <Clarapaty Linton APRN - Last Filed: 07/18/24 17:01> Focused HPI: Patient is an 89-year-old male who presents to the ER with a swollen testicle. He reports he 1st noticed the swelling approximately 1 week ago. Patient denies any urinary symptoms, Although he does endorse occasional burning with urination. Patient reports he has a history of an elevated PSA. He denies any abdominal pain or recent fevers. Pt reports my testicle is the size of a tennis ball. GENERAL: Well-appearing, well-nourished, and in no acute distress. HEAD: Normocephalic, atraumatic. CHEST: Clear to auscultation. ?No respiratory distress. HEART: Regular rate and rhythm.? NEURO: ?Alert and oriented x3. Patient screened in triage and initial orders placed.? ?Additional care and disposition to be based upon?diagnostic testing and treatment. <Stefanie Perea PA-C - Last Filed: 07/18/24 23:16> Related Data Home medications: Home Medications Medication Instructions Recorded Confirmed cholecalciferol (vitamin D3) 50 50 mcg PO DAILY 03/28/20 02/04/24 mcg (2,000 unit) tablet multivitamin,au-[id number] 1 tablet PO DAILY 03/28/20 02/04/24 (Complete Multivitamin tablet) amiodarone 200 mg tablet 200 mg PO DAILY 05/21/22 02/04/24 <Clara Linton APRN - Last Filed: 07/18/24 17:01> Allergies/Adverse reactions: Allergies Allergy/AdvReac Type Severity Reaction Status Date / Time No Known Allergies Allergy Verified 02/04/24 07:52 <Clara Linton APRN - Last Filed: 07/18/24 17:01> Review of Systems Review of Systems: CONSTITUTIONAL: Denies fever GASTROINTESTINAL: Denies abdominal pain, nausea, vomiting GENITOURINARY: Denies dysuria or hematuria. <Stefanie Perea PA-C - Last Filed: 07/18/24 23:16> All systems reviewed & are unremarkable except as noted in HPI and below <Stefanie Perea PA-C - Last Filed: 07/18/24 23:16> FOR[facility]LY [facility], [facility] Past Medical History Medical History: Medical History (Updated 07/18/24 @ 22:09 by Stefanie Perea PA-C) Abnormal urinalysis Acute epididymo-orchitis Acute hydrocele Anxiety Arthritis Benign prostatic hyperplasia History of urinary retention. Status post year UroLift in March 2020. Chest pain Dyslipidemia Epididymitis Hyperpigmented skin lesion Ischemic cardiomyopathy EF 30 to 35% in January 2022. OM (onychomycosis) Right hydrocele Skin lesions ST elevation (STEMI) myocardial infarction ST elevation myocardial infarction (STEMI) of anterior wall (01/2022) Urinary retention Urinary retention Urinary tract infection Vitamin B12 deficiency Vitamin D deficiency, unspecified <Clara Linton APRN - Last Filed: 07/18/24 17:01> Surgical History Surgical History: Surgical History History of cardiac catheterization (01/2022) History of colonoscopy (04/2011) Internal hemorrhoids and diverticulosis. Per Dr. Flynn. History of coronary artery stent placement (01/2022) History of prostate surgery (03/2020) Status post UroLift per Dr. Arciniega. Status post LASIK surgery of both eyes <Clara Linton APRN - Last Filed: 07/18/24 17:01> Family History Family History: Family History Father Malignant neoplasm of prostate Carcinoma of colon Patient's father is Mother Family history of malignant neoplasm of breast in first degree relative Family history of malignant neoplasm Patient's mother is Sibling Patient's sister is in good health Patient's brother is in good health <Clara Linton APRN - Last Filed: 07/18/24 17:01> Social History Social History: Social History Social History: Surrogate decision maker: Shelby Holguin, . Code status: Do not resuscitate. Smoking packs per day: 3 Smoking cigarettes per day: 60.0 Years smoked: 11 Smoking pack-years: 33.00 Smoking status: Former smoker Tobacco type: cigarettes Second hand tobacco smoke exposure: No Smoking end date: 08/23/1963 Alcohol intake: former Drinks per week: 1 Alcohol use details: wine Substance use: never Substance use type: does not use Lack of Transportation: No Lack of Food: Never True Current Housing: I Have Housing Concerned About Future Housing: No Difficulty Paying Gas/Electric Bills: No Difficulty Paying for Meds: YES Currently Unemployed: No Education: Trade/Vocational Certificate Difficulty w/ Childcare or Family Care: No Living arrangements: with family Additional living arrangements comments: The patient lives in [place] with his . They have 3 children, one daughter last year of cancer and son at the beginning of September 2022 of cancer. Additional occupation/education comments: Retired but still very active. Spiritual care concerns: No <Clara Linton APRN - Last Filed: 07/18/24 17:01> Exam Narrative: GENERAL: Well-appearing, well-nourished, and in no acute distress. HEAD: Normocephalic, atraumatic. EYES: EOMI. CHEST: Clear to auscultation. No respiratory distress. No wheezes rales or rhonchi HEART: Regular rate and rhythm. No murmur heard. Normal peripheral pulses. ABDOMEN: Soft, nontender, nondistended, normal active bowel sounds. EXTREMITIES: Normal range of motion. No edema. SKIN: Warm, dry, no rash. NEURO: No focal deficits. Alert and oriented x3. PSYCH: Normal mood and affect MALE GENITAL: Right testicle is swollen and tender to palpation with mild overlying scrotal redness <Stefanie Perea PA-C - Last Filed: 07/18/24 23:16> Course Course Emergency Course: Patient updated on his workup and agrees with plan of care <Stefanie Perea PA-C - Last Filed: 07/18/24 23:16> Consultations Consultation #1: Spoke with urology about patient and workup. Agrees with oral antibiotics and follow up outpatient <Stefanie Perea PA-C - Last Filed: 07/18/24 23:16> Date: 07/18/24 <Stefanie Perea PA-C - Last Filed: 07/18/24 23:16> Vital Signs Vital signs: Vital Signs Temperature 97.6 F 07/18/24 16:44 Pulse Rate 63 07/18/24 16:44 Respiratory Rate 16 07/18/24 16:44 Blood Pressure 121/66 07/18/24 16:44 Pulse Oximetry 94 07/18/24 16:44 Temperature 98 F 07/18/24 21:49 Pulse Rate 64 07/18/24 21:49 Respiratory Rate 15 07/18/24 21:49 Blood Pressure 90/59 L 07/18/24 21:49 Pulse Oximetry 100 07/18/24 21:49 <Clara Linton, JASON - Last Filed: 07/18/24 17:01> Vital Signs Temperature 97.6 F 07/18/24 16:44 Pulse Rate 63 07/18/24 16:44 Respiratory Rate 16 07/18/24 16:44 Blood Pressure 121/66 07/18/24 16:44 Pulse Oximetry 94 07/18/24 16:44 Temperature 98 F 07/18/24 21:49 Pulse Rate 64 07/18/24 21:49 Respiratory Rate 15 07/18/24 21:49 Blood Pressure 90/59 L 07/18/24 21:49 Pulse Oximetry 100 07/18/24 21:49 <Stefanie Perea PA-C - Last Filed: 07/18/24 23:16> MDM - Male Genitourinary MDM Narrative Medical decision making narrative: Patient presents to the emergency department for testicular swelling. He is afebrile and nontoxic appearing. Vitals are stable. Cbc without leukocytosis. Metabolic panel with maybe mild elevation in creatinine from his baseline. Patient was hydrated with IV fluids in the ED. urine with evidence of infection. This was sent for culture. Scrotal ultrasound shows findings of epididymo-orchitis. Also a 1 cm non simple hypoechoic focus in the epididymal tail. Spoke with urology about patient and workup. Agrees with oral antibiotics and follow up outpatient. Unfortunately both of the common antibiotics used to treat epididymo-orchitis interact with his home medications. Will start patient on Bactrim and he was warned of this possibility. We spoke about close follow-up with his PCP to monitor for this as well as follow-up with urology. He was given warnings to return to the ER <Stefanie Perea PA-C - Last Filed: 07/18/24 23:16> Differential Diagnosis Differential diagnosis: Likely urinary tract infection, epididymitis and other (Orchitis) <Stefanie Perea PA-C - Last Filed: 07/18/24 23:16> Lab Data Attestation: I reviewed the patient's lab results. <Stefanie Perea PA-C - Last Filed: 07/18/24 23:16> Result diagrams: 07/18/24 21:09 07/18/24 19:02 <Clara Linton APRN - Last Filed: 07/18/24 17:01> Labs: Lab Results 07/18/24 07/18/24 07/18/24 Range/Units 19:02 19:03 20:39 WBC (4.5-10.0) K/mm3 RBC (4.6-6.20) M/mm3 Hgb (14.0-18.0) g/dL Hct (42.0-52.0) % MCV (80-100) fl MCH (26-34) pg MCHC (32-36) g/dl RDW (11.5-14.5) % Plt Count (150-375) k/mm3 MPV (7.4-10.4) fl Immature Gran % (Auto) (0-0.5) % Neut % (Auto) (45.5-73.1) % Lymph % (Auto) (18.3-44.2) % Brooks % (Auto) (2.6-8.5) % Eos % (Auto) (0-4.4) % Baso % (Auto) (0.2-1.2) % Lymph # (Auto) (0.9-3.2) K/mm3 Brooks # (Auto) (0.1-0.6) K/mm3 Eos # (Auto) (0-0.3) K/mm3 Baso # (Auto) (0.0-0.1) K/mm3 Abs Immat Gran (auto) (0.00-0.031) K/mm3 Absolute Neuts (auto) (1.3-6.7) K/mm3 Absolute Nucleated RBC (0.0-0.012) K/mm3 Nucleated RBC % (0.0-0.2) % PT 19.3 H (11.1-14.7) Seconds INR 1.6 APTT 38.5 H (22.3-36.8) Seconds Sodium 138 (137-145) mmol/L Potassium 4.2 (3.4-5.0) mmol/L Chloride 103 (98-107) mmol/L Carbon Dioxide 26 (22-30) mmol/L Anion Gap 9 (4-12) mmol/L BUN 30 H D (9-20) mg/dL Creatinine 1.50 H (0.7-1.3) mg/dL Estim Creat Clear Calc Not Reportable Estimated GFR 44 L (59 - ) Glucose 110 (65-110) mg/dL Lactic Acid 1.2 (0.7-2.0) mmol/L Calcium 10.0 (8.4-10.2) mg/dL Troponin I 0.013 (0.000-0.034) ng/mL C-Reactive Protein 1.3 H (<1.0) mg/dL Urine Color Yellow (Yellow) Urine Appearance Turbid H (Clear) Urine pH 6.0 (5.0-9.0) Ur Specific [place] 1.018 (1.001-1.035) Urine Protein 1+ H (Negative) mg/dL Urine Glucose (UA) Negative (Negative) mg/dL Urine Ketones Negative (Negative) mg/dL Ur Blood (Man) 2+ H (Negative) Urine Nitrate Negative (Negative) Urine Bilirubin Negative (Negative) Urine Urobilinogen 1.0 (<2.0) mg/dL Add Ur Microanalysis Reviewed Leukocyte Esterase Rfl 3+ H (Negative) BRAYAN/UL Urine RBC 6-10 H (0-2) /hpf Urine WBC >100 H (0-3) /hpf Ur Squamous Epith Cells Occasional (Few) /hpf Urine Bacteria None seen /hpf Urine Casts 0-2 Urine Yeast (Budding) Present H (None) /hpf 07/18/24 Range/Units 21:09 WBC 6.9 (4.5-10.0) K/mm3 RBC 3.72 L (4.6-6.20) M/mm3 Hgb 12.0 L (14.0-18.0) g/dL Hct 35.9 L (42.0-52.0) % MCV 96.5 (80-100) fl MCH 32.3 (26-34) pg MCHC 33.4 (32-36) g/dl RDW 14.4 (11.5-14.5) % Plt Count 257 (150-375) k/mm3 MPV 9.0 (7.4-10.4) fl Immature Gran % (Auto) 0.4 (0-0.5) % Neut % (Auto) 68.9 (45.5-73.1) % Lymph % (Auto) 20.4 (18.3-44.2) % Brooks % (Auto) 8.9 H (2.6-8.5) % Eos % (Auto) 1.3 (0-4.4) % Baso % (Auto) 0.1 L (0.2-1.2) % Lymph # (Auto) 1.40 (0.9-3.2) K/mm3 Brooks # (Auto) 0.6 (0.1-0.6) K/mm3 Eos # (Auto) 0.1 (0-0.3) K/mm3 Baso # (Auto) 0.0 (0.0-0.1) K/mm3 Abs Immat Gran (auto) 0.03 (0.00-0.031) K/mm3 Absolute Neuts (auto) 4.7 (1.3-6.7) K/mm3 Absolute Nucleated RBC 0.000 (0.0-0.012) K/mm3 Nucleated RBC % 0.0 (0.0-0.2) % PT (11.1-14.7) Seconds INR APTT (22.3-36.8) Seconds Sodium (137-145) mmol/L Potassium (3.4-5.0) mmol/L Chloride (98-107) mmol/L Carbon Dioxide (22-30) mmol/L Anion Gap (4-12) mmol/L BUN (9-20) mg/dL Creatinine (0.7-1.3) mg/dL Estim Creat Clear Calc Estimated GFR (59 - ) Glucose (65-110) mg/dL Lactic Acid (0.7-2.0) mmol/L Calcium (8.4-10.2) mg/dL Troponin I (0.000-0.034) ng/mL C-Reactive Protein (<1.0) mg/dL Urine Color (Yellow) Urine Appearance (Clear) Urine pH (5.0-9.0) Ur Specific [place] (1.001-1.035) Urine Protein (Negative) mg/dL Urine Glucose (UA) (Negative) mg/dL Urine Ketones (Negative) mg/dL Ur Blood (Man) (Negative) Urine Nitrate (Negative) Urine Bilirubin (Negative) Urine Urobilinogen (<2.0) mg/dL Add Ur Microanalysis Leukocyte Esterase Rfl (Negative) BRAYAN/UL Urine RBC (0-2) /hpf Urine WBC (0-3) /hpf Ur Squamous Epith Cells (Few) /hpf Urine Bacteria /hpf Urine Casts Urine Yeast (Budding) (None) /hpf <Clara Linton, GRAIN MIXER - Last Filed: 07/18/24 17:01> Lab Results 07/18/24 07/18/24 07/18/24 Range/Units 19:02 19:03 20:39 WBC (4.5-10.0) K/mm3 RBC (4.6-6.20) M/mm3 Hgb (14.0-18.0) g/dL Hct (42.0-52.0) % MCV (80-100) fl MCH (26-34) pg MCHC (32-36) g/dl RDW (11.5-14.5) % Plt Count (150-375) k/mm3 MPV (7.4-10.4) fl Immature Gran % (Auto) (0-0.5) % Neut % (Auto) (45.5-73.1) % Lymph % (Auto) (18.3-44.2) % Brooks % (Auto) (2.6-8.5) % Eos % (Auto) (0-4.4) % Baso % (Auto) (0.2-1.2) % Lymph # (Auto) (0.9-3.2) K/mm3 [place] # (Auto) (0.1-0.6) K/mm3 Eos # (Auto) (0-0.3) K/mm3 Baso # (Auto) (0.0-0.1) K/mm3 Abs Immat Gran (auto) (0.00-0.031) K/mm3 Absolute Neuts (auto) (1.3-6.7) K/mm3 Absolute Nucleated RBC (0.0-0.012) K/mm3 Nucleated RBC % (0.0-0.2) % PT 19.3 H (11.1-14.7) Seconds INR 1.6 APTT 38.5 H (22.3-36.8) Seconds Sodium 138 (137-145) mmol/L Potassium 4.2 (3.4-5.0) mmol/L Chloride 103 (98-107) mmol/L Carbon Dioxide 26 (22-30) mmol/L Anion Gap 9 (4-12) mmol/L BUN 30 H D (9-20) mg/dL Creatinine 1.50 H (0.7-1.3) mg/dL Estim Creat Clear Calc Not Reportable Estimated GFR 44 L (59 - ) Glucose 110 (65-110) mg/dL Lactic Acid 1.2 (0.7-2.0) mmol/L Calcium 10.0 (8.4-10.2) mg/dL Troponin I 0.013 (0.000-0.034) ng/mL C-Reactive Protein 1.3 H (<1.0) mg/dL Urine Color Yellow (Yellow) Urine Appearance Turbid H (Clear) Urine pH 6.0 (5.0-9.0) Ur Specific [place] 1.018 (1.001-1.035) Urine Protein 1+ H (Negative) mg/dL Urine Glucose (UA) Negative (Negative) mg/dL Urine Ketones Negative (Negative) mg/dL Ur Blood (Man) 2+ H (Negative) Urine Nitrate Negative (Negative) Urine Bilirubin Negative (Negative) Urine Urobilinogen 1.0 (<2.0) mg/dL Add Ur Microanalysis Reviewed Leukocyte Esterase Rfl 3+ H (Negative) BRAYAN/UL Urine RBC 6-10 H (0-2) /hpf Urine WBC >100 H (0-3) /hpf Ur Squamous Epith Cells Occasional (Few) /hpf Urine Bacteria None seen /hpf Urine Casts 0-2 Urine Yeast (Budding) Present H (None) /hpf 07/18/24 Range/Units 21:09 WBC 6.9 (4.5-10.0) K/mm3 RBC 3.72 L (4.6-6.20) M/mm3 Hgb 12.0 L (14.0-18.0) g/dL Hct 35.9 L (42.0-52.0) % MCV 96.5 (80-100) fl MCH 32.3 (26-34) pg MCHC 33.4 (32-36) g/dl RDW 14.4 (11.5-14.5) % Plt Count 257 (150-375) k/mm3 MPV 9.0 (7.4-10.4) fl Immature Gran % (Auto) 0.4 (0-0.5) % Neut % (Auto) 68.9 (45.5-73.1) % Lymph % (Auto) 20.4 (18.3-44.2) % Brooks % (Auto) 8.9 H (2.6-8.5) % Eos % (Auto) 1.3 (0-4.4) % Baso % (Auto) 0.1 L (0.2-1.2) % Lymph # (Auto) 1.40 (0.9-3.2) K/mm3 Brooks # (Auto) 0.6 (0.1-0.6) K/mm3 Eos # (Auto) 0.1 (0-0.3) K/mm3 Baso # (Auto) 0.0 (0.0-0.1) K/mm3 Abs Immat Gran (auto) 0.03 (0.00-0.031) K/mm3 Absolute Neuts (auto) 4.7 (1.3-6.7) K/mm3 Absolute Nucleated RBC 0.000 (0.0-0.012) K/mm3 Nucleated RBC % 0.0 (0.0-0.2) % PT (11.1-14.7) Seconds INR APTT (22.3-36.8) Seconds Sodium (137-145) mmol/L Potassium (3.4-5.0) mmol/L Chloride (98-107) mmol/L Carbon Dioxide (22-30) mmol/L Anion Gap (4-12) mmol/L BUN (9-20) mg/dL Creatinine (0.7-1.3) mg/dL Estim Creat Clear Calc Estimated GFR (59 - ) Glucose (65-110) mg/dL Lactic Acid (0.7-2.0) mmol/L Calcium (8.4-10.2) mg/dL Troponin I (0.000-0.034) ng/mL C-Reactive Protein (<1.0) mg/dL Urine Color (Yellow) Urine Appearance (Clear) Urine pH (5.0-9.0) Ur Specific [place] (1.001-1.035) Urine Protein (Negative) mg/dL Urine Glucose (UA) (Negative) mg/dL Urine Ketones (Negative) mg/dL Ur Blood (Man) (Negative) Urine Nitrate (Negative) Urine Bilirubin (Negative) Urine Urobilinogen (<2.0) mg/dL Add Ur Microanalysis Leukocyte Esterase Rfl (Negative) BRAYAN/UL Urine RBC (0-2) /hpf Urine WBC (0-3) /hpf Ur Squamous Epith Cells (Few) /hpf Urine Bacteria /hpf Urine Casts Urine Yeast (Budding) (None) /hpf <Stefanie Perea PA-C - Last Filed: 07/18/24 23:16> Imaging Data Radiologist's impression: ITS Impressions Scrotum Ultrasound 07/18/24 18:06 IMPRESSION: Right epididymal and testicle hypervascularity as can be seen with epididymoorchitis. 1.0 cm, nonsimple hypoechoic focus in the epididymal tail, consider abscess in the differential. Complex moderate right hydrocele. Right varicocele. <Stefanie Perea PA-C - Last Filed: 07/18/24 23:16> Critical Care Time Critical Care Time Critical Care Time: No <Stefanie Perea PA-C - Last Filed: 07/18/24 23:16> Discharge Plan Discharge Clinical Impression: Acute epididymo-orchitis <Clara Linton APRN - Last Filed: 07/18/24 17:01> Patient Disposition: Home, Self-Care <Clara Linton APRN - Last Filed: 07/18/24 17:01> Condition: Stable <Clara Linton APRN - Last Filed: 07/18/24 17:01> Instructions: Antibiotic Form, Epididymo-Orchitis (ED) <Clara Linton APRN - Last Filed: 07/18/24 17:01> Additional Instructions: Return to the ER if you experience fever, abdominal pain with nausea and vomiting, you are unable to keep down liquids or solids, blood in the urine or any other symptoms that are concerning to you Take oral antibiotics as prescribed Follow up with Urology for further evaluation. Call in the morning to make an appointment I would also like you to call your primary doctor in the morning. The antibiotic used to treat your infection can potentially interact with one of your medications. I would like you to have follow up with your primary doctor to monitor for this <Clara Linton APRN - Last Filed: 07/18/24 17:01> Prescriptions: New sulfamethoxazole-trimethoprim 400-80 mg tablet 1 tablet PO BID 10 Days Qty: 20 0RF No Action diclofenac sodium [Arthritis Pain (diclofenac)] 1 % gel 2 g topical QID PRN (Reason: pain) Qty: 100 1RF Rx Instructions: apply to single elbow, wrist or hand; for hand includes palm/fingers/back of hand no more than 8 grams per joint and 32 grams per day Saccharomyces boulardii [Florastor] 250 mg capsule 250 mg PO BID 10 Days Qty: 20 0RF Complete Multivitamin Tablet 1 tablet PO DAILY cholecalciferol (vitamin D3) 50 mcg (2,000 unit) Tablet 50 mcg PO DAILY amiodarone 200 mg Tablet 200 mg PO DAILY dutasteride [Avodart] 0.5 mg capsule 0.5 mg PO DAILY Qty: 90 1RF fenofibrate micronized 130 mg capsule 130 mg PO DAILY Qty: 90 1RF Eliquis 5 mg tablet See Rx Instructions .ROUTE .COMPLEX Qty: 180 1RF Dose Instruction: TAKE 1 TABLET BY MOUTH EVERY 12 HOURS Rx Instructions: TAKE 1 TABLET BY MOUTH EVERY 12 HOURS rosuvastatin 10 mg tablet See Rx Instructions .ROUTE .COMPLEX Qty: 90 1RF Dose Instruction: TAKE 1 TABLET BY MOUTH DAILY Rx Instructions: TAKE 1 TABLET BY MOUTH DAILY carvedilol 6.25 mg tablet 6.25 mg PO BID Qty: 180 1RF Rx Instructions: take 1 tablet by mouth twice a day with a meal/food tamsulosin 0.4 mg capsule See Rx Instructions .ROUTE .COMPLEX Qty: 90 1RF Dose Instruction: TAKE 1 CAPSULE BY MOUTH AT BEDTIME Rx Instructions: TAKE 1 CAPSULE BY MOUTH AT BEDTIME pantoprazole 40 mg tablet,delayed release (DR/EC) See Rx Instructions .ROUTE .COMPLEX Qty: 90 1RF Dose Instruction: TAKE 1 TABLET BY MOUTH EVERY DAY IN THE MORNING Rx Instructions: TAKE 1 TABLET BY MOUTH EVERY DAY IN THE MORNING clopidogrel 75 mg tablet See Rx Instructions .ROUTE .COMPLEX Qty: 90 1RF Dose Instruction: TAKE 1 TABLET BY MOUTH EVERY DAY IN THE MORNING Rx Instructions: TAKE 1 TABLET BY MOUTH EVERY DAY IN THE MORNING Entresto 24-26 mg tablet See Rx Instructions .ROUTE .COMPLEX Qty: 60 5RF Dose Instruction: TAKE 1 TABLET BY MOUTH TWICE A DAY Rx Instructions: TAKE 1 TABLET BY MOUTH TWICE A DAY <Clara Linton APRN - Last Filed: 07/18/24 17:01> Follow-up/Referrals: Nunu Oliva APRN [Advanced Practice Nurse] - 3 Days Zhen Arciniega MD [Physician] - 1 Week <Clara Linton APRN - Last Filed: 07/18/24 17:01>
--- NOTE | 2024-07-18 18:30 | ECG_ITS ---
Test Date: 2024-07-18 18:47:16 Measurements Intervals [place] Rate: 60 P: 70 WA: 196 QRS: 264 QRSD: 146 T: 90 QT: 476 QTc: 478 Interpretive Statements SINUS RHYTHM RIGHT AXIS DEVIATION RIGHT BUNDLE BRANCH BLOCK ANTEROSEPTAL INFARCT, AGE INDETERMINATE BASELINE ARTIFACT- I, II, III, AVR, AVL ABNORMAL ECG No previous ECG available for comparison Electronically Signed On 07-18-2024 19:04:17 TRENCHER DRIVER by Andrey Hightower D.O.
[2024-07-18 19:26] LABS: Lactic Acid Reflex 1.2 mmol/L (0.7-2.0)
[2024-07-18 19:30] LABS: CRP 1.3 mg/dL (<1.0)
[2024-07-18 19:39] LABS: Troponin I 0.013 ng/mL (0.000-0.034)
[2024-07-18 19:56] LABS: INR 1.6; Partial Thromboplastin Time 38.5 Seconds (22.3-36.8); Prothrombin Time 19.3 Seconds (11.1-14.7)
[2024-07-18 20:09] VITALS: BP 127/71; PULSE 60; RESP 16; TEMP 36.7; O2SAT 100
[2024-07-18 21:00] LABS: Add Urine Microscopic? YES; Appearance Urine Turbid (Clear); Bacteria Urine None Seen /hpf; Bilirubin Urine Negative (Negative); Blood Urine 2+ (Negative); Budding Yeast Urine Present /hpf; Color Urine Yellow (Yellow); Glucose Urine UA Negative (Negative); Ketones Urine Negative (Negative); Leukocyte Esterase Ur 3+ LEU/UL (Negative); Need Manual Microscopic Reviewed; Nitrate Urine Negative (Negative); Non Pathogenic Casts 0-2; Protein Urine 1+ mg/dL (Negative); Specific Grav Ur 1.018 (1.001-1.035); Squamous Epithelial Cell Urine Occasional /hpf (Few); WBC Urine >100 /hpf (0-3)
[2024-07-18 21:11] LABS: Anion Gap 9 mmol/L (4-12); Blood Urea Nitrogen 30 mg/dL (9-20); Carbon Dioxide 26 mmol/L (22-30); Chloride 103 mmol/L (98-107); Estimated Glomerular Filt Rate 44; Glucose 110 mg/dL (65-110); Potassium 4.2 mmol/L (3.4-5.0); Sodium 138 mmol/L (137-145)
[2024-07-18 21:18] LABS: Basophils Percent Auto 0.1 % (0.2-1.2); Eosinophils Absolute Auto 0.1 K/mm3 (0-0.3); Eosinophils Percent Auto 1.3 % (0-4.4); Hematocrit 35.9 % (42.0-52.0); Immature Granulocyte Absolute 0.03 K/mm3 (0.00-0.031); Immature Granulocyte Percent A 0.4 % (0-0.5); Lymphocytes Percent Auto 20.4 % (18.3-44.2); Mean Corpuscular HGB Conc 33.4 g/dl (32-36); Mean Corpuscular Hemoglobin 32.3 pg (26-34); Mean Corpuscular Volume 96.5 fl (80-100); Monocytes Absolute Auto 0.6 K/mm3 (0.1-0.6); Monocytes Percent Auto 8.9 % (2.6-8.5); Neutrophils Absolute Auto 4.7 K/mm3 (1.3-6.7); Neutrophils Percent Auto 68.9 % (45.5-73.1); Platelet Count Result 257 k/mm3 (150-375); Red Blood Count 3.72 M/mm3 (4.6-6.20); Red Cell Distribution Width 14.4 % (11.5-14.5); White Blood Count 6.9 K/mm3 (4.5-10.0)
[2024-07-18 21:49] VITALS: BP 90/59; PULSE 64; RESP 15; TEMP 36.6; O2SAT 100
[2024-07-18] MEDS: SODIUM CHLORIDE 0.9% IV 500 ML 999 ML IV CONT (22:28)
[2024-07-18] MEDS: SULFAMETHOXAZOLE/TRIMETHOPRIM 800/160 MG DS TABLET 1 TAB PO (22:44)
[2024-07-18 23:22] VITALS: BP 100/61; PULSE 61; RESP 15; O2SAT 97
== END 2024-07-18 23:23 | disposition home or self-care (01) ==
PROVIDERS: Registered Nurse; Emergency Provider Physician Assistant; PCP Family Medicine
DX: N45.3 Epididymo-orchitis (principal); I25.5 Ischemic cardiomyopathy; I25.2 Old myocardial infarction; E78.5 Hyperlipidemia, unspecified; E53.8 Deficiency of other specified B group vitamins; E55.9 Vitamin D deficiency, unspecified; N40.0 Benign prostatic hyperplasia without lower urinary tract symptoms; Z66 Do not resuscitate; Z95.5 Presence of coronary angioplasty implant and graft; Z87.440 Personal history of urinary (tract) infections; Z87.891 Personal history of nicotine dependence; Z79.01 Long term (current) use of anticoagulants; Z79.899 Other long term (current) drug therapy; I45.10 Unspecified right bundle-branch block; R94.31 Abnormal electrocardiogram [ECG] [EKG]
CPT/HCPCS: 36415; 76870; 80048; 81001; 83605; 84484; 85025; 85610; 85730; 86140; 87040; 87086; 93005; 93976; 99284; A9270; J7040

== ENCOUNTER 2025-03-14 06:47 | Outpatient (CLI) | payer MEDICARE, SELFPAY ==
--- OUTSIDE RECORDS SUMMARY | 2025-03-14 06:52 | XMS_ITS | Clinical Summary ---
Author Organization [facility] Address [id number] [place] [address] Care Team Providers Care Child Attendant Name Role Phone Unavailable Primary Care Provider Unavailabl e Social History Tobacco Use Types Packs/Day Years Used Date Smoking Tobacco: Never Assessed Sex and Gender Information Value Date Recorded Sex Assigned at Not on file Legal Sex Male 6:19 PM CDT Gender Identity Not on file Sexual Orientation Not on file Plan of Treatment Health Maintenance Due Date Last Done Comments DTaP, Tdap and Td Vaccines ( 1 - Tdap) 1954 Pneumococcal Vaccine: 50+ Ye ars (1 of 1 - PCV) 1985 Zoster Vaccines (1 of 2) 1985 RSV Immunization or 60+ Years (1 - 1-dose 75+ series) 2010 COVID-19 Vaccine (2023-2 5 season) 2024 Meningococcal B Vaccine Aged Out No l onger eligible based on patient's age to complete this topic Meningococcal Vaccine Aged Out No ileana tamera eligible based on patient's age to complete this topic RSV Immunizations Under 20 Months Aged Out No longer eligible based on patient's age to complete this topic
--- OUTSIDE RECORDS SUMMARY | 2025-03-14 06:52 | XMS_ITS | Referral Summary ---
Author Organization [facility] Address [address] [place] [id number] Care Team Providers Care Knife Changer Name Role Phone Zhen Arciniega MD Unavailable [phone] Randy Melendez MD Primary Care Provider [phone] Encounters Date Type Department Care Team Description 01/11/2025 Telephone [facility] Medical [facility] Cardiology [address] [place] [address] Virgil Dumont MD 12/18/2024 9:15 AM CDT Office Visit [facility] Medical [facility] Cardiology [address] [place] [address] Virgil Dumont MD History of coronary artery stent placement (Primary Dx); Ischemic cardiomyopathy from Last 3 Months Allergies No known active allergies Medications clopidogreL (PLAVIX) 75 mg tablet Take 1 tablet (75 mg total) by mouth every morning 02/24/[address] (PROTONIX) 40 mg EC tablet Take 1 tablet (40 mg total) by mouth every morning 03/04/2022 Active tamsulosin (FLOMAX) 0.4 mg extended release capsule TAKE 1 (ONE) CAPSULE BY MOUTH AT BEDTIME 01/27/2022 Active dutasteride (AVODART) 0.5 mg capsule Take by mouth daily 01/08/2022 Active cholecalciferol (VITAMIN D-3) 2000 unit tablet Act olivia Entresto 24-26 mg tablet TAKE 1 TABLET BY MOUTH EVERY 12 HOURS FOR 30 DAYS 60 tablet 3 05/26/2022 Active Eliquis 5 mg tablet TAKE 1 TABLET BY MOUTH EVERY 12 HOURS FOR 30 DAYS 60 tablet 3 05/26/2022 Active carvediloL (COREG) 6.25 mg tablet TAKE 1 TABLET BY MOUTH EVERY 12 HOURS FOR 30 DAYS 180 tablet 1 05/26/2022 Active amiodarone (PACERONE) 200 mg tabletIndication s:Atrial fibrillation, unspecified type (HCC) TAKE 1 TABLET BY MOUTH EVERY DAY 90 tablet 1 12/05/2024 Active rosuvastatin (CRESTOR) 10 mg tablet Take 1 tablet (10 mg total) by mouth daily 10/02/2024 Active Active Problems Problem Noted Date Diagnosed Date Ischemic cardiomyopathy 06/04/2022 History of coronary artery stent placement 06/04 Social History Tobacco Use Types Packs/Day Years Used Date Smoking Tobacco: Former Cigarettes Q uit: 1964 Tobacco Cessation:Counseling Given: Not Answered Alcohol Use Standard Drinks/Week Comments Yes 0 (1 standard drink = 0.6 oz pur e alcohol) 1 shot of wine every morning Sex and Gender Information Value Date Recorded Sex Assigned at Not on file 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 Gender Identity Not on file Sexual Orientation Not on file Last Filed Vital Signs Vital Sign Reading Time Taken Comments Blood Pressure 102/60 12/18/2024 9:06 AM CDT Pulse 61 12/18/2024 9:06 AM CDT Temperature - - Respiratory Rate - - Oxygen Saturation 99% 12/18/2024 9:06 AM CDT Inhaled Oxygen Concentration - - Weight 69.2 kg (152 lb 8 oz) 12/18/2024 9:06 AM CDT Height 175.3 cm (5' 9) 12/18/2024 9:06 AM CDT Body Mass Index 22.52 12/18/2024 9:06 AM CDT Plan of Treatment Not on file Insurance [facility] Member Subscriber Plan / Payer (Ef fective 2022-Present) Name:Bradley Holguin Relation to Subscriber:Self Name:Bradley Holguin Payer ID:[id number] (NAIC) Type:MEDICARE RISK OTHER Address: [address] [place] [id number] Member Subscriber Plan / Payer (Ef fective 2022-Present) Name:Bradley Holguin Relation to Subscriber:Self Name:Bradley Holguin Payer ID:[id number] (NAIC) Type:MEDICARE RISK OTHER Address: [address] [place] [id number] [employer] MEDIC[employer] PPO Care Teams Knife Changer Relationship Specialty Start Date End Date Randy Melendez MD PCP - General Family Practice 06/07/23 Zhen Arciniega MD Urologist Urology 07/10/20
--- OUTSIDE RECORDS SUMMARY | 2025-03-14 06:52 | XMS_ITS | Clinical Summary ---
Author Organization [facility] Address [address] [place] [id number] Care Team Providers Care Yarn Mercerizer Operator Name Role Phone Zhen Arciniega MD Unavailable [phone] Randy Melendez MD Primary Care Provider [phone] Allergies No known active allergies Medications clopidogreL [...] History of coronary artery stent placement 06/04 Encounters Date Type Department Care Team Description 01/11/2025 Telephone [facility] Medical [facility] Cardiology [address] [place] [address] Virgil Dumont MD 12/18/2024 9:15 AM CDT Office Visit [facility] Medical [facility] Cardiology [address] [place] [address] Virgil Dumont MD History of coronary artery stent placement (Primary Dx); Ischemic cardiomyopathy from Last 3 Months Medical History Medical History Date Comments Dyslipidemia Urinary retention GERD (gastroesophageal reflux disease) Coronary artery disease Family History Medical History Relation Name Comments Colon cancer Father Prostate cancer Father Relation Name Status Comments Father Social History Tobacco Use Types Packs/Day Years Used Date Smoking Tobacco: Former Cigarettes Q uit: 1964 Tobacco Cessation:Counseling Given: Not Answered Alcohol Use Standard Drinks/Week Comments Yes 0 (1 standard drink = 0.6 oz pur e alcohol) 1 shot of wine every morning Sex and Gender Information Value Date Recorded Sex Assigned at Not on file 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 Gender Identity Not on file Sexual Orientation Not on file Obstetrics History Last Filed Vital Signs Vital Sign Reading [...] 12/18/2024 9:06 AM CDT Plan of Treatment Health Maintenance Due Date Last Done Comments Depression Screening 1935 Fall Risk Assessment 1935 DTaP/Tdap/Td Vaccine (1 - Tdap) 1946 Hepatitis B Screening 1953 Pneumococcal vaccine 65+ (1 of 1 - PCV) 1985 Zoster Vaccine (1 of 2) 1985 Well Visit 65+ 2000 Influenza Vaccine (Season Ended) 2025 Insurance HEALTHCARE Member Subscriber Plan / Payer (Ef fective 2022-Present) Name:Bradley Holguin Relation to Subscriber:Self Name:Bradley Holguin Payer ID:[id number] (NAIC) Type:MEDICARE RISK OTHER Address: [address] [place] [id number] [employer] MEDICARE PPO Care Teams Yarn Mercerizer Operator Relationship Specialty Start Date End Date Randy Melendez MD PCP - General Family Practice 06/07/23 Zhen Arciniega MD Urologist Urology 07/10/20
[2025-03-14 08:08] LABS: Hematocrit 37.1 % (42.0-52.0); Hemoglobin 12.3 g/dL (14.0-18.0); Mean Corpuscular HGB Conc 33.2 g/dl (32-36); Mean Corpuscular Hemoglobin 31.9 pg (26-34); Mean Corpuscular Volume 96.1 fl (80-100); Platelet Count Result 274 k/mm3 (150-375); Red Blood Count 3.86 M/mm3 (4.6-6.20); White Blood Count 5.7 K/mm3 (4.5-10.0)
[2025-03-14 08:14] LABS: Alanine Aminotransferase 27 U/L (6-50); Albumin Level 3.8 g/dL (3.5-5.1); Alkaline Phosphatase 52 U/L (38-126); Anion Gap 10 mmol/L (4-12); Aspartate Amino Transferase 53 U/L (17-59); Bilirubin,Total 0.9 mg/dL (0.2-1.3); Blood Urea Nitrogen 29 mg/dL (9-20); Calcium 9.6 mg/dL (8.4-10.2); Carbon Dioxide 23 mmol/L (22-30); Chloride 105 mmol/L (98-107); Cholesterol 104 mg/dL (0-200); Estimated Glomerular Filt Rate 45; Glucose 104 mg/dL (65-110); HDL Direct 21 mg/dL; Magnesium 1.6 mg/dL (1.6-2.3); Potassium 3.8 mmol/L (3.4-5.0); Sodium 138 mmol/L (137-145); Total Protein 6.6 g/dL (6.3-8.2); Triglycerides 182 mg/dL (<150)
[2025-03-14 09:20] LABS: Vitamin B12 741.0 pg/mL (239-931)
== END 2025-03-14 06:48 | disposition home or self-care (01) ==
PROVIDERS: PCP Nurse Practitioner Family; Visit Provider Nurse Practitioner Family
DX: E78.5 Hyperlipidemia, unspecified (principal); E55.9 Vitamin D deficiency, unspecified; I25.5 Ischemic cardiomyopathy; I25.10 Atherosclerotic heart disease of native coronary artery without angina pectoris; I48.91 Unspecified atrial fibrillation; F41.9 Anxiety disorder, unspecified; K21.9 Gastro-esophageal reflux disease without esophagitis; N18.31 Chronic kidney disease, stage 3a; N40.1 Benign prostatic hyperplasia with lower urinary tract symptoms; R35.1 Nocturia; N43.3 Hydrocele, unspecified; R37 Sexual dysfunction, unspecified; D64.9 Anemia, unspecified; M19.90 Unspecified osteoarthritis, unspecified site; G31.84 Mild cognitive impairment of uncertain or unknown etiology; M47.812 Spondylosis without myelopathy or radiculopathy, cervical region; R79.0 Abnormal level of blood mineral; R79.89 Other specified abnormal findings of blood chemistry; Z91.81 History of falling; Z79.899 Other long term (current) drug therapy
CPT/HCPCS: 36415; 80053; 80061; 82306; 82607; 82746; 83735; 85027